=== PATIENT | female | born 1980 | race African-American/Black ===

== ENCOUNTER 2016-08-07 23:41 | Emergency (ER) | payer MEDICAID ==
[2016-08-08] MEDS ORDERED: ACETAMINOPHEN 325 MG TABLET PO ONE (00:03)
[2016-08-08] MEDS ORDERED: ONDANSETRON 4 MG TAB.RAPDIS PO ONE (00:03)
--- NOTE | 2016-08-08 00:03 | ER Document Report ---
ED Medical Screen (RME) - General Chief Complaint: Headache Stated Complaint: HEADACHE Time seen by provider: 00:00 Mode of Arrival: Ambulatory Information source: Patient Notes: 36-year-old female presents to ED for headache since 3:00 this afternoon. She has a history of elevated blood pressure her blood pressure is 131/76 at this time. She has a history of hypothyroid, she has a pacemaker and anxiety. Cranial nerves grossly intact in RME. Patient is alert and oriented. Sensitive to light and sound. Last menstrual period 07/31/2016. I have greeted and performed a rapid initial assessment of this patient. A comprehensive ED assessment and evaluation of the patient, analysis of test results and completion of medical decision making process will be conducted by an additional ED providers. TRAVEL OUTSIDE OF THE [place] IN LAST 30 DAYS: No - Related Data Allergies/Adverse Reactions: No Known Allergies Allergy (Verified 05/20/13 17:08) Past Medical History - Past Medical History Cardiac Medical History: Reports: Hx Coronary Artery Disease, Hx Heart Attack - cardiac arrest, Hx Hypertension Pulmonary Medical History: Denies: Hx Tuberculosis Psychiatric Medical History: Reports: Hx Depression, Hx Post Traumatic Stress Disorder Past Surgical History: Reports: Hx Cardiac Surgery - ICD, Hx Section - x1 - Immunizations Hx Diphtheria, Pertussis, Tetanus Vaccination: Yes - 2010 Physical Exam - Vital signs Vitals: Temp Pulse Resp BP Pulse Ox 97.8 F 64 16 131/76 H 100 08/07/16 23:50 08/07/16 23:50 08/07/16 23:50 08/07/16 23:50 08/07/16 23:50 Course - Vital Signs Vital signs: Temp Pulse Resp BP Pulse Ox 97.8 F 64 16 131/76 H 100 08/07/16 23:50 08/07/16 23:50 08/07/16 23:50 08/07/16 23:50 08/07/16 23:50
[2016-08-08] MEDS ORDERED: ACETAMINOPHEN 325 MG TABLET ONE (00:04)
[2016-08-08] MEDS ORDERED: ONDANSETRON 4 MG TAB.RAPDIS ONE (00:04)
[2016-08-08] MEDS ORDERED: METOCLOPRAMIDE HCL INJ/PF 10 MG/2 ML SDV IV ONE (03:44)
[2016-08-08] MEDS ORDERED: KETOROLAC TROMETHAMINE INJ/PF 30 MG/1 ML SDV IV ONE (03:44)
[2016-08-08] MEDS ORDERED: DIPHENHYDRAMINE HCL 50 MG/ML VIAL IV ONE (03:44)
--- NOTE | 2016-08-08 03:47 | ER Document Report ---
ED General - General Chief Complaint: Headache Stated Complaint: HEADACHE Mode of Arrival: Ambulatory Notes: Patient is a 36-year-old female presents with complaint of a headache. Patient says that it started as just some mild nagging pain over the right frontal sinus. He gradually worsened throughout the day. Some photophobia. No nausea. No vomiting. No recent traumas or injuries. No pain to the back of her head. No pain in her neck or back. No family history of cerebral aneurysms. No other complaints at this time. TRAVEL OUTSIDE OF THE [place] IN LAST 30 DAYS: No - Related Data Allergies/Adverse Reactions: No Known Allergies Allergy (Verified 05/20/13 17:08) Past Medical History - General Information source: Patient - Social History Smoking Status: Never Smoker Chew tobacco use (# tins/day): No Frequency of alcohol use: None Drug Abuse: None Family History: None Patient has suicidal ideation: No Patient has homicidal ideation: No - Past Medical History Cardiac Medical History: Reports: Hx Coronary Artery Disease, Hx Heart Attack - cardiac arrest, Hx Hypertension Pulmonary Medical History: Denies: Hx Tuberculosis Renal/ Medical History: Denies: Hx Peritoneal Dialysis Psychiatric Medical History: Reports: Hx Depression, Hx Post Traumatic Stress Disorder Past Surgical History: Reports: Hx Cardiac Surgery - ICD, Hx Section - x1 - Immunizations Hx Diphtheria, Pertussis, Tetanus Vaccination: Yes - 2010 Review of Systems - Review of Systems Notes: My Normal Review Basic REVIEW OF SYSTEMS: CONSTITUTIONAL : Denies fever, chills, or sweats. Denies recent illness. RESPIRATORY: Denies cough, cold, or chest congestion. Denies shortness of breath, difficulty breathing, or wheezing. GASTROINTESTINAL: Denies abdominal pain. Denies nausea, vomiting, or diarrhea. Denies constipation. Last BM: MUSCULOSKELETAL: Denies neck or back pain or joint pain or swelling. SKIN: Denies rash or skin lesions. NEUROLOGICAL: Denies altered mental status or loss of consciousness. Has a headache. Denies weakness or paralysis or loss of use of either side. Denies problems with gait or speech. Denies sensory or motor loss. ALL OTHER SYSTEMS REVIEWED AND NEGATIVE. Physical Exam - Vital signs Vitals: Temp Pulse Resp BP Pulse Ox 97.8 F 64 16 131/76 H 100 08/07/16 23:50 08/07/16 23:50 08/07/16 23:50 08/07/16 23:50 08/07/16 23:50 - Notes Notes: General Appearance: Well nourished, alert, cooperative, no acute distress, mild obvious discomfort. Well-appearing Vitals: reviewed, See vital signs table. Head: Mild pain when tapping over the right frontal sinus. Eyes: PERRL, EOMI, Conjuctiva clear Mouth: No decreasd moisture Neck: Supple, no neck tenderness, No thyromegaly Lungs: No wheezing, No rales, No rhonci, No accessory muscle use, good air exchange bilaterally. Heart: Normal rate, Regular rythm, No murmur, no rub Extremities: strength 5/5 in all extremities, good pulses in all extremities, no swelling or tenderness in the extremities, no edema. Skin: warm, dry, appropriate color, no rash Neuro: speech clear, oriented x 3, normal affect, responds appropriately to questions. Cranial nerves II through XII are intact. Distal sensation intact. Patient moves all extremities without difficulty. Course - Vital Signs Vital signs: Temp Pulse Resp BP Pulse Ox 97.8 F 64 16 131/76 H 100 08/07/16 23:50 08/07/16 23:50 08/07/16 23:50 08/07/16 23:50 08/07/16 23:50 - Transfer of Care Notes: 08/08/16 05:26 Patient's headache is completely resolved. She looks very well. I feel she is safe to be discharged home. I do not obtain a CT scan of her head. I do not suspect a life-threatening or serious cause for headache. Subarachnoid hemorrhage is highly unlikely that she has no neurologic deficits, her headache is very gradual in onset, no headache in the back of her head and then associated neck pain, and she looks very well and comfortable. I strongly encouraged patient to return to ER immediately if she has recurrent worsening headaches, fevers, vomiting, or feels unwell. Patient agrees with plan and will be discharged home. Dictation of this chart was performed using voice recognition software; therefore, there may be some unintended grammatical errors. Discharge - Discharge Clinical Impression: Headache Qualifiers: Headache type: unspecified Headache chronicity pattern: acute headache Intractability: not intractable Qualified Code(s): R51 - Headache Condition: Good Disposition: HOME, SELF-CARE Additional Instructions: HEADACHE: The physician does not feel that the headache you are experiencing has a serious underlying cause. Most headaches are due to emotional stress, with resultant muscle tension (tension headache). Occasionally, headaches are secondary to changes in the blood vessels of the scalp (vascular headache and migraine headache). Sometimes, a headache is the first symptom of another developing illness, such as a viral infection. You have no evidence of stroke, bleeding, meningitis, or other serious cause of your headache. The treatment of headaches varies with the severity and cause of the pain. Not all headaches need pain shots. In fact, there is evidence that using narcotics for headaches may make them worse in the long run. The physician will determine the therapy that's in your best interest. If you develop a fever, if the headache is different from any you've previously experienced, or if the headache progressively worsens, then call your physician at once or go to the emergency room. FOLLOW-UP CARE: If you have been referred to a physician for follow-up care, call the physician s office for an appointment as you were instructed or within the next two days. If you experience worsening or a significant change in your symptoms, notify the physician immediately or return to the Emergency Department at any time for re-evaluation. Some of the medication that we gave you may make you sleepy. Please make sure that do take a taxi Home and do not drive. Please return to ER immediately if you have severe, worsening headache, fevers, vomiting, or feel unwell. Referrals: CHUCKY CORCORAN, [Primary Care Provider] - Follow up in 3-5 days
[2016-08-08 06:07] VITALS: BP 116/78
== END 2016-08-08 06:07 | disposition home or self-care (01) ==
LOC: ER 23:41
DX: R51 Headache (principal); I25.10 Atherosclerotic heart disease of native coronary artery without angina pectoris; I10 Essential (primary) hypertension; I25.2 Old myocardial infarction
CPT/HCPCS: 99283; 96374; 96375; J3490; J1200; S0119; J1885; J2765

== ENCOUNTER 2016-11-02 14:13 | Emergency (ER) | payer MEDICAID ==
--- NOTE | 2016-11-02 18:59 | ER Document Report ---
ED General - General Chief Complaint: Knee Pain Stated Complaint: KNEE PAIN Mode of Arrival: Ambulatory Information source: Patient Notes: Patient is a 36-year-old -[place] female presents with right knee pain. Previously she has had chronic knee pain and was seen by her regular doctor advised and a week ago and received a shot in her knee for some swelling. She states today she bent over to [employer] her son and felt something pop in the front part of her knee. She denies any associated swelling, bruising, warmth, redness. She states that she has been ambulatory but as she sits and does not walk, her knee feels stiffer. She has not had any medication for this. TRAVEL OUTSIDE OF THE [place] IN LAST 30 DAYS: No - Related Data Allergies/Adverse Reactions: No Known Allergies Allergy (Verified 11/02/16 15:00) Past Medical History - General Information source: Patient - Social History Smoking Status: Unknown if Ever Smoked Family History: None Patient has suicidal ideation: No Patient has homicidal ideation: No - Past Medical History Cardiac Medical History: Reports: Hx Coronary Artery Disease, Hx Heart Attack - cardiac arrest, Hx Hypertension Pulmonary Medical History: Denies: Hx Tuberculosis Renal/ Medical History: Denies: Hx Peritoneal Dialysis Psychiatric Medical History: Reports: Hx Depression, Hx Post Traumatic Stress Disorder Past Surgical History: Reports: Hx Cardiac Surgery - ICD, Hx Section - x1 - Immunizations Hx Diphtheria, Pertussis, Tetanus Vaccination: Yes - 2010 Review of Systems - Review of Systems Constitutional: See HPI EENT: No symptoms reported Cardiovascular: No symptoms reported Respiratory: No symptoms reported Gastrointestinal: No symptoms reported Genitourinary: No symptoms reported Female Genitourinary: No symptoms reported Musculoskeletal: See HPI Skin: No symptoms reported Hematologic/Lymphatic: No symptoms reported Neurological/Psychological: No symptoms reported Physical Exam - Vital signs Vitals: Temp Pulse Resp BP Pulse Ox 98.3 F 54 L 16 130/85 H 100 11/02/16 15:02 11/02/16 15:02 11/02/16 15:02 11/02/16 15:02 11/02/16 15:02 Interpretation: Hypertensive - Notes Notes: PHYSICAL EXAM: CONSTITUTIONAL: Alert and oriented, well-appearing and in no acute distress. HENT: Normocephalic, atraumatic. Moist mucous membranes. NECK: supple without lymphadenopathy. ROM intact. HEART: Regular rate and rhythm without murmurs. LUNGS: CTAB and equal. No wheezes, rales or rhonchi. BACK: nontender, no paraspinous spasm, 5+/5 strengths, DTRs 2+, SLR -. EXTREMITIES: Right knee - tender to palpation at patella and along patellar- tibial tendon. No effusion, edema, ecchymosis, warmth or erythem anoted. ROM intact in flexion and extension. Negative anterior and posterior drawer test. Varus and Valgus stress negative for pain or laxity. All other extremities - Normal range of motion, no pitting edema. No cyanosis. Cap Refill <3 seconds. NEURO: Cranial nerves grossly intact. Normal sensory/motor exams. SKIN: Warm and dry. Normal turgor. No rashes or lesions noted. Course - Re-evaluation Re-evalutation: 11/02/16 19:11 Patient seen and examined. Exam of right knee is negative for evidence of cellulitis, compartment syndrome, acute fracture or dislocation. Range of motion intact. Neurovascular intact. Exam consistent with knee sprain. At this time without bony tenderness or traumatic injury, I do not feel x-rays are warranted. Will provide patient with anti-inflammatory and Hadley wrap. Advised patient to follow up with her primary care doctor for referral to orthopedics. Patient in agreement with assessment and plan. At this time, will discharge with return precautions and follow-up recommendations. Verbal discharge instructions given at the bedside and opportunity for questions given. Medication warnings reviewed. Patient is in agreement with this plan and has verbalized understanding of return precautions and the need for primary care follow-up in the next 24-72 hours. - Vital Signs Vital signs: Temp Pulse Resp BP Pulse Ox 98.3 F 54 L 16 130/85 H 100 11/02/16 15:02 11/02/16 15:02 11/02/16 15:02 11/02/16 15:02 11/02/16 15:02 Procedures - Immobilization Right Anterior Knee Pre-Proc Neuro Vasc Exam: Normal Immobilizer type: Hadley wrap Performed by: PCT Post-Proc Neuro Vasc Exam: Normal Alignment checked and good: Yes Discharge - Discharge Clinical Impression: Right knee sprain Qualifiers: Encounter type: initial encounter Involved ligament of knee: other ligament Qualified Code(s): S83.8X1A - Sprain of other specified parts of right knee, initial encounter Condition: Stable Disposition: HOME, SELF-CARE Additional Instructions: Call your primary care doctor to schedule follow-up appointment. We recommended you follow up with them within the next 1-2 days. Please return if you experience any severe pain, severe swelling, redness, warmth. SPRAIN: Your injury is a sprain. A sprain results from stretching or tearing of the ligaments, usually from a twisting injury. The ligaments will require time and protection in order to heal properly. Many sprains are quite disabling and should be taken seriously. The usual initial treatment of sprains is cold packs, elevation, and rest of the injured area. Your physician has assessed the seriousness of your ligament injury, and has outlined a treatment plan. Understand that this treatment may change, depending on how you progress. If a re-examination was recommended, it is important that you follow up as instructed. Call the doctor any time if there is severe pain, numbness, or loss of function in the injured area. HADLEY WRAP: A compression dressing (hadley wrap) has been placed. This helps hold the area still. It limits swelling and internal bleeding. The wrap should be comfortably snug -- not tight. You should feel a sense of pressure, but not severe pain under the wrap. Unless the physician tells you otherwise, you can adjust the wrap for comfort. If the wrap causes symptoms suggesting it's too tight -- uncomfortable pressure, swelling or discoloration beyond the wrap, numbness, or severe pain - - you must loosen the wrap. If these symptoms don't resolve promptly, return for re-evaluation. SPRAINED KNEE: Your sprained knee results from a stretching or tearing of the ligaments which support the joint. This often results from a bending stress -- such as a twisting fall while skiing or a "clip" while playing football. The ligaments will require time and protection to heal adequately. A knee sprain can be quite serious, and should be taken seriously. The usual treatment is splinting of the knee, ice packs, and elevation. You shouldn't walk on the leg if weightbearing is painful. Unless the sprain is obviously a minor one, follow-up exam is very important. The degree of ligament damage often cannot be fully assessed at first due to muscle spasm and pain. Your treatment plan may change based on the physician's findings during your follow-up examination. Call the doctor at once if there is severe swelling, increasing pain, numbness, or other alarming symptoms. USE OF CRUTCHES: The doctor has recommended that you not bear weight at this time. You will need to use crutches. Adjust the crutches so the tops come to about two inches under the armpit while you are standing upright. Use your hands -- not your armpits -- to support your weight. To get into a chair, support yourself with one crutch on the injured side. Hold the chair with the other hand, then lower yourself while putting all your weight on the good leg. Going up stairs is `good leg up, step up, then bring up crutches and bad leg.' Down stairs is `bad leg and crutches down, then bring good leg down.' If you develop numbness or swelling in an arm or hand, you are using the crutches incorrectly. Return if you are having any problems with the crutches. ICE & ELEVATION: Apply ice packs frequently against the painful area. Many different schedules are recommended, such as "20 minutes on, 20 minutes off" or "one hour ice, two hours rest." If you need to work, you may need to go longer between ice treatments. You should plan to have the area ice packed AT LEAST one- fourth of the time. The ice should be applied over the wrap, tape, or splint, or over a layer of cloth -- not directly against the skin. Some ice bags have a built-in cloth and can be put directly on the skin. Your injured part should be elevated as much as possible over the next 48 hours. Try to keep the injury above the level of the heart. Avoid use of the injured area. Elevation and rest will decrease the swelling. USE OF [id number] IBUPROFEN: Ibuprofen (Advil, Nuprin, Medipren, Motrin IB) is a medication for fever and pain control. In addition, it has anti- inflammatory effects which may be beneficial, especially in the treatment of injuries. It's best to take ibuprofen with food. Persons with ulcer disease or allergy to aspirin should notify their physician of this before taking ibuprofen. Ibuprofen can be given every four to six hours, for a total of four doses daily. Age Pain or fever dose Antiinflammatory dose 6-8 yr 200 mg (1 tab) 200 mg (1 tab) 9-11 yr 200 mg (1 tab) 200-400 mg (1-2 tab) 11-14 yr 200-400 mg (1-2 tab) 400 mg (2 tab) 15-adult 400 mg (2 tab) 600 mg (3 tab) ORAL NARCOTIC MEDICATION: You have been given a prescription for pain control. This medication is a narcotic. It's best taken with food, as nausea can result if taken on an empty stomach. Don't operate machinery or drive within six hours of taking this medication. Do not combine this medicine with alcohol, or with any medication which can cause sedation (such as cold tablets or sleeping pills) unless you get permission from the physician. Narcotics tend to cause constipation. If possible, drink plenty of fluids and eat a diet high in fiber and fruits. Please be aware that prescription narcotics also have the potential for abuse. People become addicted to these medications because of the general sense of wellbeing that they induce. This feeling along with a significant reduction in tension, anxiety, and aggression provides a stimulating seductive quality to these drugs. Once your pain is under control, we encourage you to discard your unused narcotics. FOLLOW-UP CARE: If you have been referred to a physician for follow-up care, call the physician s office for an appointment as you were instructed or within the next two days. If you experience worsening or a significant change in your symptoms, notify the physician immediately or return to the Emergency Department at any time for re-evaluation. Prescriptions: Tramadol HCl/Acetaminophen [Ultracet 37.5 mg/325 mg Tablet] 1 each PO Q8H #20 tablet Forms: Return to Work
[2016-11-02] MEDS ORDERED: HYDROCODONE/ACETAMINOPHEN 5-325 MG TABLET PO ONE (19:07)
[2016-11-02 20:03] VITALS: BP 127/84
== END 2016-11-02 20:03 | disposition home or self-care (01) ==
LOC: ER 14:13
DX: S83.91XA Sprain of unspecified site of right knee, initial encounter (principal); X58.XXXA Exposure to other specified factors, initial encounter; I25.10 Atherosclerotic heart disease of native coronary artery without angina pectoris; I25.2 Old myocardial infarction; I10 Essential (primary) hypertension; Z95.810 Presence of automatic (implantable) cardiac defibrillator
CPT/HCPCS: 99283

== ENCOUNTER → 2016-11-11 | Outpatient (CLI) | payer MEDICAID | LOC: OD 09:03 | PROVIDERS: ATTEND Student in an Organized Health Care Education/Training Program | DX: M25.561 Pain in right knee (principal) ==

== ENCOUNTER 2017-03-10 04:07 | Emergency (ER) | payer MEDICAID ==
--- NOTE | 2017-03-10 04:41 | ER Document Report ---
ED Medical Screen (RME) - General Chief Complaint: Chest Pain Stated Complaint: CHEST PAIN Time Seen by Provider: 03/10/17 04:40 Notes: Patient is a 37-year-old female who comes emergency department for chief complaint of her defibrillator firing, she states she awoke from sleep because her defibrillator fired, she states that it fired once more. She denies feeling palpitations, racing heart, or chest pain before it fired the second time when she was awake. She denies any current symptoms other than feeling nervous. She states she thinks she has a pacer/defibrillator but she isn't sure. She states she has it because she had a "cardiac arrest" in 2012. She denies bypass surgery or stenting. She is medicated for hyperthyroidism, anxiety, and also takes metoprolol. She reports she is compliant with her medications. TRAVEL OUTSIDE OF THE [place] IN LAST 30 DAYS: No - Related Data Allergies/Adverse Reactions: No Known Allergies Allergy (Verified 11/02/16 15:00) Past Medical History - Past Medical History Cardiac Medical History: Reports: Hx Coronary Artery Disease, Hx Heart Attack - cardiac arrest, Hx Hypertension Pulmonary Medical History: Denies: Hx Tuberculosis Renal/ Medical History: Denies: Hx Peritoneal Dialysis Psychiatric Medical History: Reports: Hx Depression, Hx Post Traumatic Stress Disorder Past Surgical History: Reports: Hx Cardiac Surgery - ICD, Hx Section - x1 - Immunizations Hx Diphtheria, Pertussis, Tetanus Vaccination: Yes - 2010 Physical Exam - Respiratory Respiratory status: No respiratory distress Breath sounds: Normal. No: Decreased air movement, Wheezing - Cardiovascular Rhythm: Regular. No: Tachycardia Heart sounds: Normal auscultation, S1 appreciated, S2 appreciated
[2017-03-10 04:57] LABS: ABSOLUTE LYMPHOCYTES (AUTO) 1.6 10^3/uL (0.5-4.7); ABSOLUTE MONOCYTES (AUTO) 0.6 10^3/uL (0.1-1.4); ABSOLUTE NEUT (AUTO) 2.4 10^3/uL (1.7-8.2); BASOPHILS % (AUTO) 0.7 % (0-2); EOSINOPHILS % (AUTO) 0.5 % (0-6); HEMOGLOBIN 10.9 g/dL (12.0-15.5); HGB HCT DIFFERENCE -1.3; LYMPHOCYTES % (AUTO) 34.5 % (13-45); MEAN CORPUSCULAR HEMOGLOBIN 27.2 pg (27.0-33.4); MEAN CORPUSCULAR HGB CONC 32.2 g/dL (32.0-36.0); MEAN CORPUSCULAR VOLUME 85 fl (80-97); MONOCYTES % (AUTO) 12.4 % (3-13); RED BLOOD COUNT 4.02 10^6/uL (3.72-5.28); RED CELL DISTRIBUTION WIDTH 16.2 % (11.5-14.0); SEGMENTED NEUTROPHILS % (AUTO) 51.9 % (42-78); WHITE BLOOD COUNT 4.6 10^3/uL (4.0-10.5)
--- NOTE | 2017-03-10 05:19 | RADIOLOGY REPORT (SQ) ---
EXAM DESCRIPTION: CHEST SINGLE VIEW COMPLETED DATE/TIME: 03/10/2017 5:09 am REASON FOR STUDY: chest pain COMPARISON: Chest x-ray 06/08/2013. EXAM PARAMETERS: NUMBER OF VIEWS: One view. TECHNIQUE: Single frontal radiographic view of the chest acquired. RADIATION DOSE: NA LIMITATIONS: None. FINDINGS: LUNGS AND PLEURA: No consolidation, pneumothorax or pleural effusion. MEDIASTINUM AND HILAR STRUCTURES: No masses. Contour normal. HEART AND VASCULAR STRUCTURES: Heart normal in size. Normal vasculature. BONES: No acute findings. HARDWARE: There is a left-sided pacemaker. IMPRESSION: No acute radiographic finding in the chest. TECHNICAL DOCUMENTATION: JOB ID: [id number]
[2017-03-10 05:39] LABS: CREATINE KINASE MB < 0.22 ng/mL (<4.55); TROPONIN I < 0.012 ng/mL
[2017-03-10 06:15] LABS: ALANINE AMINOTRANSFERASE 23 U/L (9-52); ALBUMIN 4.1 g/dL (3.5-5.0); ALKALINE PHOSPHATASE 66 U/L (38-126); ANION GAP 11 (5-19); ASPARTATE AMINO TRANSFERASE 30 U/L (14-36); BILIRUBIN,DIRECT 0.4 mg/dL (0.0-0.4); BILIRUBIN,TOTAL 0.5 mg/dL (0.2-1.3); BLOOD UREA NITROGEN 15 mg/dL (7-20); CALCIUM 9.3 mg/dL (8.4-10.2); CARBON DIOXIDE 25 mmol/L (22-30); CHLORIDE 101 mmol/L (98-107); CREATINE KINASE 89 U/L (30-135); CREATININE RESULT 0.86 mg/dL (0.52-1.25); GLUCOSE 100 mg/dL (75-110); MAGNESIUM 1.5 mg/dL (1.6-2.3); POTASSIUM 3.3 mmol/L (3.6-5.0); SODIUM 136.8 mmol/L (137-145); TOTAL PROTEIN 7.7 g/dL (6.3-8.2)
--- NOTE | 2017-03-10 06:58 | ER Document Report ---
ED Cardiac - General Mode of Arrival: Ambulatory Information source: Patient TRAVEL OUTSIDE OF THE [place] IN LAST 30 DAYS: No <AIDA LITTLE - Last Filed: 03/10/17 07:14> <NIDA GOMEZ - Last Filed: 03/10/17 09:47> - General Chief Complaint: Chest Pain Stated Complaint: CHEST PAIN Time Seen by Provider: 03/10/17 04:40 Notes: Patient is a 37-year-old female who presents to the emergency department today with complaints of her defibrillator firing 2 prior to arrival. Patient had her defibrillator placed in 2010 secondary to "cardiac arrest". Patient is unsure of the details regarding this arrest. Patient states that the last time her defibrillator fired was in 2012 when it fired twice at that time as well. Patient states she was sleeping today when her defibrillator discharged. Patient has no complaints at this time. (AIDA LITTLE) - Related Data Allergies/Adverse Reactions: No Known Allergies Allergy (Verified 11/02/16 15:00) Home Medications: Current Home Medications Ascorbic Acid [Vitamin C] 1,000 mg PO DAILY 03/10/17 [History] Aspirin 81 mg PO DAILY 03/10/17 [History] Buspirone HCl [Buspar 5 mg Tablet] 1 tab PO BID 03/10/17 [History] Cholecalciferol (Vitamin D3) [Vitamin D3 2000 unit Tablet] 2,000 unit PO DAILY 03/10/17 [History] Clonazepam [Klonopin 1 mg Tablet] 1 mg PO BID 03/10/17 [History] Ferrous Gluconate [Iron] 236 mg PO DAILY 03/10/17 [History] Magnesium Oxide [Magox] 400 mg PO DAILY 03/10/17 [History] Methimazole [Tapazole 5 Mg Tablet] 2.5 mg PO DAILY 03/10/17 [History] Metoprolol Tartrate [Lopressor 100 mg Tablet] 100 mg PO Q12 03/10/17 [History] Omeprazole 40 mg PO DAILY 03/10/17 [History] Past Medical History - General Information source: Patient - Social History Smoking Status: Never Smoker Cigarette use (# per day): No Chew tobacco use (# tins/day): No Frequency of alcohol use: None Drug Abuse: None Lives with: Family Family History: None Patient has suicidal ideation: No Patient has homicidal ideation: No - Past Medical History Cardiac Medical History: Reports: Hx Coronary Artery Disease, Hx Heart Attack - cardiac arrest, Hx Hypertension Psychiatric Medical History: Reports: Hx Depression, Hx Post Traumatic Stress Disorder Past Surgical History: Reports: Hx Cardiac Surgery - ICD, Hx Section - x1 - Immunizations Hx Diphtheria, Pertussis, Tetanus Vaccination: Yes - 2010 <AIDA LITTLE - Last Filed: 03/10/17 07:14> Review of Systems - Review of Systems Constitutional: No symptoms reported EENT: No symptoms reported Cardiovascular: See HPI, Other - Defibrillator fired Respiratory: No symptoms reported Gastrointestinal: No symptoms reported Genitourinary: No symptoms reported Female Genitourinary: No symptoms reported Musculoskeletal: No symptoms reported Skin: No symptoms reported Hematologic/Lymphatic: No symptoms reported Neurological/Psychological: No symptoms reported -: Yes All other systems reviewed and negative <AIDA LITTLE - Last Filed: 03/10/17 07:14> Physical Exam <AIDA LITTLE - Last Filed: 03/10/17 07:14> <NIDA GOMEZ - Last Filed: 03/10/17 09:47> - Vital signs Vitals: Resp Pulse Ox 19 100 03/10/17 04:39 03/10/17 04:39 - Notes Notes: Physical Exam: General: Alert, appears well. HEENT: Normocephalic. Atraumatic. PERRL. Extraocular movements intact. Oropharynx clear. Neck: Supple. Non-tender. Respiratory: No respiratory distress. Clear and equal breath sounds bilaterally. Cardiovascular: Regular rate and rhythm. Abdominal: Obese. Non-tender. No distension. Normal Bowel Sounds. Back: Non-tender. No deformity or step off. Extremities: Moves all four extremities. Upper extremities: Normal inspection. Normal ROM. Lower extremities: Normal inspection. No edema. Normal ROM. Neurological: Normal cognition. AAOx4. Normal speech. Psychological: Normal affect. Normal Mood. Skin: Warm. Dry. Normal color. (AIDA LITTLE) Course - Laboratory Result Diagrams: 03/10/17 04:45 03/10/17 04:45 <AIDA LITTLE - Last Filed: 03/10/17 07:14> - Laboratory Result Diagrams: 03/10/17 04:45 03/10/17 04:45 - Diagnostic Test Radiology reviewed: Image reviewed, Reports reviewed - NAD - EKG Interpretation by Me EKG shows normal: Sinus rhythm, [place], Intervals, QRS Complexes, ST-T Waves Rate: Normal - 84 Rhythm: NSR <NDIA GOMEZ - Last Filed: 03/10/17 09:47> - Re-evaluation Re-evalutation: 03/10/17 09:18 Report from [employer] shows the patient's defibrillator went off at 02 38 in response to sustained V. fib. It only shows the defibrillator going off one time. (NIDA GOMEZ) - Vital Signs Vital signs: Temp Pulse Resp BP Pulse Ox 98.4 F 12 112/70 100 03/10/17 04:49 03/10/17 09:01 03/10/17 09:01 03/10/17 09:01 - Laboratory Laboratory results interpreted by me: 03/10/17 03/10/17 04:45 04:45 Hgb 10.9 L Hct 34.0 L RDW 16.2 H Sodium 136.8 L Potassium 3.3 L Magnesium 1.5 L Discharge <AIDA LITTLE - Last Filed: 03/10/17 07:14> <NIDA GOMEZ - Last Filed: 03/10/17 09:47> - Discharge Clinical Impression: Ventricular fibrillation, Defibrillator discharge, Hypokalemia, Hypomagnesemia Condition: Stable Disposition: HOME, SELF-CARE Additional Instructions: The analysis of your defibrillator shows it fired only one time in response to sustained ventricular fibrillation. Your magnesium levels were low just as they were when you were admitted here in 2012. Your potassium levels are also low today. You should increase magnesium and potassium in your diet. Follow-up with Dr. Solorzano tomorrow in the office as planned. RETURN TO THE EMERGENCY ROOM IF ANY NEW OR WORSENING SYMPTOMS. Referrals: MAME SOLORZANO MD [ACTIVE STAFF] - Follow up tomorrow Scribe Attestation: 03/10/17 08:22 I personally performed the services described in the documentation, reviewed and edited the documentation which was dictated to the scribe in my presence, and it accurately records my words and actions. (NIDA GOMEZ) Scribe Documentation - Scribe Written by Amarilys:: Amarilys Durbin, 03/10/2017 0735 acting as scribe for :: Eron <AIDA LITTLE - Last Filed: 03/10/17 07:14>
[2017-03-10] MEDS ORDERED: MAGNESIUM SULFATE INJ 8 MEQ/2 ML IV ONE (07:48)
[2017-03-10] MEDS ORDERED: POTASSIUM CHLORIDE 20 MEQ/15 ML UDCUP PO ONE (07:48)
[2017-03-10 08:58] LABS: FREE T3 4.67 pg/mL (2.77-5.27)
[2017-03-10 10:10] VITALS: BP 118/74
--- NOTE | 2017-03-10 19:34 | PDOC CONSULTATION ---
Consultation Consult Date: 03/10/17 Attending physician:: NIDA GOMEZ Consult reason:: Defibrillator discharges History of Present Illness Admission Date/PCP: CHUCKY CORCORAN DO Patient complains of: Defibrillator discharges History of Present Illness: MARK URIAS is a 37 year old female who presents to the emergency department today with complaints of her defibrillator firing 2 prior to arrival. Patient had her defibrillator placed in 2010 secondary to "cardiac arrest". Patient is unsure of the details regarding this arrest. Patient states that the last time her defibrillator fired was in 2012 when it fired twice at that time as well. Patient states she was sleeping today when her defibrillator discharged. Patient has no complaints at this time. Patient claims that at the time of defibrillator placement she also had a heart catheterization during which she was noted to have patent coronaries. Patient is denying any exertional chest pain. Patient does have history of snoring, difficulty falling asleep, staying asleep, daytime fatigue and sleepiness. Patient denied any family history of premature coronary artery disease or sudden cardiac . Past Medical History Cardiac Medical History: Reports: Coronary Artery Disease, Myocardial Infarction - cardiac arrest, Hypertension Pulmonary Medical History: Denies: Tuberculosis Psychiatric Medical History: Reports: Depression, Post Traumatic Stress Disorder Hematology: Reports: Anemia Past Surgical History Past Surgical History: Reports: Section - x1 Social History Information Source: Patient Lives with: Family Smoking Status: Never Smoker Frequency of Alcohol Use: None Hx Recreational Drug Use: No Hx Prescription Drug Abuse: No - Advance Directive Resuscitation Status: Full Code Family History Family History: Hypertension Parental Family History Reviewed: Yes Children Family History Reviewed: Yes Sibling(s) Family History Reviewed.: Yes Medication/Allergy Home Medications: Ascorbic Acid [Vitamin C] 1,000 mg PO DAILY 03/10/17 Aspirin 81 mg PO DAILY 03/10/17 Buspirone HCl [Buspar 5 mg Tablet] 1 tab PO BID 03/10/17 Cholecalciferol (Vitamin D3) [Vitamin D3 2000 unit Tablet] 2,000 unit PO DAILY 03/10/17 Clonazepam [Klonopin 1 mg Tablet] 1 mg PO BID 03/10/17 Ferrous Gluconate [Iron] 236 mg PO DAILY 03/10/17 Magnesium Oxide [Magox] 400 mg PO DAILY 03/10/17 Methimazole [Tapazole 5 Mg Tablet] 2.5 mg PO DAILY 03/10/17 Metoprolol Tartrate [Lopressor 100 mg Tablet] 100 mg PO Q12 03/10/17 Omeprazole 40 mg PO DAILY 03/10/17 Allergies/Adverse Reactions: No Known Allergies Allergy (Verified 11/02/16 15:00) Review of Systems Review of Systems: Please see history of present illness and past medical history as wall. Constitutional: No fever or chills reported. Head : No recent chronic headaches, recent head injury. Eyes: No recent eye pain, diplopia, redness, discharge, acute visual changes. Ears: No recent chronic ear pain, acute hearing loss, ear discharge. Oral cavity: No recent ulcerations, bleeding, oral cavity discomfort. Neck: No recent acute neck pain reported. Hematologic: No recent easy bruising or bleeding or hematologic malignancy reported. Lymphatic: No recent lymphatic malignancy, chronic lymphadenopathy reported yet Cardiovascular system review: See history of present illness. Respiratory system review: No recent chronic cough, hemoptysis, blood clots in the lungs reported. Mild Shortness of breath on exertion. Defibrillator shocks in the past. Gastrointestinal system review: Negative for any recent acute or chronic abdominal pain, hematemesis, melena, recent change in bowel habits. Genitourinary system review: No recent acute or chronic hematuria, flank pain, UTI etc. reported. Skin system review: Negative for any recent abnormal bruising, no rash, no pruritus reported. Neurologic: No prior history of strokes, mini strokes, seizure disorder. Psychologic: No history of major psychosis or major depression reported. Musculoskeletal: Minor aches and pains reported. No acute joint swelling reported. Endocrine: No recent polyuria, polydipsia, recent heat or cold intolerance. Patient has difficulty falling asleep, staying asleep, snoring, daytime fatigue and sleepiness. Physical Exam Vital Signs: Temp Pulse Resp BP Pulse Ox 98.4 F 17 118/74 100 03/10/17 09:57 03/10/17 09:56 03/10/17 09:57 03/10/17 09:01 Intake & Output 03/09/17 03/10/17 03/11/17 06:59 06:59 06:59 Weight 120 kg Results Laboratory Results: 03/10/17 04:45 03/10/17 04:45 03/10/17 03/10/17 03/10/17 04:45 04:45 04:45 WBC 4.6 RBC 4.02 Hgb 10.9 L Hct 34.0 L MCV 85 MCH 27.2 MCHC 32.2 RDW 16.2 H Plt Count 201 Seg Neutrophils % 51.9 Lymphocytes % 34.5 Monocytes % 12.4 Eosinophils % 0.5 Basophils % 0.7 Absolute Neutrophils 2.4 Absolute Lymphocytes 1.6 Absolute Monocytes 0.6 Absolute Eosinophils 0.0 Absolute Basophils 0.0 Sodium 136.8 L Potassium 3.3 L Chloride 101 Carbon Dioxide 25 Anion Gap 11 BUN 15 Creatinine 0.86 Est GFR ( Amer) > 60 Est GFR (Non-Af Amer) > 60 Glucose 100 Calcium 9.3 Magnesium 1.5 L Total Bilirubin 0.5 AST 30 ALT 23 Alkaline Phosphatase 66 Total Protein 7.7 Albumin 4.1 Free T4 Free T3 pg/mL Serum HCG, Qual Cancelled 03/10/17 03/10/17 04:45 06:25 WBC RBC Hgb Hct MCV MCH MCHC RDW Plt Count Seg Neutrophils % Lymphocytes % Monocytes % Eosinophils % Basophils % Absolute Neutrophils Absolute Lymphocytes Absolute Monocytes Absolute Eosinophils Absolute Basophils Sodium Potassium Chloride Carbon Dioxide Anion Gap BUN Creatinine Est GFR ( Amer) Est GFR (Non-Af Amer) Glucose Calcium Magnesium Total Bilirubin AST ALT Alkaline Phosphatase Total Protein Albumin Free T4 1.24 Free T3 pg/mL 4.67 Serum HCG, Qual NEGATIVE 03/10/17 03/10/17 04:45 04:45 Creatine Kinase 89 CK-MB (CK-2) < 0.22 Troponin I < 0.012 EKG Comments: Sinus rhythm, no acute ST-T wave changes noted. Impressions: Chest X-Ray 03/10/17 04:29 IMPRESSION: No acute radiographic finding in the chest. Status: Image reviewed by me - Chest x-ray reviewed by me. Shows borderline cardiomegaly and a single-chamber defibrillator. Assessment & Plan - Diagnosis (1) Defibrillator discharge Is this a current diagnosis for this admission?: Yes (2) Hypokalemia Is this a current diagnosis for this admission?: Yes (3) Hypomagnesemia Is this a current diagnosis for this admission?: Yes (4) Ventricular fibrillation Is this a current diagnosis for this admission?: Yes (5) Obesity Qualifiers: Obesity type: unspecified obesity type Is this a current diagnosis for this admission?: Yes (6) Sleep disorder Is this a current diagnosis for this admission?: Yes - Notes Notes: Defibrillator discharge: Patient does seem to have a functional defibrillator. Patient defibrillator was interrogated. Single shock was reported for ventricular fibrillation at 21 J. Previous records shows multiple episodes of nonsustained ventricular dysrhythmia but no therapy was applied. Patient last antitachycardia pacing with shocks happened in May 2013. Patient's potassium and magnesium were noted to be low and this will be optimized. Ventricular fibrillation: Patient was shocked because of it. There has been no recurrence while being monitored. Hypokalemia: Replace potassium. Will consider spironolactone therapy as an outpatient. Hypomagnesemia: Patient to continue with magnesium replacement. Obesity: Patient advised in weight loss. Sleep disorder/sleep apnea syndrome: Is strongly suspected. Patient will benefit from a sleep study as an outpatient. Patient wanted to be discharged, feel that patient has been monitored long enough in the ER and there was no recurrence of ventricular dysrhythmia. Electrolytes has been replaced. Patient to receive advised to be compliant with medications. Patient can be discharged with outpatient appointment with me tomorrow. Importance of this discussed. Patient to come back to the ER showed recurrence of her defibrillator shocks, sustained palpitations, dizziness syncope or near syncope occurs. Cardiomyopathy: Patient likely to have this condition. Further evaluation with a 2D echocardiogram will be needed. - Time Time Spent: 30 to 50 Minutes - CODE STATUS was discussed, patient remains full code. Surrogate decision-maker not identified by the patient. Multiple medical problems were addressed. More than 50% of the time spent coordinating care, discussing management plans with involved caregivers. Management plans discussed with involved personnels. Medical decision making was of moderate to high complexity, patient's has multiple comorbidities. Medications reviewed and adjusted accordingly: Yes
--- NOTE | 2017-03-10 19:48 | EKG REPORT ---
SEVERITY:- NORMAL ECG - SINUS RHYTHM : Confirmed by: Capo Germain MD 10-Mar-2017 19:46:29
== END 2017-03-10 09:57 | disposition home or self-care (01) ==
LOC: ER 04:07
DX: I49.01 Ventricular fibrillation (principal); E87.6 Hypokalemia; E83.42 Hypomagnesemia; R07.9 Chest pain, unspecified; Z79.899 Other long term (current) drug therapy
CPT/HCPCS: 93005; 99285; 96374; 36415; 84439; 82553; 82550; 83735; 84703; 85025; 80053; 84484; 84481; 71010; 93010; J3475; J3490

== ENCOUNTER → 2017-05-31 | Outpatient (CLI) | payer MEDICAID ==
--- NOTE | 2017-05-31 19:37 | XCELERA REPORT ---
[address] [address] Transthoracic Echocardiogram Report Name: MARK URIAS Age: 37 yrs Gender: Female : 1980 Patient Status: Outpatient Patient Location: Study Date: 05/31/2017 09:45 AM Height: 69 in Weight: 256 lb BSA: 2.3 m2 Reason For Study: CARDIOMYOPATHY Ordering Physician: MARTELL HOLGUIN Performed By: Carolina Mcneil Interpretation Summary small post peric. effusion or fat pad. TR is trace, no pulm hypertension derived. RV poorly seen, RA not delineated well AV morphology poorly seen, no , and no AR. MV no MS. mp MR, and no LA enlargement. LV mild septal hypertrophy, incomplete LV segments visualization. LVEF is at least low normal.>50%. no LV enlargement. LVEDP is elevated. MMode/2D Measurements & Calculations RVDd: 2.9 cm LVIDd: 4.8 cmFS: 26.4 % Ao root diam: 3.2 cm IVSd: 1.1 cm LVIDs: 3.5 cmEDV(Teich): 107.9 ml LVPWd: 1.0 cmESV(Teich): 52.3 ml Ao root area: 7.9 cm2 EF(Teich): 51.5 % LA dimension: 3.9 cm LVOT diam: 2.3 cm LVOT area: 4.2 cm2 Doppler Measurements & Calculations MV E max jluia: MV P1/2t max julia: Ao V2 max: LV V1 max P.6 cm/sec 114.0 cm/sec 125.6 cm/sec 4.5 mmHg MV A max julia: MV P1/2t: 49.1 msec Ao max PG: LV V1 max: 48.9 cm/sec MVA(P1/2t): 4.5 cm2 6.3 mmHg 106.6 cm/sec MV E/A: 2.3 MV dec slope: CAMI(V,D): 3.6 cm2 680.5 cm/sec2 PA V2 max: TR max julia: 70.1 cm/sec 200.9 cm/sec PA max PG: TR max P.1 mmHg 2.0 mmHg Left Ventricle The left ventricle is grossly normal size. There is mild concentric left ventricular hypertrophy. The left ventricular ejection fraction is normal. LV EF is 53%. Doppler measurements suggest normal left ventricular diastolic function. Not all wall segments were well visualized. There is no thrombus. Right Ventricle The right ventricle is not well visualized secondary to technical limitations. Atria Right atrium not well visualized secondary to technical limitations. The left atrial size is normal. The interatrial septum is intact with no evidence for an atrial septal defect. Mitral Valve The mitral valve is normal in structure and function. There is no evidence of mitral valve prolapse. There is no vegetation seen on the mitral valve. There is no mitral valve stenosis. There is no mitral regurgitation noted. Aortic Valve The aortic valve opens well. The aortic valve is not well visualized secondary to technical limitations. There is no aortic valvular vegetation. There is no aortic valve stenosis. No aortic regurgitation is present. Tricuspid Valve The tricuspid valve is not well visualized secondary to technical limitations. There is no tricuspid stenosis. No tricuspid regurgitation. Pulmonic Valve The pulmonic valve is not well visualized. There is no pulmonic valvular regurgitation. Great Vessels The aortic root is normal size. Effusions Small pericardial effusion. I WMSI = 1.00 % Normal = 100 Segments Size X - Cannot 1 - Normal 2 - 3 - Akinetic4 - 1-2 small Interpret Hypokinetic Dyskinetic 3-5 moderate 5 - 6-14 large Aneurysmal 15-16 diffuse : MARTELL HOLGUIN > Capo Germain
== END ==
LOC: SP 09:17
PROVIDERS: ATTEND Hospitalist
DX: Z86.79 Personal history of other diseases of the circulatory system (principal)
CPT/HCPCS: 93306

== ENCOUNTER 2017-06-15 17:11 | Emergency (ER) | payer MEDICAID ==
[2017-06-15 18:46] LABS: ALANINE AMINOTRANSFERASE 23 U/L (9-52); ALBUMIN 4.1 g/dL (3.5-5.0); ALKALINE PHOSPHATASE 62 U/L (38-126); ANION GAP 9 (5-19); ASPARTATE AMINO TRANSFERASE 15 U/L (14-36); BILIRUBIN,DIRECT 0.3 mg/dL (0.0-0.4); BILIRUBIN,TOTAL 0.3 mg/dL (0.2-1.3); BLOOD UREA NITROGEN 15 mg/dL (7-20); CALCIUM 9.8 mg/dL (8.4-10.2); CARBON DIOXIDE 28 mmol/L (22-30); CHLORIDE 106 mmol/L (98-107); CREATINE KINASE 80 U/L (30-135); GLUCOSE 82 mg/dL (75-110); POTASSIUM 4.2 mmol/L (3.6-5.0); SODIUM 143.4 mmol/L (137-145); TOTAL PROTEIN 7.4 g/dL (6.3-8.2)
--- NOTE | 2017-06-15 18:47 | ER Document Report ---
ED Cardiac - General Chief Complaint: Chest Pain Stated Complaint: CHEST PAIN Time Seen by Provider: 06/15/17 17:57 Mode of Arrival: Ambulatory Information source: Patient, [facility] Records Notes: This 37-year-old female patient reports waking up this morning with anterior chest pain. She does have a past history significant for a defibrillator placed in 2010 secondary to a cardiac arrest. She does have hyperthyroidism and has been hypomagnesemic and hypokalemic in the past. She does have a defibrillator related to a pulseless cardiac arrest on 2010. Review of the ER records from that date do not indicate what the rhythm was, but she was defibrillated several times by EMS prior to arrival. The patient reports that she was told that her "pipes were seen" at [facility], where an AICD was placed. TRAVEL OUTSIDE OF THE [place] IN LAST 30 DAYS: No - Related Data Allergies/Adverse Reactions: No Known Allergies Allergy (Verified 06/15/17 17:58) Past Medical History - General Information source: Patient, [facility] Records - Social History Smoking Status: Never Smoker Cigarette use (# per day): No Chew tobacco use (# tins/day): No Smoking Education Provided: No Frequency of alcohol use: None Drug Abuse: None Occupation: Unemployed Lives with: Family Family History: Hypertension Patient has suicidal ideation: No Patient has homicidal ideation: No - Medical History Medical History: Other - The patient had what sounds like ventricular fibrillation arrest on 05/31/2011. She states the nurse ob at [facility] told her that her "pipes were cleaned". Did have an AICD implanted at that time. She was seen here on 05/16/2013 for SVT and AICD firing. At that time she was found to be quite hyperthyroid. - Past Medical History Cardiac Medical History: Reports: Hx Hypertension, Other - Patient did have cardiac arrest, which did require multiple defibrillations Pulmonary Medical History: Reports: None EENT Medical History: Reports: None Neurological Medical History: Reports: None Endocrine Medical History: Reports: Hx Hyperthyroidism Renal/ Medical History: Reports: None GI Medical History: Reports: None Musculoskeltal Medical History: Reports None Skin Medical History: Reports None Psychiatric Medical History: Reports: Hx Depression, Hx Post Traumatic Stress Disorder Past Surgical History: Reports: Hx Cardiac Surgery - AICD, Hx Section - x1 - Immunizations Hx Diphtheria, Pertussis, Tetanus Vaccination: Yes - 2010 Review of Systems - Review of Systems Constitutional: No symptoms reported EENT: No symptoms reported Cardiovascular: See HPI Respiratory: No symptoms reported Gastrointestinal: No symptoms reported Genitourinary: No symptoms reported Musculoskeletal: No symptoms reported Skin: No symptoms reported Hematologic/Lymphatic: No symptoms reported Neurological/Psychological: No symptoms reported Physical Exam - Vital signs Vitals: Temp Pulse Resp BP Pulse Ox 99.1 F 75 18 135/89 H 100 06/15/17 17:33 06/15/17 17:33 06/15/17 17:33 06/15/17 17:33 06/15/17 17:33 Interpretation: Normal - General General appearance: Appears well, Alert In distress: None - HEENT Head: Normocephalic, Atraumatic Eyes: Normal Pupils: PERRL Neck: Normal - Respiratory Respiratory status: No respiratory distress Breath sounds: Normal Chest palpation: Tender - Patient is very tender to palpate the right anterior chest wall. This does reproduce her chief complaint. - Cardiovascular Rhythm: Regular Heart sounds: Normal auscultation Murmur: No - Abdominal Inspection: Obese Bowel sounds: Normal Tenderness: Nontender - Back Back: Normal - Extremities General upper extremity: Normal inspection General lower extremity: Normal inspection - Neurological Neuro grossly intact: Yes - Psychological Associated symptoms: Normal affect, Normal mood - Skin Skin Temperature: Warm Skin Moisture: Dry Skin Color: Normal Course - Vital Signs Vital signs: Temp Pulse Resp BP Pulse Ox 97.9 F 54 L 18 132/90 H 99 06/15/17 19:30 06/15/17 19:30 06/15/17 17:33 06/15/17 19:30 06/15/17 19:30 - Laboratory Result Diagrams: 06/15/17 18:13 06/15/17 18:13 Laboratory results interpreted by me: 06/15/17 18:13 Hgb 10.7 L Hct 33.3 L RDW 18.0 H - EKG Interpretation by Ut EKG shows normal: Sinus rhythm, [place], Intervals, QRS Complexes, ST-T Waves Rate: Normal - 77 Rhythm: NSR Discharge - Discharge Clinical Impression: Chest wall pain Condition: Stable Disposition: HOME, SELF-CARE Additional Instructions: Chest Wall Pain Your chest pain has been diagnosed as coming from the chest wall. This is often caused by straining the muscles or joints in the chest during physical activity, direct trauma, coughing, or vigorous vomiting. Persons with arthritis are especially prone to this type of pain, due to inflammation of the cartilage joints near the breast bone. Occasionally, no cause can be found. Rest from strenuous physical activity. This kind of chest pain is usually made worse by movement of the chest. Depending on the symptoms, we may prescribe medicine for pain, muscle relaxation, and antiinflammatory effects. If the pain is new, and seems to be due to muscle strain, cold packs can help. Otherwise, apply gentle warmth to the painful area for 15 minutes every hour or two. You should contact the doctor immediately if things change. Further evaluation is needed if you develop a fever or cough, if the nature of the pain changes, or if you become short of breath. //////////////////////////////////////////////////////////////////////////////// /////////////////////////////////////////////////////////// Take Tylenol for your pain if needed. Try moist heat to the painful chest wall area. Follow-up with your doctor this week if not improving. RETURN TO THE EMERGENCY ROOM IF ANY NEW OR WORSENING SYMPTOMS.
[2017-06-15 18:53] LABS: ABSOLUTE LYMPHOCYTES (AUTO) 1.8 10^3/uL (0.5-4.7); ABSOLUTE MONOCYTES (AUTO) 0.5 10^3/uL (0.1-1.4); ABSOLUTE NEUT (AUTO) 2.4 10^3/uL (1.7-8.2); BASOPHILS % (AUTO) 0.4 % (0-2); HEMATOCRIT 33.3 % (36.0-47.0); HEMOGLOBIN 10.7 g/dL (12.0-15.5); HGB HCT DIFFERENCE -1.2; LYMPHOCYTES % (AUTO) 37.3 % (13-45); MEAN CORPUSCULAR HEMOGLOBIN 27.1 pg (27.0-33.4); MEAN CORPUSCULAR HGB CONC 32.2 g/dL (32.0-36.0); MEAN CORPUSCULAR VOLUME 84 fl (80-97); MONOCYTES % (AUTO) 10.3 % (3-13); RED BLOOD COUNT 3.95 10^6/uL (3.72-5.28); WHITE BLOOD COUNT 4.8 10^3/uL (4.0-10.5)
[2017-06-15 19:03] LABS: FREE T3 3.6 pg/mL (2.77-5.27)
[2017-06-15 19:31] VITALS: BP 132/90
--- NOTE | 2017-06-15 23:05 | EKG REPORT ---
SEVERITY:- NORMAL ECG - SINUS RHYTHM : Confirmed by: Tisha Solorzano 15-Jun-2017 23:04:27
== END 2017-06-15 19:31 | disposition home or self-care (01) ==
LOC: ER 17:11
DX: R07.89 Other chest pain (principal); E03.9 Hypothyroidism, unspecified
CPT/HCPCS: 36415; 80053; 82550; 84439; 84481; 84484; 84703; 85025; 93005; 93010; 99285

== ENCOUNTER → 2017-06-18 | Outpatient (CLI) | payer MEDICAID ==
--- NOTE | 2017-06-18 09:57 | RADIOLOGY REPORT (SQ) ---
EXAM DESCRIPTION: CHEST PA/LAT COMPLETED DATE/TIME: 06/18/2017 9:36 am REASON FOR STUDY: HEMOPTYSIS COMPARISON: 03/10/2017. EXAM PARAMETERS: NUMBER OF VIEWS: two views TECHNIQUE: Digital Frontal and Lateral radiographic views of the chest acquired. RADIATION DOSE: NA LIMITATIONS: none FINDINGS: LUNGS AND PLEURA: No opacities, masses or pneumothorax. No pleural effusion. MEDIASTINUM AND HILAR STRUCTURES: No masses or contour abnormalities. HEART AND VASCULAR STRUCTURES: Heart normal size. No evidence for failure. BONES: No acute findings. HARDWARE: Defibrillator. OTHER: No other significant finding. IMPRESSION: NO SIGNIFICANT RADIOGRAPHIC FINDING IN THE CHEST. TECHNICAL DOCUMENTATION: JOB ID: [id number] [employer]- All Rights Reserved
== END ==
LOC: RAD 09:09
PROVIDERS: ATTEND Student in an Organized Health Care Education/Training Program
DX: R04.2 Hemoptysis (principal)
CPT/HCPCS: 71020

== ENCOUNTER 2017-10-09 14:31 | Emergency (ER) | payer MEDICAID ==
[2017-10-09] MEDS ORDERED: ASPIRIN 81 MG TABLET, CHEWABLE PO ONE (15:03)
--- NOTE | 2017-10-09 15:05 | ER Document Report ---
ED Medical Screen (RME) - General Chief Complaint: Abdominal Pain Stated Complaint: BACK PAIN, ABDOMINAL PAIN Time Seen by Provider: 10/09/17 14:52 Notes: RME DISCLOSURE I have seen this patient as part of a Rapid Medical Evaluation and, if applicable, placed any initially appropriate orders. The patient will be seen and fully evaluated, including a full history and physical exam, by a provider ( in Main ED or Fast Track) when a room becomes available. 37-year-old female PMH cardiac arrest 2010 here with complaints of right-sided chest pain radiating up to the right shoulder and down the right arm as well as her right upper back that started earlier this morning. The symptoms are worse with exertion but not with breathing. She also complains of some lower abdominal cramping that is similar to her menstrual cramps. She does not know why she sustained cardiac arrest but remembers that the doctors told her "I do not have any blockages". TRAVEL OUTSIDE OF THE [place] IN LAST 30 DAYS: No - Related Data Allergies/Adverse Reactions: No Known Allergies Allergy (Verified 10/09/17 14:37) Past Medical History - Social History Chew tobacco use (# tins/day): No Frequency of alcohol use: None Drug Abuse: None - Past Medical History Cardiac Medical History: Reports: Hx Coronary Artery Disease - It is unknown if the patient has coronary artery disease, Hx Heart Attack - cardiac arrest, Hx Hypertension Pulmonary Medical History: Denies: Hx Tuberculosis Endocrine Medical History: Reports: Hx Hyperthyroidism Renal/ Medical History: Denies: Hx Peritoneal Dialysis Psychiatric Medical History: Reports: Hx Depression, Hx Post Traumatic Stress Disorder Past Surgical History: Reports: Hx Cardiac Surgery - AICD, Hx Section - x1 - Immunizations Hx Diphtheria, Pertussis, Tetanus Vaccination: Yes - 2010 Physical Exam - Vital signs Vitals: Temp Pulse Resp BP Pulse Ox 97.7 F 68 14 136/76 H 100 10/09/17 14:45 10/09/17 14:45 10/09/17 14:45 10/09/17 14:45 10/09/17 14:45 Course - Vital Signs Vital signs: Temp Pulse Resp BP Pulse Ox 97.7 F 68 14 136/76 H 100 10/09/17 14:45 10/09/17 14:45 10/09/17 14:45 10/09/17 14:45 10/09/17 14:45
[2017-10-09 15:35] LABS: ANION GAP 11 (5-19); BLOOD UREA NITROGEN 10 mg/dL (7-20); CALCIUM 9.9 mg/dL (8.4-10.2); CARBON DIOXIDE 27 mmol/L (22-30); CHLORIDE 105 mmol/L (98-107); GLUCOSE 100 mg/dL (75-110); POTASSIUM 4.3 mmol/L (3.6-5.0); SODIUM 142.7 mmol/L (137-145)
--- NOTE | 2017-10-09 15:39 | ER Document Report ---
ED Cardiac - General Chief Complaint: Abdominal Pain Stated Complaint: BACK PAIN, ABDOMINAL PAIN Time Seen by Provider: 10/09/17 14:52 Mode of Arrival: Ambulatory Information source: Patient TRAVEL OUTSIDE OF THE [place] IN LAST 30 DAYS: No - HPI Patient complains to provider of: Chest pain Notes: Patient is here with complaints of right-sided chest pain. She states that the chest pain is been present since 9 AM this morning. Located in her right chest and right upper back and radiates down the right arm. Seems to be somewhat worse when she moves the right arm as well as when she lays back. She denies any numbness, tingling, weakness. The pain is not exertional. She denies any shortness of breath. She denies any recent long trips or surgeries, leg pain or leg swelling, hormone use, smoking, history of DVT or PE, or cancer history. She does have a prior history of an arrhythmia which led to a cardiac arrest, but states that she has had a cardiac cath which showed no coronary artery blockages. She does have a history of hypertension, PTSD, anxiety, Graves' disease. She denies any fever or cough. She also reports that yesterday she was having some lower abdominal cramping that felt like menstrual cramps, but denies having any pain in her abdomen at this time. She denies any nausea, vomiting, diarrhea. She denies any dysuria or hematuria. She denies any vaginal bleeding or discharge. No rash. Patient has no other complaints at this time. - Related Data Allergies/Adverse Reactions: No Known Allergies Allergy (Verified 10/09/17 14:37) Past Medical History - Social History Smoking Status: Never Smoker Chew tobacco use (# tins/day): No Frequency of alcohol use: None Drug Abuse: None Family History: Hypertension Patient has suicidal ideation: No Patient has homicidal ideation: No - Past Medical History Cardiac Medical History: Reports: Hx Coronary Artery Disease - It is unknown if the patient has coronary artery disease, Hx Heart Attack - cardiac arrest, Hx Hypertension Pulmonary Medical History: Denies: Hx Tuberculosis Endocrine Medical History: Reports: Hx Hyperthyroidism Renal/ Medical History: Denies: Hx Peritoneal Dialysis Psychiatric Medical History: Reports: Hx Depression, Hx Post Traumatic Stress Disorder Past Surgical History: Reports: Hx Cardiac Surgery - AICD, Hx Section - x1 - Immunizations Hx Diphtheria, Pertussis, Tetanus Vaccination: Yes - 2010 Review of Systems - Review of Systems -: Yes All other systems reviewed and negative Physical Exam - Vital signs Vitals: Temp Pulse Resp BP Pulse Ox 97.7 F 68 14 136/76 H 100 10/09/17 14:45 10/09/17 14:45 10/09/17 14:45 10/09/17 14:45 10/09/17 14:45 - Notes Notes: GENERAL: alert, cooperative, nontoxic, no distress. HEAD: normocephalic, atraumatic EYES: conjunctiva pink without discharge, no external redness or swelling. EARS: no external swelling, no external redness NOSE: atraumatic, no external swelling MOUTH/THROAT: mucous membranes moist and pink, posterior pharynx without erythema, swelling, exudate. No trismus or drooling. NECK: soft, supple, full range of motion, no meningismus. CHEST: no distress, lungs clear and equal throughout. No wheezing, rales, rhonchi. CARDIAC: regular rate and rhythm, no murmur, normal capillary refill, normal pulses. No peripheral edema noted. ABDOMEN: Soft, nontender. No rebound tenderness or guarding. No obvious mass. Obese abdomen. BACK: full range of motion, no CVA tenderness. Mild tenderness to palpation of the right posterior scapular area. EXTREMITIES: full range of motion of all extremities. No redness, no swelling. NEURO: alert and oriented x 3, no focal deficits, full range of motion of all extremities. PYSCH: appropriate mood, affect. Patient is cooperative. SKIN: pink, warm, dry, no rash. Course - Re-evaluation Re-evalutation: 10/09/17 15:40 Heart score of 1. Scores 0-3: 0.9-1.7% risk of adverse cardiac event. In the HEART Score study, these patients were discharged (0.99% in the retrospective study, 1.7% in the prospective study) 10/09/17 17:02 Patient is here with right arm/chest/back pain that started at 9:00 this morning. The pain has been constant since it started. Seems to be somewhat worse when she moves her arm. It is also reproducible with palpation of her back in the scapular area. No rash. Lungs are clear. She denies any shortness of breath associated with it. EKG is unremarkable for acute findings. There is no change from previous EKGs. Chest x-ray shows no acute abnormalities. Troponin is negative. Patient's heart score is 1, making her low risk for adverse cardiac event. Patient has no pulmonary embolism risk factors and is PERC rule negative for PE, therefore no further provocative testing is required for PE. Pain is very atypical for ACS. Seems most likely be musculoskeletal in nature since that is reproducible with movement as well as palpation. No sign or risk of aortic dissection. No pneumothorax on x-ray. patient tells me that she has had a prior cardiac arrest, but this was secondary to arrhythmia. She has an defibrillator/pacemaker in place. She tells me that she has had a heart cath showing no coronary artery occlusions. Her only ACS risk factor is hypertension and obesity. This point the patient will be discharged home with instructions to follow-up with her primary care doctor at the next available appointment for reevaluation. She is instructed to follow-up sooner for increasing pain, fever, difficulty breathing, abdominal pain, persistent vomiting, or for any further concerns. The patient is noted to have elevated blood pressure during today's emergency department visit. The patient was informed of this finding. The patient was instructed that this may be related to pre-hypertension and requires further evaluation with a primary care provider. The patient has no hypertensive symptoms at this time. The patient's emergency department workup and current diagnosis were explained to the patient and or family. Follow-up instructions were provided. Medications if prescribed were discussed. Instructions for when to return to the emergency department including specific worrisome symptoms were discussed with the patient and/or family. - Vital Signs Vital signs: Temp Pulse Resp BP Pulse Ox 97.7 F 68 14 136/76 H 100 10/09/17 14:45 10/09/17 14:45 10/09/17 14:45 10/09/17 14:45 10/09/17 14:45 - Laboratory Result Diagrams: 10/09/17 15:09 10/09/17 15:09 Laboratory results interpreted by me: 10/09/17 15:09 WBC 3.6 L Hgb 10.2 L Hct 32.3 L MCV 79 L MCH 25.1 L MCHC 31.7 L RDW 17.2 H Absolute Neutrophils 1.6 L - Diagnostic Test Radiology reviewed: Image reviewed, Reports reviewed - Negative chest x-ray - EKG Interpretation by Vt EKG shows normal: Sinus rhythm, [place], Intervals, QRS Complexes, ST-T Waves Rate: Normal When compared to previous EKG there are: No significant change - 06/15/17 Discharge - Discharge Clinical Impression: Chest pain Qualifiers: Chest pain type: unspecified Qualified Code(s): R07.9 - Chest pain, unspecified Back pain Qualifiers: Back pain location: thoracic back pain Chronicity: acute Back pain laterality: right Qualified Code(s): M54.6 - Pain in thoracic spine Condition: Stable Disposition: HOME, SELF-CARE Instructions: Chest Pain of Unclear Cause ([facility]), Upper Back Strain ([facility]) Additional Instructions: Continue to take Tylenol as needed for pain. Follow-up with your doctor at the next available appointment for recheck. Return to the emergency department for worsening pain, high fever, difficulty breathing, persistent vomiting, weakness in the right arm, or for any further concerns. Your blood pressure was elevated during today's visit. Have this rechecked with your doctor. Forms: Elevated Blood Pressure, Smoking Cessation Education Referrals: CHUCKY CORCORAN, [Primary Care Provider] - Follow up as needed
[2017-10-09 15:44] LABS: ABSOLUTE LYMPHOCYTES (AUTO) 1.6 10^3/uL (0.5-4.7); ABSOLUTE MONOCYTES (AUTO) 0.4 10^3/uL (0.1-1.4); ABSOLUTE NEUT (AUTO) 1.6 10^3/uL (1.7-8.2); BASOPHILS % (AUTO) 0.4 % (0-2); HEMATOCRIT 32.3 % (36.0-47.0); HEMOGLOBIN 10.2 g/dL (12.0-15.5); MEAN CORPUSCULAR HEMOGLOBIN 25.1 pg (27.0-33.4); MEAN CORPUSCULAR HGB CONC 31.7 g/dL (32.0-36.0); MEAN CORPUSCULAR VOLUME 79 fl (80-97); MONOCYTES % (AUTO) 10.6 % (3-13); PLATELET COUNT 336 10^3/uL (150-450); RED BLOOD COUNT 4.08 10^6/uL (3.72-5.28); RED CELL DISTRIBUTION WIDTH 17.2 % (11.5-14.0); TOTAL CELLS COUNTED % (AUTO) 100 %; WHITE BLOOD COUNT 3.6 10^3/uL (4.0-10.5)
--- NOTE | 2017-10-09 15:50 | RADIOLOGY REPORT (SQ) ---
EXAM DESCRIPTION: CHEST 2 VIEWS COMPLETED DATE/TIME: 10/09/2017 3:41 pm REASON FOR STUDY: R shoulder and arm pain w exertion COMPARISON: 06/18/2017 EXAM PARAMETERS: NUMBER OF VIEWS: two views TECHNIQUE: Digital Frontal and Lateral radiographic views of the chest acquired. RADIATION DOSE: NA LIMITATIONS: none FINDINGS: LUNGS AND PLEURA: No opacities, masses or pneumothorax. No pleural effusion. MEDIASTINUM AND HILAR STRUCTURES: No masses or contour abnormalities. HEART AND VASCULAR STRUCTURES: Stable heart size. BONES: No acute findings. HARDWARE: Stable position of defibrillator. OTHER: No other significant finding. IMPRESSION: NO ACUTE RADIOGRAPHIC FINDING IN THE CHEST. TECHNICAL DOCUMENTATION: JOB ID: [id number] [employer]- All Rights Reserved Reading location - IP/workstation name: [email or web address]
[2017-10-09 16:28] LABS: PHOSPHORUS 3.3 mg/dL (2.5-4.5)
[2017-10-09 17:18] VITALS: BP 120/79
[2017-10-09 17:50] LABS: APPEARANCE,URINE SLIGHTLY-CLOUDY; BILIRUBIN,URINE NEGATIVE (NEGATIVE); COLOR,URINE YELLOW; GLUCOSE, URINE NEGATIVE (NEGATIVE); KETONES,URINE NEGATIVE (NEGATIVE); LEUKOCYTE ESTERASE,URINE NEGATIVE (NEGATIVE); NITRITE,URINE NEGATIVE (NEGATIVE); PROTEIN,URINE NEGATIVE (NEGATIVE); URINE SPECIFIC GRAVITY 1.017; UROBILINOGEN,URINE NEGATIVE mg/dL (<2.0)
--- NOTE | 2017-10-09 19:02 | EKG REPORT ---
SEVERITY:- BORDERLINE ECG - SINUS RHYTHM BORDERLINE T ABNORMALITIES, ANT-LAT LEADS : Confirmed by: Tisha Solorzano 09-Oct-2017 19:01:53
== END 2017-10-09 17:18 | disposition home or self-care (01) ==
LOC: ER 14:31
DX: R07.9 Chest pain, unspecified (principal); M54.6 Pain in thoracic spine; M79.601 Pain in right arm; R10.30 Lower abdominal pain, unspecified; I25.2 Old myocardial infarction; I10 Essential (primary) hypertension
CPT/HCPCS: 36415; 71046; 80048; 81001; 83735; 84100; 84484; 85025; 93005; 93010; 99284

== ENCOUNTER 2018-01-19 09:40 | Emergency (ER) | payer MEDICAID ==
--- NOTE | 2018-01-19 10:05 | ER Document Report ---
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 IN LAST 30 DAYS: No - HPI Patient complains to provider of: Right side pain Onset: Yesterday Onset/Duration: Sudden, Persistent Quality of pain: Achy, Sharp Severity: Moderate Pain Level: 3 Exacerbated by: Denies Relieved by: Denies Notes: 01/19/18 10:02 Patient is a 38-year-old female presenting to the emergency room complaining of right side pain which is stabbing in nature, occurring for the past 2 days, no aggravating or alleviating symptoms, no cough, cold or congestion, no shortness of breath, no nausea, vomiting or diarrhea, pain is in the right lower chest/ right upper quadrant, patient has significant medical history including cardiac arrest in 2018 with resultant defibrillator placed, currently taking medication for high blood pressure - Related Data Allergies/Adverse Reactions: No Known Allergies Allergy (Verified 01/19/18 09:41) Past Medical History - Social History Chew tobacco use (# tins/day): No Frequency of alcohol use: None Drug Abuse: None - Past Medical History Cardiac Medical History: Reports: Hx Coronary Artery Disease - It is unknown if the patient has coronary artery disease, Hx Heart Attack - cardiac arrest, Hx Hypertension Pulmonary Medical History: Denies: Hx Tuberculosis Endocrine Medical History: Reports: Hx Hyperthyroidism Renal/ Medical History: Denies: Hx Peritoneal Dialysis GI Medical History: Reports: Hx Gastroesophageal Reflux Disease Psychiatric Medical History: Reports: Hx Depression, Hx Post Traumatic Stress Disorder Past Surgical History: Reports: Hx Cardiac Surgery - AICD, Hx Section - x1 - Immunizations Hx Diphtheria, Pertussis, Tetanus Vaccination: Yes - 2010 Physical Exam - Vital signs Vitals: Temp Pulse Resp BP Pulse Ox 98.4 F 81 14 141/74 H 100 01/19/18 09:46 01/19/18 09:46 01/19/18 09:46 01/19/18 09:46 01/19/18 09:46 Course - Vital Signs Vital signs: Temp Pulse Resp BP Pulse Ox 98.4 F 81 14 141/74 H 100 01/19/18 09:46 01/19/18 09:46 01/19/18 09:46 01/19/18 09:46 01/19/18 09:46 Doctor's Discharge - Discharge Referrals: CHUCKY CORCORAN, [Primary Care Provider] - Follow up as needed
[2018-01-19 10:58] LABS: ABSOLUTE LYMPHOCYTES (AUTO) 1.2 10^3/uL (0.5-4.7); ABSOLUTE MONOCYTES (AUTO) 0.3 10^3/uL (0.1-1.4); ABSOLUTE NEUT (AUTO) 2.1 10^3/uL (1.7-8.2); BASOPHILS % (AUTO) 0.6 % (0-2); EOSINOPHILS % (AUTO) 1.1 % (0-6); HEMATOCRIT 31.8 % (36.0-47.0); HEMOGLOBIN 9.9 g/dL (12.0-15.5); LYMPHOCYTES % (AUTO) 33.5 % (13-45); MEAN CORPUSCULAR HGB CONC 31.2 g/dL (32.0-36.0); MEAN CORPUSCULAR VOLUME 77 fl (80-97); MONOCYTES % (AUTO) 8.9 % (3-13); PLATELET COUNT 250 10^3/uL (150-450); RED BLOOD COUNT 4.13 10^6/uL (3.72-5.28); RED CELL DISTRIBUTION WIDTH 20.2 % (11.5-14.0); SEGMENTED NEUTROPHILS % (AUTO) 55.9 % (42-78); TOTAL CELLS COUNTED % (AUTO) 100 %; WHITE BLOOD COUNT 3.7 10^3/uL (4.0-10.5)
[2018-01-19 11:27] LABS: ALANINE AMINOTRANSFERASE 11 U/L (9-52); ALBUMIN 4.3 g/dL (3.5-5.0); ALKALINE PHOSPHATASE 57 U/L (38-126); ANION GAP 14 (5-19); ASPARTATE AMINO TRANSFERASE 21 U/L (14-36); BILIRUBIN,DIRECT 0.3 mg/dL (0.0-0.4); BILIRUBIN,TOTAL 0.4 mg/dL (0.2-1.3); BLOOD UREA NITROGEN 13 mg/dL (7-20); CALCIUM 9.7 mg/dL (8.4-10.2); CARBON DIOXIDE 26 mmol/L (22-30); CHLORIDE 104 mmol/L (98-107); GLUCOSE 92 mg/dL (75-110); LIPASE 326.7 U/L (23-300); POTASSIUM 4.2 mmol/L (3.6-5.0); TOTAL PROTEIN 8.4 g/dL (6.3-8.2)
[2018-01-19 11:39] LABS: NT PRO BNP 31 pg/mL (<125); TROPONIN I < 0.012 ng/mL
--- NOTE | 2018-01-19 11:57 | RADIOLOGY REPORT (SQ) ---
EXAM DESCRIPTION: CHEST 2 VIEWS COMPLETED DATE/TIME: 01/19/2018 11:27 am REASON FOR STUDY: right side pain COMPARISON: TWO-VIEW CHEST 10/09/2017 EXAM PARAMETERS: NUMBER OF VIEWS: two views TECHNIQUE: Digital Frontal and Lateral radiographic views of the chest acquired. RADIATION DOSE: NA LIMITATIONS: none FINDINGS: LUNGS AND PLEURA: No opacities, masses or pneumothorax. No pleural effusion. MEDIASTINUM AND HILAR STRUCTURES: No masses or contour abnormalities. HEART AND VASCULAR STRUCTURES: Heart normal size. No evidence for failure. BONES: No acute findings. HARDWARE: Left-sided pacemaker unchanged OTHER: No other significant finding. IMPRESSION: NO ACUTE RADIOGRAPHIC FINDING IN THE CHEST. TECHNICAL DOCUMENTATION: JOB ID: [id number] [employer]- All Rights Reserved Reading location - IP/workstation name: [email or web address]
--- NOTE | 2018-01-19 12:23 | ER Document Report ---
ED General - General Chief Complaint: Abdominal Pain Stated Complaint: ABDOMINAL PAIN Time Seen by Provider: 01/19/18 09:50 Mode of Arrival: Ambulatory Information source: Patient Notes: Patient presents complaining of right-sided abdominal pain off and on for the past 3 days. Patient states the pain seemed to be worse today which prompted her visit. Patient denies any nausea vomiting or diarrhea. Patient denies any cough or urinary symptoms. TRAVEL OUTSIDE OF THE [place] 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 - Social History Smoking Status: Never Smoker Chew tobacco use (# tins/day): No Frequency of alcohol use: None Drug Abuse: None Occupation: None Lives with: Family Family History: Hypertension Patient has suicidal ideation: No Patient has homicidal ideation: No - Past Medical History Cardiac Medical History: Reports: Hx Coronary Artery Disease - It is unknown if the patient has coronary artery disease, Hx Heart Attack - cardiac arrest, Hx Hypertension Pulmonary Medical History: Denies: Hx Tuberculosis Endocrine Medical History: Reports: Hx Hyperthyroidism Renal/ Medical History: Denies: Hx Peritoneal Dialysis GI Medical History: Reports: Hx Gastroesophageal Reflux Disease Psychiatric Medical History: Reports: Hx Depression, Hx Post Traumatic Stress Disorder Past Surgical History: Reports: Hx Cardiac Surgery - AICD, Hx Section - x1 - Immunizations Hx Diphtheria, Pertussis, Tetanus Vaccination: Yes - 2010 Review of Systems - Review of Systems Constitutional: No symptoms reported. denies: Fever, Recent illness EENT: No symptoms reported Cardiovascular: No symptoms reported. denies: Chest pain Respiratory: No symptoms reported. denies: Cough, Short of breath Gastrointestinal: Abdominal pain. denies: Diarrhea, Nausea, Vomiting Genitourinary: No symptoms reported. denies: Dysuria, Flank pain Female Genitourinary: No symptoms reported Musculoskeletal: No symptoms reported. denies: Back pain Skin: No symptoms reported Hematologic/Lymphatic: No symptoms reported Neurological/Psychological: No symptoms reported Physical Exam - Vital signs Vitals: Temp Pulse Resp BP Pulse Ox 98.4 F 81 14 141/74 H 100 01/19/18 09:46 01/19/18 09:46 01/19/18 09:46 01/19/18 09:46 01/19/18 09:46 - General General appearance: Appears well, Alert In distress: None - HEENT Head: Normocephalic, Atraumatic Eyes: Normal Conjunctiva: Normal Sinus: Normal Nasal: Normal Mouth/Lips: Normal Mucous membranes: Normal Pharynx: Normal Neck: Normal, Supple. No: Lymphadenopathy - Respiratory Respiratory status: No respiratory distress Chest status: Nontender Breath sounds: Normal. No: Rales, Rhonchi, Stridor, Wheezing Chest palpation: Normal - Cardiovascular Rhythm: Regular Heart sounds: S1 appreciated, S2 appreciated Murmur: No - Abdominal Inspection: Morbidly Obese Distension: No distension Bowel sounds: Normal Tenderness: Tender - RUQ Organomegaly: No organomegaly - Back Back: Normal, Nontender. No: CVA tenderness - Extremities General upper extremity: Normal inspection, Normal strength General lower extremity: Normal inspection, Normal strength - Neurological Neuro grossly intact: Yes Cognition: Normal [place] Coma Scale Eye Opening: Spontaneous [place] Coma Scale Verbal: Oriented [place] Coma Scale Motor: Obeys Commands [place]uncion Coma Scale Total: 15 - Psychological Associated symptoms: Normal affect, Normal mood - Skin Skin Temperature: Warm Skin Moisture: Dry Skin Color: Normal Course - Re-evaluation Re-evalutation: 01/19/18 16:20 Patient presents with abdominal pain without signs of peritonitis or other life- threatening or serious etiology. Patient appears stable for discharge and has been instructed to return immediately if the symptoms worsen in any way, or in 8 -12 hours if not improved for reevaluation. The patient has been instructed to return if the symptoms worsen or change in any way. - Vital Signs Vital signs: Temp Pulse Resp BP Pulse Ox 98.0 F 81 15 103/72 100 01/19/18 15:01 01/19/18 09:46 01/19/18 16:01 01/19/18 16:01 01/19/18 16:01 - Laboratory Result Diagrams: 01/19/18 10:40 01/19/18 10:40 Laboratory results interpreted by me: 01/19/18 01/19/18 10:40 10:40 WBC 3.7 L Hgb 9.9 L Hct 31.8 L MCV 77 L MCH 24.0 L MCHC 31.2 L RDW 20.2 H Total Protein 8.4 H Lipase 326.7 H 01/19/18 16:20 Labs- Entire Visit 01/19/18 01/19/18 01/19/18 10:40 10:40 10:40 WBC 3.7 L RBC 4.13 Hgb 9.9 L Hct 31.8 L MCV 77 L MCH 24.0 L MCHC 31.2 L RDW 20.2 H Plt Count 250 Seg Neutrophils % 55.9 Lymphocytes % 33.5 Monocytes % 8.9 Eosinophils % 1.1 Basophils % 0.6 Absolute Neutrophils 2.1 Absolute Lymphocytes 1.2 Absolute Monocytes 0.3 Absolute Eosinophils 0.0 Absolute Basophils 0.0 Sodium 144.0 Potassium 4.2 Chloride 104 Carbon Dioxide 26 Anion Gap 14 BUN 13 Creatinine 0.88 Est GFR ( Amer) > 60 Est GFR (Non-Af Amer) > 60 Glucose 92 Calcium 9.7 Total Bilirubin 0.4 Direct Bilirubin 0.3 Neonat Total Bilirubin Not Reportable Neonat Direct Bilirubin Not Reportable Neonat Indirect Bili Not Reportable AST 21 ALT 11 Alkaline Phosphatase 57 Troponin I < 0.012 NT-Pro-B Natriuret Pep 31 Total Protein 8.4 H Albumin 4.3 Lipase 326.7 H 01/19/18 14:40 WBC RBC Hgb Hct MCV MCH MCHC RDW Plt Count Seg Neutrophils % Lymphocytes % Monocytes % Eosinophils % Basophils % Absolute Neutrophils Absolute Lymphocytes Absolute Monocytes Absolute Eosinophils Absolute Basophils Sodium Potassium Chloride Carbon Dioxide Anion Gap BUN Creatinine Est GFR ( Amer) Est GFR (Non-Af Amer) Glucose Calcium Total Bilirubin Direct Bilirubin Neonat Total Bilirubin Neonat Direct Bilirubin Neonat Indirect Bili AST ALT Alkaline Phosphatase Troponin I < 0.012 NT-Pro-B Natriuret Pep Total Protein Albumin Lipase - Diagnostic Test Radiology reviewed: Reports reviewed Discharge - Discharge Clinical Impression: Gall stones Abdominal pain Qualifiers: Abdominal location: right upper quadrant Qualified Code(s): R10.11 - Right upper quadrant pain Condition: Stable Disposition: HOME, SELF-CARE Instructions: Abdominal Pain ([facility]), Gallbladder Disease ([facility]) Additional Instructions: Return immediately for any new or worsening symptoms Followup with your primary care provider, call tomorrow to make a followup appointment Follow-up with a general surgeon regarding gallstones and abdominal pain. Eat a low-fat diet Referrals: CHUCKY CORCORAN, [Primary Care Provider] - Follow up as needed [facility] [Provider Group] - Follow up as needed
--- NOTE | 2018-01-19 14:11 | RADIOLOGY REPORT (SQ) ---
EXAM DESCRIPTION: U/S ABDOMEN LIMITED W/O DOP COMPLETED DATE/TIME: 01/19/2018 2:00 pm REASON FOR STUDY: RUQ pain COMPARISON: None. TECHNIQUE: Dynamic and static grayscale images acquired of the right upper quadrant and recorded on PACS. Additional selected color Doppler and spectral images recorded. LIMITATIONS: Study limited due to acoustical interference from fat or from air in the bowel. FINDINGS: PANCREAS: Parts of the pancreas poorly seen secondary to acoustical interference from fat or from air in the bowel. LIVER: Echotexture is coarse with increased echogenicity consistent with fatty infiltration. No mass es. LIVER VASCULATURE: Normal directional flow of the main portal vein and hepatic veins. GALLBLADDER: No stones. Normal wall thickness. No pericholecystic fluid. ULTRASOUND-DETECTED SWANSON'S SIGN: Negative. INTRAHEPATIC DUCTS AND COMMON DUCT: CBD and intrahepatic ducts normal caliber. No filling defects. INFERIOR VENA CAVA: Normal flow. AORTA: No aneurysm. RIGHT KIDNEY: Normal size. Normal echogenicity. No solid or suspicious masses. No hydronephros is. No calcifications. PERITONEAL CAVITY AND RIGHT PLEURAL SPACE: No ascites or effusions. OTHER: No other significant finding. IMPRESSION: GALLSTONES. FATTY LIVER. PANCREAS PARTIALLY OBSCURED. NO OTHER SIGNIFICANT FINDINGS. TECHNICAL DOCUMENTATION: JOB ID: [id number] [employer]- All Rights Reserved Reading location - IP/workstation name: [email or web address]
[2018-01-19 16:39] VITALS: BP 103/72
--- NOTE | 2018-01-19 21:55 | EKG REPORT ---
SEVERITY:- ABNORMAL ECG - ATRIAL FIBRILLATION : Confirmed by: Tisha Solorzano 19-Jan-2018 21:54:03
== END 2018-01-19 16:40 | disposition home or self-care (01) ==
LOC: ER 09:40
DX: K80.80 Other cholelithiasis without obstruction (principal); R10.11 Right upper quadrant pain; I25.10 Atherosclerotic heart disease of native coronary artery without angina pectoris; I10 Essential (primary) hypertension; I25.2 Old myocardial infarction; Z95.810 Presence of automatic (implantable) cardiac defibrillator
CPT/HCPCS: 36415; 71046; 76705; 80053; 83690; 83880; 84484; 85025; 93005; 93010; 99285

== ENCOUNTER 2018-05-28 11:26 | Emergency (ER) | payer MEDICAID ==
--- NOTE | 2018-05-28 12:38 | ER Document Report ---
ED Medical Screen (RME) - General Chief Complaint: Dizziness Stated Complaint: LIGHT HEADED,RIB PAIN Time Seen by Provider: 05/28/18 12:36 Notes: Patient says she is having some chest pains and feeling lightheaded and dizzy. She woke up at about 4 AM this morning which is not unusual for her. She was having pain to the right of center of her chest and going around into her right back. That pain comes and goes. Later in the morning, she went to the store and while there she felt faint. Did not ever lose consciousness. Denies nausea or vomiting. Denies difficulty breathing or shortness of breath. Says she has had some urinary frequency but no other symptoms of UTI. Has not had any fever. Patient has a history of a cardiac arrest about 8 years ago and she was in [facility] for a couple of weeks. No known cause for the cardiac arrest but she currently has a defibrillator. PMH: Hypertension, hypothyroid, anxiety, depression, and PTSD. TRAVEL OUTSIDE OF THE [place] IN LAST 30 DAYS: No - Related Data Allergies/Adverse Reactions: No Known Allergies Allergy (Verified 05/28/18 12:34) Past Medical History - Social History Chew tobacco use (# tins/day): No Frequency of alcohol use: None Drug Abuse: None - Past Medical History Cardiac Medical History: Reports: Hx Coronary Artery Disease - It is unknown if the patient has coronary artery disease, Hx Heart Attack - cardiac arrest, Hx Hypertension Pulmonary Medical History: Denies: Hx Tuberculosis Endocrine Medical History: Reports: Hx Hyperthyroidism Renal/ Medical History: Denies: Hx Peritoneal Dialysis GI Medical History: Reports: Hx Gastroesophageal Reflux Disease Psychiatric Medical History: Reports: Hx Depression, Hx Post Traumatic Stress Disorder Past Surgical History: Reports: Hx Cardiac Surgery - AICD, Hx Section - x1 - Immunizations Hx Diphtheria, Pertussis, Tetanus Vaccination: Yes - 2010 Physical Exam - Vital signs Vitals: Temp Pulse Resp BP Pulse Ox 98 F 76 20 126/84 H 99 05/28/18 11:38 05/28/18 11:38 05/28/18 11:38 05/28/18 11:38 05/28/18 11:38 Course - Vital Signs Vital signs: Temp Pulse Resp BP Pulse Ox 98 F 76 20 126/84 H 99 05/28/18 11:38 05/28/18 11:38 05/28/18 11:38 05/28/18 11:38 05/28/18 11:38 Doctor's Discharge - Discharge Referrals: CHUCKY CORCORAN DO [Primary Care Provider] - Follow up as needed
[2018-05-28 13:06] LABS: ABSOLUTE LYMPHOCYTES (AUTO) 1.8 10^3/uL (0.5-4.7); ABSOLUTE MONOCYTES (AUTO) 0.6 10^3/uL (0.1-1.4); ABSOLUTE NEUT (AUTO) 2.7 10^3/uL (1.7-8.2); BASOPHILS % (AUTO) 0.4 % (0-2); EOSINOPHILS % (AUTO) 0.7 % (0-6); HEMOGLOBIN 11.9 g/dL (12.0-15.5); LYMPHOCYTES % (AUTO) 34.9 % (13-45); MEAN CORPUSCULAR HEMOGLOBIN 27.3 pg (27.0-33.4); MEAN CORPUSCULAR HGB CONC 32.3 g/dL (32.0-36.0); MEAN CORPUSCULAR VOLUME 85 fl (80-97); MONOCYTES % (AUTO) 11.8 % (3-13); PLATELET COUNT 284 10^3/uL (150-450); RED BLOOD COUNT 4.38 10^6/uL (3.72-5.28); RED CELL DISTRIBUTION WIDTH 17.9 % (11.5-14.0); SEGMENTED NEUTROPHILS % (AUTO) 52.2 % (42-78); TOTAL CELLS COUNTED % (AUTO) 100 %; WHITE BLOOD COUNT 5.2 10^3/uL (4.0-10.5)
[2018-05-28 13:11] LABS: APPEARANCE,URINE CLEAR; BILIRUBIN,URINE NEGATIVE (NEGATIVE); COLOR,URINE COLORLESS; GLUCOSE, URINE NEGATIVE (NEGATIVE); KETONES,URINE NEGATIVE (NEGATIVE); LEUKOCYTE ESTERASE,URINE NEGATIVE (NEGATIVE); NITRITE,URINE NEGATIVE (NEGATIVE); PROTEIN,URINE NEGATIVE (NEGATIVE); URINE SPECIFIC GRAVITY 1.002; UROBILINOGEN,URINE NEGATIVE mg/dL (<2.0)
[2018-05-28 13:31] LABS: ALANINE AMINOTRANSFERASE 8 U/L (9-52); ALBUMIN 4.4 g/dL (3.5-5.0); ALKALINE PHOSPHATASE 63 U/L (38-126); ANION GAP 12 (5-19); ASPARTATE AMINO TRANSFERASE 17 U/L (14-36); BILIRUBIN,DIRECT 0.2 mg/dL (0.0-0.4); BILIRUBIN,TOTAL 0.4 mg/dL (0.2-1.3); BLOOD UREA NITROGEN 11 mg/dL (7-20); CALCIUM 9.8 mg/dL (8.4-10.2); CARBON DIOXIDE 25 mmol/L (22-30); CHLORIDE 106 mmol/L (98-107); GLUCOSE 58 mg/dL (75-110); LIPASE 271.8 U/L (23-300); POTASSIUM 4.2 mmol/L (3.6-5.0); SODIUM 142.5 mmol/L (137-145); TOTAL PROTEIN 8.1 g/dL (6.3-8.2)
--- NOTE | 2018-05-28 14:08 | ER Document Report ---
ED General - General Chief Complaint: Dizziness Stated Complaint: LIGHT HEADED,RIB PAIN Time Seen by Provider: 05/28/18 12:36 Notes: Patient is a 38-year-old female that presents to the emergency department for chief complaint of chest pain and lightheadedness. Patient states that her symptoms started this morning where she was feeling slightly lightheaded, she had a brief episode of sharp pain under her left breast, and then had another episode of sharp pain across her right chest, this lasted a few seconds, and were not better or worse with exertion or rest. She does report a history of having an AICD placed in 2010 for cardiac arrest, she has not had any cardiac issues since then, she reports her AICD has gone off twice since then, last time was over a year ago, but denies any history of CAD, or diabetes. She is a non-smoker. She currently is pain-free, when she did have the pain she rated it as a 4 out of 10 described as a sharp pain along the ribs. Denies any shortness of breath, nausea, vomiting, diaphoresis. Past Medical History: PTSD, hypothyroidism, history of cardiac arrest Past Surgical History: AICD placement Social History: Denies tobacco, alcohol or illicit drug use Family History: Reviewed and noncontributory for presenting illness Allergies: Reviewed, see documented allergy list. REVIEW OF SYSTEMS: Other than noted above, the 12 point review of systems was reviewed with the patient and were negative, all pertinent findings are included in the HPI. PHYSICAL EXAMINATION: Vital signs reviewed, nursing noted reviewed. GENERAL: Well-appearing, well-nourished and in no acute distress. HEAD: Atraumatic, normocephalic. EYES: Eyes appear normal, extraocular movements intact, sclera anicteric, conjunctiva are normal. ENT: nares patent, oropharynx clear without exudates. Moist mucous membranes. NECK: Normal range of motion, supple without lymphadenopathy LUNGS: Breath sounds clear to auscultation bilaterally and equal. No wheezes rales or rhonchi. Reproducible chest wall tenderness. HEART: Regular rate and rhythm without murmurs ABDOMEN: Soft, nontender, normoactive bowel sounds. No rebound, guarding, or rigidity. No masses appreciated. EXTREMITIES: Nontender, good range of motion, no pitting or edema. NEUROLOGICAL: No focal neurological deficits. Moves all extremities spontaneously Motor and sensory grossly intact on exam. PSYCH: Normal mood, normal affect. SKIN: Warm, Dry, normal turgor, no rashes or lesions noted on exposed skin TRAVEL OUTSIDE OF THE [place] IN LAST 30 DAYS: No - Related Data Allergies/Adverse Reactions: No Known Allergies Allergy (Verified 05/28/18 12:34) Past Medical History - Social History Smoking Status: Never Smoker Chew tobacco use (# tins/day): No Frequency of alcohol use: None Drug Abuse: None Family History: Hypertension Patient has suicidal ideation: No Patient has homicidal ideation: No - Past Medical History Cardiac Medical History: Reports: Hx Coronary Artery Disease - It is unknown if the patient has coronary artery disease, Hx Heart Attack - cardiac arrest, Hx Hypertension Pulmonary Medical History: Denies: Hx Tuberculosis Endocrine Medical History: Reports: Hx Hyperthyroidism Renal/ Medical History: Denies: Hx Peritoneal Dialysis GI Medical History: Reports: Hx Gastroesophageal Reflux Disease Psychiatric Medical History: Reports: Hx Depression, Hx Post Traumatic Stress Disorder Past Surgical History: Reports: Hx Cardiac Surgery - AICD, Hx Section - x1 - Immunizations Hx Diphtheria, Pertussis, Tetanus Vaccination: Yes - 2010 Physical Exam - Vital signs Vitals: Temp Pulse Resp BP Pulse Ox 98 F 76 20 126/84 H 99 05/28/18 11:38 05/28/18 11:38 05/28/18 11:38 05/28/18 11:38 05/28/18 11:38 Course - Re-evaluation Re-evalutation: Patient seen and examined vital signs reviewed. Laboratory data and imaging were ordered as appropriate for the patient's presenting symptoms and complaint, with consideration of any critical or life threatening conditions that may be associated with their obtained history and exam as noted above. Patient was treated with aspirin Results were reviewed when available and demonstrated unremarkable blood work, chest x-ray negative, EKG was unchanged from prior, troponins negative x2 The patient was re-evaluated and was stable Evaluation was most consistent with chest pain, nonspecific, patient had very brief episodes of chest pain in different locations of her chest, which is very atypical, with two negative troponins, and unchanged EKG and negative chest x- ray feel that the patient can be safely discharged home, she is advised to follow-up with her package dyer. Patient was agreeable to this plan of care. Results were discussed with the patient at this point, after careful consideration I feel that that patient can be discharged from the emergency department, the patient was educated treatments and reasons to return to the emergency department based on their presumed diagnosis as noted above, they were advised to followup with a primary care physician in 2-3 days. Patient was agreeable to plan of care. *Note is created using voice recognition software and may contain spelling, syntax or grammatical errors. Laboratory 05/28/18 05/28/18 05/28/18 10:50 10:50 10:50 WBC 5.2 RBC 4.38 Hgb 11.9 L Hct 37.0 MCV 85 MCH 27.3 MCHC 32.3 RDW 17.9 H Plt Count 284 Seg Neutrophils % 52.2 Lymphocytes % 34.9 Monocytes % 11.8 Eosinophils % 0.7 Basophils % 0.4 Absolute Neutrophils 2.7 Absolute Lymphocytes 1.8 Absolute Monocytes 0.6 Absolute Eosinophils 0.0 Absolute Basophils 0.0 Sodium 142.5 Potassium 4.2 Chloride 106 Carbon Dioxide 25 Anion Gap 12 BUN 11 Creatinine 0.86 Est GFR ( Amer) > 60 Est GFR (Non-Af Amer) > 60 Glucose 58 L Calcium 9.8 Total Bilirubin 0.4 Direct Bilirubin 0.2 Neonat Total Bilirubin Not Reportable Neonat Direct Bilirubin Not Reportable Neonat Indirect Bili Not Reportable AST 17 ALT 8 L Alkaline Phosphatase 63 CK-MB (CK-2) Troponin I Total Protein 8.1 Albumin 4.4 Lipase 271.8 Serum HCG, Qual NEGATIVE Urine Color Urine Appearance Urine pH Ur Specific Sula Urine Protein Urine Glucose (UA) Urine Ketones Urine Blood Urine Nitrite Urine Bilirubin Urine Urobilinogen Ur Leukocyte Esterase Urine WBC (Auto) Urine RBC (Auto) Squamous Epi Cells Auto Urine Mucus (Auto) Urine Ascorbic Acid 05/28/18 05/28/18 05/28/18 12:47 15:15 18:15 WBC RBC Hgb Hct MCV MCH MCHC RDW Plt Count Seg Neutrophils % Lymphocytes % Monocytes % Eosinophils % Basophils % Absolute Neutrophils Absolute Lymphocytes Absolute Monocytes Absolute Eosinophils Absolute Basophils Sodium Potassium Chloride Carbon Dioxide Anion Gap BUN Creatinine Est GFR ( Amer) Est GFR (Non-Af Amer) Glucose Calcium Total Bilirubin Direct Bilirubin Neonat Total Bilirubin Neonat Direct Bilirubin Neonat Indirect Bili AST ALT Alkaline Phosphatase CK-MB (CK-2) < 0.22 Troponin I < 0.012 < 0.012 Total Protein Albumin Lipase Serum HCG, Qual Urine Color COLORLESS Urine Appearance CLEAR Urine pH 7.0 Ur Specific Sula 1.002 Urine Protein NEGATIVE Urine Glucose (UA) NEGATIVE Urine Ketones NEGATIVE Urine Blood NEGATIVE Urine Nitrite NEGATIVE Urine Bilirubin NEGATIVE Urine Urobilinogen NEGATIVE Ur Leukocyte Esterase NEGATIVE Urine WBC (Auto) 0 Urine RBC (Auto) 0 Squamous Epi Cells Auto 1 Urine Mucus (Auto) RARE Urine Ascorbic Acid NEGATIVE Chest X-Ray 05/28/18 14:22 IMPRESSION: NO ACUTE RADIOGRAPHIC FINDING IN THE CHEST. - Vital Signs Vital signs: Temp Pulse Resp BP Pulse Ox 99.3 F 76 15 122/85 99 05/28/18 19:16 05/28/18 19:16 05/28/18 19:16 05/28/18 19:16 05/28/18 19:16 - Laboratory Result Diagrams: 05/28/18 10:50 05/28/18 10:50 Laboratory results interpreted by me: 05/28/18 05/28/18 10:50 10:50 Hgb 11.9 L RDW 17.9 H Glucose 58 L ALT 8 L - EKG Interpretation by Me Additional EKG results interpreted by me: EKG demonstrates sinus rhythm with a ventricular rate of 70 bpm, normal axis, normal EEG, this is compared to prior EKG from 01/19/2018, without significant change. Discharge - Discharge Clinical Impression: Chest pain Qualifiers: Chest pain type: unspecified Qualified Code(s): R07.9 - Chest pain, unspecified Condition: Stable Disposition: HOME, SELF-CARE Instructions: Chest Pain of Unclear Cause ([facility]) Additional Instructions: Please return to the emergency department if you have any worsening, or concern of your symptoms. Please return to the emergency department if you develop chest pain, difficulty breathing, severe abdominal pain, or ongoing vomiting. Please follow-up with your primary care physician in 2-3 days and any other recommended physicians. If prescribed, take all medications as directed. If you have any questions or concerns do not hesitate to return the emergency department for evaluation. Please make a call to follow-up with your package dyer, as it may benefit you to have a stress test, if you have any return or worsening symptoms, please return to the emergency department. Referrals: CHUCKY CORCORAN DO [Primary Care Provider] - Follow up in 3-5 days
--- NOTE | 2018-05-28 15:30 | RADIOLOGY REPORT (SQ) ---
EXAM DESCRIPTION: CHEST 2 VIEWS COMPLETED DATE/TIME: 05/28/2018 3:02 pm REASON FOR STUDY: chest pain COMPARISON: Chest films 01/19/2018, 10/09/2017 EXAM PARAMETERS: NUMBER OF VIEWS: two views TECHNIQUE: Digital Frontal and Lateral radiographic views of the chest acquired. RADIATION DOSE: NA LIMITATIONS: none FINDINGS: LUNGS AND PLEURA: No opacities, masses or pneumothorax. No pleural effusion. MEDIASTINUM AND HILAR STRUCTURES: No masses or contour abnormalities. HEART AND VASCULAR STRUCTURES: Heart normal size. No evidence for failure. BONES: No acute findings. HARDWARE: Unchanged left-sided pacemaker. OTHER: No other significant finding. IMPRESSION: NO ACUTE RADIOGRAPHIC FINDING IN THE CHEST. TECHNICAL DOCUMENTATION: JOB ID: [id number] [employer]- All Rights Reserved Reading location - IP/workstation name: [email or web address]
[2018-05-28] MEDS ORDERED: ASPIRIN 81 MG TABLET, CHEWABLE PO ONE (16:04)
[2018-05-28 16:11] LABS: CREATINE KINASE MB < 0.22 ng/mL (<4.55); TROPONIN I < 0.012 ng/mL
[2018-05-28 19:16] VITALS: BP 122/85
--- NOTE | 2018-05-28 21:42 | EKG REPORT ---
SEVERITY:- NORMAL ECG - SINUS RHYTHM : Confirmed by: Cheryl Agudelo MD 28-May-2018 21:41:38
== END 2018-05-28 19:17 | disposition home or self-care (01) ==
LOC: ER 11:26
DX: R07.81 Pleurodynia (principal); R42 Dizziness and giddiness; I10 Essential (primary) hypertension; Z86.74 Personal history of sudden cardiac arrest; Z95.810 Presence of automatic (implantable) cardiac defibrillator
CPT/HCPCS: 36415; 71046; 80053; 81001; 82553; 83690; 84484; 84703; 85025; 93005; 93010; 99284

== ENCOUNTER 2018-06-11 02:52 | Emergency (ER) | payer MEDICAID ==
--- NOTE | 2018-06-11 03:33 | ER Document Report ---
ED General - General Chief Complaint: Chest Pain Stated Complaint: HEART PROBLEM Time Seen by Provider: 06/11/18 03:13 Mode of Arrival: Ambulatory Information source: Patient Notes: A 38-year-old female with history of cardiac arrest at age 30, Graves' disease, and PTSD from repetitive ICD discharges presents to the emergency department for her ICD discharging while she was asleep. She says this happened once before aside from the episode when it fired multiple times. She has a [employer] ICD. Dr. Hernandez is her solutions architect. She denies any other symptoms. She denies fever, dyspnea, chest pain, diaphoresis. States her pacemaker was last interrogated about 6 months ago by her solutions architect. TRAVEL OUTSIDE OF THE [place] IN LAST 30 DAYS: No - Related Data Allergies/Adverse Reactions: No Known Allergies Allergy (Verified 05/28/18 12:34) Past Medical History - General Information source: Patient - Social History Smoking Status: Never Smoker Frequency of alcohol use: None Drug Abuse: None Family History: Hypertension Patient has suicidal ideation: No Patient has homicidal ideation: No - Past Medical History Cardiac Medical History: Reports: Hx Coronary Artery Disease - It is unknown if the patient has coronary artery disease, Hx Heart Attack - cardiac arrest, Hx Hypertension Pulmonary Medical History: Denies: Hx Tuberculosis Endocrine Medical History: Reports: Hx Hyperthyroidism Renal/ Medical History: Denies: Hx Peritoneal Dialysis GI Medical History: Reports: Hx Gastroesophageal Reflux Disease Psychiatric Medical History: Reports: Hx Depression - and anxiety, Hx Post Traumatic Stress Disorder Past Surgical History: Reports: Hx Cardiac Surgery - AICD, Hx Section - x1 - Immunizations Hx Diphtheria, Pertussis, Tetanus Vaccination: Yes - 2010 Review of Systems - Review of Systems Constitutional: See HPI EENT: See HPI Cardiovascular: See HPI Respiratory: See HPI Gastrointestinal: See HPI Genitourinary: See HPI Female Genitourinary: No symptoms reported Musculoskeletal: No symptoms reported Skin: No symptoms reported Hematologic/Lymphatic: No symptoms reported Neurological/Psychological: No symptoms reported Physical Exam - Vital signs Vitals: Temp Pulse Resp BP Pulse Ox 98.0 F 70 14 125/79 100 06/11/18 02:56 06/11/18 02:56 06/11/18 02:56 06/11/18 02:56 06/11/18 02:56 - Notes Notes: Reviewed vital signs and nursing note as charted by RN. CONSTITUTIONAL: Well-appearing, well-nourished, acting appropriately for age HEAD: Normocephalic, atraumatic, no swelling EYES: PERRL, Conjunctivae clear, no drainage, EOMI, no scleral icterus ENT: External ears without lesions, External auditory canal is patent, no rhinorrhea, airway patent, mucous membranes pink and moist NECK: Supple, no masses CARD: Regular rate and rhythm, no murmurs, no rubs, no gallops, capillary refill < 2 seconds, symmetric pulses RESP: The lungs are clear to auscultation bilaterally, no wheezing, no rales, no rhonchi. Respiratory rate and effort are normal, normal chest excursion. No respiratory distress, no retractions, no stridor, no nasal flaring, no accessory muscle use. ABD/GI: Normal bowel sounds, non-distended, soft, non-tender, no rebound, no guarding, no palpable organomegaly EXT: Normal ROM in all joints, non-tender to palpation, no effusions, no edema SKIN: Normal color for age and race, warm, dry, good turgor, no acute lesions noted NEURO: No facial asymmetry, moves all extremities equally, motor and sensory function intact Course - Re-evaluation Re-evalutation: 06/11/18 03:35 30-year-old female with history of cardiac arrest status post ICD placement presents to the emergency room for her ICD discharge while she was sleeping. Did [employer] and they are going to send a page for interrogation. Her solutions architect is Dr. Hernandez. She denies any other symptoms. Plan is to get chest x-ray and basic labs. 06/11/18 05:05 Labs and x-ray were unremarkable. Initially called [employer] to have rep come out to interrogate pacemaker instead we used the consult interrogator here and results were faxed back which showed no evidence of any discharge. Unclear why patient subjectively or objectively felt a shock, could potentially be a nightmare considering she has PTSD from when she had multiple shocks in the past. Reassured patient that no shock was delivered and she was stable for discharge. - Vital Signs Vital signs: Temp Pulse Resp BP Pulse Ox 98.0 F 70 14 125/79 100 06/11/18 02:56 06/11/18 02:56 06/11/18 02:56 06/11/18 02:56 06/11/18 02:56 - Laboratory Result Diagrams: 06/11/18 03:49 Laboratory results interpreted by me: 06/11/18 03:49 Chloride 108 H Discharge - Discharge Clinical Impression: No problem, feared complaint unfounded, ICD (implantable cardioverter- defibrillator) in place Condition: Good Disposition: HOME, SELF-CARE Additional Instructions: You are seen in the emergency department this evening for concern for ICD discharge. After interrogation of her pacemaker results show that there was no shock delivered. It is unclear why you felt this way but it could have been a nightmare considering you have PTSD. Please do not hesitate to return to the emergency department if you have any concerns, your ICD shocks, have chest pain. Referrals: CHUCKY CORCORAN, [Primary Care Provider] - Follow up as needed
--- NOTE | 2018-06-11 03:59 | RADIOLOGY REPORT (SQ) ---
EXAM DESCRIPTION: XR CHEST 1 VIEW COMPLETED DATE/TME: 06/11/2018 03:28 CLINICAL HISTORY: 38 years Female, pacemaker discharge COMPARISON:01/19/2018 NUMBER OF VIEWS/TECHNIQUE: 1/AP FINDINGS: Adequate lung volume, clear parenchyma, normal cardiac silhouette, and intact bony thorax. Left cardiac stimulator with leads. IMPRESSION: No acute cardiopulmonary findings.
[2018-06-11 04:17] LABS: ANION GAP 7 (5-19); BLOOD UREA NITROGEN 16 mg/dL (7-20); CARBON DIOXIDE 29 mmol/L (22-30); CHLORIDE 108 mmol/L (98-107); GLUCOSE 102 mg/dL (75-110); POTASSIUM 3.8 mmol/L (3.6-5.0)
[2018-06-11 04:54] VITALS: BP 116/73
--- NOTE | 2018-06-12 10:43 | EKG REPORT ---
SEVERITY:- ABNORMAL ECG - SINUS RHYTHM : Confirmed by: Tisha Solorzano 12-Jun-2018 10:42:29
== END 2018-06-11 04:50 | disposition home or self-care (01) ==
LOC: ER 02:52
DX: Z03.89 Encounter for observation for other suspected diseases and conditions ruled out (principal); Z45.02 Encounter for adjustment and management of automatic implantable cardiac defibrillator; F43.10 Post-traumatic stress disorder, unspecified; I25.2 Old myocardial infarction; I10 Essential (primary) hypertension
CPT/HCPCS: 36415; 71045; 80048; 83735; 93005; 93010; 99285

== ENCOUNTER 2018-06-15 23:06 | Emergency (ER) | payer MEDICAID ==
[2018-06-16] MEDS ORDERED: METOCLOPRAMIDE HCL INJ/PF 10 MG/2 ML SDV IV ONE (00:44)
[2018-06-16] MEDS ORDERED: NORMAL SALINE 1000 ML 1,000 ML IV ONE (00:45)
--- NOTE | 2018-06-16 00:47 | ER Document Report ---
ED Medical Screen (RME) - General Chief Complaint: Headache Stated Complaint: HEADACHE/SIDE PAIN Time Seen by Provider: 06/16/18 00:44 Notes: 38-year-old female chief complaint of headache but also states that she is having pain in her left upper abdomen and she also is getting frequent lightheadedness. She gets more lightheaded when she stands. Denies passing out , chest pain, shortness of breath, fever, head injury. States she gets frequent headaches. Past medical history of AICD, tubal ligation. TRAVEL OUTSIDE OF THE [place] IN LAST 30 DAYS: No - Related Data Allergies/Adverse Reactions: No Known Allergies Allergy (Verified 05/28/18 12:34) Past Medical History - Past Medical History Cardiac Medical History: Reports: Hx Coronary Artery Disease - It is unknown if the patient has coronary artery disease, Hx Heart Attack - cardiac arrest, Hx Hypertension Pulmonary Medical History: Denies: Hx Tuberculosis Endocrine Medical History: Reports: Hx Hyperthyroidism Renal/ Medical History: Denies: Hx Peritoneal Dialysis GI Medical History: Reports: Hx Gastroesophageal Reflux Disease Psychiatric Medical History: Reports: Hx Depression - and anxiety, Hx Post Traumatic Stress Disorder Past Surgical History: Reports: Hx Cardiac Surgery - AICD, Hx Section - x1 - Immunizations Hx Diphtheria, Pertussis, Tetanus Vaccination: Yes - 2010 Physical Exam - Vital signs Vitals: Temp Pulse Resp BP Pulse Ox 98.4 F 63 18 125/86 H 100 06/15/18 23:28 06/15/18 23:28 06/15/18 23:28 06/15/18 23:28 06/15/18 23:28 - General General appearance: Appears well In distress: None - Cardiovascular Rhythm: Regular. No: Tachycardia Heart sounds: Normal auscultation, S1 appreciated, S2 appreciated Course - Vital Signs Vital signs: Temp Pulse Resp BP Pulse Ox 98.4 F 63 18 125/86 H 100 06/15/18 23:28 06/15/18 23:28 06/15/18 23:28 06/15/18 23:28 06/15/18 23:28 Doctor's Discharge - Discharge Referrals: CHUCKY CORCORAN DO [Primary Care Provider] - Follow up as needed
[2018-06-16 02:03] LABS: ABSOLUTE EOSINOPHILS # (AUTO) 0.1 10^3/uL (0.0-0.6); ABSOLUTE LYMPHOCYTES (AUTO) 2.4 10^3/uL (0.5-4.7); ABSOLUTE MONOCYTES (AUTO) 0.4 10^3/uL (0.1-1.4); ABSOLUTE NEUT (AUTO) 1.9 10^3/uL (1.7-8.2); BASOPHILS % (AUTO) 0.5 % (0-2); EOSINOPHILS % (AUTO) 1.2 % (0-6); HEMATOCRIT 30.5 % (36.0-47.0); HEMOGLOBIN 9.9 g/dL (12.0-15.5); LYMPHOCYTES % (AUTO) 49.9 % (13-45); MEAN CORPUSCULAR HEMOGLOBIN 27.5 pg (27.0-33.4); MEAN CORPUSCULAR HGB CONC 32.4 g/dL (32.0-36.0); MEAN CORPUSCULAR VOLUME 85 fl (80-97); MONOCYTES % (AUTO) 8.3 % (3-13); PLATELET COUNT 279 10^3/uL (150-450); RED BLOOD COUNT 3.59 10^6/uL (3.72-5.28); RED CELL DISTRIBUTION WIDTH 17.8 % (11.5-14.0); SEGMENTED NEUTROPHILS % (AUTO) 40.1 % (42-78); TOTAL CELLS COUNTED % (AUTO) 100 %; WHITE BLOOD COUNT 4.8 10^3/uL (4.0-10.5)
[2018-06-16 02:04] LABS: APPEARANCE,URINE CLEAR; BILIRUBIN,URINE NEGATIVE (NEGATIVE); COLOR,URINE YELLOW; GLUCOSE, URINE NEGATIVE (NEGATIVE); KETONES,URINE NEGATIVE (NEGATIVE); LEUKOCYTE ESTERASE,URINE NEGATIVE (NEGATIVE); NITRITE,URINE NEGATIVE (NEGATIVE); PROTEIN,URINE NEGATIVE (NEGATIVE); UROBILINOGEN,URINE NEGATIVE mg/dL (<2.0)
--- NOTE | 2018-06-16 02:20 | ER Document Report ---
ED General - General Chief Complaint: Headache Stated Complaint: HEADACHE/SIDE PAIN Time Seen by Provider: 06/16/18 00:44 Notes: Patient is a 38-year-old female who presents with complaint of some intermittent mild central located abdominal pain. Says it comes and goes. She has had intermittent loose stools and and constipation and hard stools for several days. She does take magnesium orally which she thinks affects her stools. No blood in her stool. No vomiting. Some mild nausea. Second complaint is that she had some dizziness recently. She says it is whenever she is walking through a store when she looks at the lights she will become dizzy. Otherwise she is not having any further dizziness. No syncope. No passing out. She does have an AICD placement due to a history of underlying arrhythmia. She denies any recent problems with AICD. She was seen here a few days ago and at that time she woke up and thought maybe she got shocked but the interrogation of her AICD showed that there is no evidence of defibrillation. Patient denies any chest pain or palpitations. No difficulty breathing. No recent fevers. No other complaints at this time. Previous abdominal surgery includes tubal ligation. TRAVEL OUTSIDE OF THE [place] IN LAST 30 DAYS: No - Related Data Allergies/Adverse Reactions: No Known Allergies Allergy (Verified 05/28/18 12:34) Past Medical History - Social History Smoking Status: Never Smoker Frequency of alcohol use: None Drug Abuse: None Family History: Hypertension - Past Medical History Cardiac Medical History: Reports: Hx Coronary Artery Disease - It is unknown if the patient has coronary artery disease, Hx Heart Attack - cardiac arrest, Hx Hypertension Pulmonary Medical History: Denies: Hx Tuberculosis Endocrine Medical History: Reports: Hx Hyperthyroidism Renal/ Medical History: Denies: Hx Peritoneal Dialysis GI Medical History: Reports: Hx Gastroesophageal Reflux Disease Psychiatric Medical History: Reports: Hx Depression - and anxiety, Hx Post Traumatic Stress Disorder Past Surgical History: Reports: Hx Cardiac Surgery - AICD, Hx Section - x1 - Immunizations Hx Diphtheria, Pertussis, Tetanus Vaccination: Yes - 2010 Review of Systems - Review of Systems Notes: My Normal Review Basic REVIEW OF SYSTEMS: CONSTITUTIONAL : Denies fever, chills, or sweats. Denies recent illness. EENT: Denies eye, ear, throat, or mouth pain or symptoms. Denies nasal or sinus congestion. CARDIOVASCULAR: Denies chest pain. RESPIRATORY: Denies cough, cold, or chest congestion. Denies shortness of breath, difficulty breathing, or wheezing. GASTROINTESTINAL: abdominal pain, intermittent loose stools. GENITOURINARY: Denies difficulty urinating, painful urination, burning, frequency, or blood in urine. FEMALE GENITOURINARY: Denies vaginal bleeding, abnormal or irregular periods. MUSCULOSKELETAL: Denies neck or back pain or joint pain or swelling. SKIN: Denies rash or skin lesions. NEUROLOGICAL: Denies altered mental status or loss of consciousness. Denies headache. Denies weakness or paralysis or loss of use of either side. Denies problems with gait or speech. Denies sensory or motor loss. ALL OTHER SYSTEMS REVIEWED AND NEGATIVE. Physical Exam - Vital signs Vitals: Temp Pulse Resp BP Pulse Ox 98.4 F 63 18 125/86 H 100 06/15/18 23:28 06/15/18 23:28 06/15/18 23:28 06/15/18 23:28 06/15/18 23:28 - Notes Notes: General Appearance: Well nourished, alert, cooperative, no acute distress, no obvious discomfort. Well-appearing. Vitals: reviewed, See vital signs table. Head: no swelling or tenderness to the head Eyes: PERRL, EOMI, Conjuctiva clear Mouth: No decreasd moisture Lungs: No wheezing, No rales, No rhonci, No accessory muscle use, good air exchange bilaterally. Heart: Normal rate, Regular rythm, No murmur, no rub Abdomen: Normal BS, soft, No rigidity, no reproducible abdominal tenderness to palpation at this time., No guarding, no rebound, no abdominal masses, no organomegaly Extremities:, good pulses in all extremities, no edema. Skin: warm, dry, appropriate color, no rash Neuro: speech clear, oriented x 3, normal affect, responds appropriately to questions. Cranial nerves II through XII are intact. Patient moves all extremities without difficulty. Course - Re-evaluation Re-evalutation: 06/16/18 03:14 Patient is well-appearing. Her abdominal pain is very intermittent and she has alternating constipation and loose stools. This could represent possible underlying irritable bowel syndrome. Her blood work is normal appearing without signs of infection. She is not having active vomiting. As her dizziness, she says she is following up with an eye doctor soon as she thinks this could be vision problems being that her vision gets blurry when she looks at lights and that is only times feels dizzy. She otherwise does not feel dizzy when she is not looking at the light directly. She denies any chest pain or shortness of breath. No recent shocks from her defibrillator that she is aware of. No other complaints at this time. She has no neurologic deficits on exam. I encouraged her return to ER medially if she has recurrent worsening abdominal pain, vomiting, fevers, or if she feels that she is worse in any way. Patient agrees with plan will be discharged home. Dictation of this chart was performed using voice recognition software; therefore, there may be some unintended grammatical errors. - Vital Signs Vital signs: Temp Pulse Resp BP Pulse Ox 98.4 F 63 18 125/86 H 100 06/15/18 23:28 06/15/18 23:28 06/15/18 23:28 06/15/18 23:28 06/15/18 23:28 - Laboratory Result Diagrams: 06/16/18 01:40 06/16/18 01:40 Laboratory results interpreted by me: 06/16/18 06/16/18 01:40 01:40 RBC 3.59 L Hgb 9.9 L Hct 30.5 L RDW 17.8 H Seg Neutrophils % 40.1 L Lymphocytes % 49.9 H Chloride 108 H Carbon Dioxide 31 H - EKG Interpretation by Me Additional EKG results interpreted by me: 06/16/18 02:20 EKG is reviewed and interpreted by me. EKG shows sinus rhythm with a rate of [address] segment elevation or depression. No ischemic T wave inversions. CT interval, QRS duration, QT intervals are within normal range. Old EKG for comparison is from June 11, 2018. Discharge - Discharge Clinical Impression: Dizziness Abdominal pain Qualifiers: Abdominal location: generalized Qualified Code(s): R10.84 - Generalized abdominal pain Condition: Good Disposition: HOME, SELF-CARE Additional Instructions: Please return to the ER immediately if you have worsening abdominal pain, passing out episodes, palpitations, shock from your defibrillator. fevers, blood in your stool, vomiting, or feel unwell. please follow up with your doctor on Wednesday for reevaluation. Forms: Return to Work Referrals: CHUCKY CORCORAN, [Primary Care Provider] - 06/17/18
[2018-06-16 02:25] LABS: ALANINE AMINOTRANSFERASE 10 U/L (9-52); ALKALINE PHOSPHATASE 56 U/L (38-126); ANION GAP 6 (5-19); ASPARTATE AMINO TRANSFERASE 20 U/L (14-36); BILIRUBIN,DIRECT 0.3 mg/dL (0.0-0.4); BILIRUBIN,TOTAL 0.5 mg/dL (0.2-1.3); BLOOD UREA NITROGEN 13 mg/dL (7-20); CALCIUM 9.2 mg/dL (8.4-10.2); CARBON DIOXIDE 31 mmol/L (22-30); CHLORIDE 108 mmol/L (98-107); GLUCOSE 93 mg/dL (75-110); LIPASE 229.4 U/L (23-300); POTASSIUM 3.9 mmol/L (3.6-5.0); SODIUM 144.7 mmol/L (137-145); TOTAL PROTEIN 7.7 g/dL (6.3-8.2)
[2018-06-16 03:33] VITALS: BP 125/70
--- NOTE | 2018-06-16 21:27 | EKG REPORT ---
SEVERITY:- NORMAL ECG - SINUS RHYTHM : Confirmed by: Cheryl Agudelo MD 16-Jun-2018 21:26:02
== END 2018-06-16 03:34 | disposition home or self-care (01) ==
LOC: ER 23:06
DX: R10.84 Generalized abdominal pain (principal); R42 Dizziness and giddiness; R51 Headache; R19.7 Diarrhea, unspecified; K59.00 Constipation, unspecified; R11.0 Nausea; Z95.810 Presence of automatic (implantable) cardiac defibrillator; I25.2 Old myocardial infarction; I10 Essential (primary) hypertension
CPT/HCPCS: 93005; 99284; 96361; 96374; 36415; 83690; 84703; 85025; 80053; 81001; 93010; J2765; J7030

== ENCOUNTER 2018-11-08 08:05 | Emergency (ER) | payer MEDICAID ==
[2018-11-08 08:10] VITALS: BP 124/72
--- NOTE | 2018-11-08 08:52 | ER Document Report ---
HPI - HPI Time Seen by Provider: 11/08/18 08:40 Pain Level: 4 Notes: Patient is a 38-year-old female with history of hypertension, pacemaker placement, hypothyroid who presents to the emergency department complaining of nasal congestion and discharge with a dry nonproductive cough over the past 5 to 6 days. Patient states that the cough is only on occasion and does not bother her much. She is eating and drinking without difficulty. She is urinating normally and is having normal bowel movements. She has no other concerns or complaints. Denies drug allergies. Denies any headache, fever, neck pain, sore throat, chest pain, palpitations, syncope, shortness of breath, wheeze, dyspnea, abdominal pain, nausea/vomiting/diarrhea, urinary retention, dysuria, hematuria, or rash. - ROS Systems Reviewed and Negative: Yes All other systems reviewed and negative - REPRODUCTIVE Reproductive: DENIES: : Past Medical History - Social History Smoking Status: Never Smoker Family History: Hypertension - Past Medical History Cardiac Medical History: Reports: Hx Coronary Artery Disease - It is unknown if the patient has coronary artery disease, Hx Heart Attack - cardiac arrest, Hx Hypertension Pulmonary Medical History: Denies: Hx Tuberculosis Endocrine Medical History: Reports: Hx Hyperthyroidism Renal/ Medical History: Denies: Hx Peritoneal Dialysis GI Medical History: Reports: Hx Gastroesophageal Reflux Disease Psychiatric Medical History: Reports: Hx Depression - and anxiety, Hx Post Traumatic Stress Disorder Past Surgical History: Reports: Hx Cardiac Surgery - AICD, Hx Section - x1 - Immunizations Hx Diphtheria, Pertussis, Tetanus Vaccination: Yes - 2010 Vertical Provider Document - CONSTITUTIONAL Agree With Documented VS: Yes Notes: PHYSICAL EXAMINATION: GENERAL: Well-appearing, well-nourished and in no acute distress. A&Ox4. Answers questions appropriately. Moves comfortably w/o notable distress HEAD: Atraumatic, normocephalic. EYES: Pupils equal round and reactive to light, extraocular movements intact, sclera anicteric, conjunctiva are normal. ENT: EAC clear b/l. TM's intact b/l without erythema, fluid, or perforation. N manda patent and with clear discharge. oropharynx no erythema without exudates. No tonsilar hypertrophy without erythema or exudate. No palatine shift. Uvula midline. No tongue protrusion. No drooling, hoarseness, or airway compromise. Moist mucous membranes. No sinus tenderness. NECK: Normal range of motion, supple without lymphadenopathy. No rigidity/meningismus. LUNGS: Breath sounds clear to auscultation bilaterally and equal. No wheezes rales or rhonchi. No retractions HEART: Regular rate and rhythm without murmurs, rubs, gallops. ABDOMEN: Soft, nontender, nondistended abdomen. No guarding, no rebound. Normal bowel sounds present. NEUROLOGICAL: Normal speech, normal gait. PSYCH: Normal mood, normal affect. SKIN: Warm, Dry, normal turgor, no rashes or lesions noted. - INFECTION CONTROL TRAVEL OUTSIDE OF THE [place] IN LAST 30 DAYS: No Course - Re-evaluation Re-evalutation: 11/08/18 09:05 Patient is an afebrile, well-hydrated, 38-year-old female who presents to the emergency department with acute URI, suspect viral. Vitals are acceptable without significant tachycardia, tachypnea, or hypoxia. PE is otherwise unremarkable. Patient is nontoxic-appearing and is tolerating p.o. without difficulty. No labs or imaging warranted at this time. Low suspicion for any sepsis, meningitis, severe dehydration, respiratory compromise, or other systemic emergent condition at this time. Patient is aware that condition can change from initial presentation and she needs to monitor symptoms closely and seek medical attention with any acute changes. Recheck with your PCM in 3 to 5 days. Return to the ED with any other worsening/concerning symptoms. Patient is in agreement. - Vital Signs Vital signs: Temp Pulse Resp BP Pulse Ox 98.1 F 67 16 124/72 100 11/08/18 08:09 11/08/18 08:09 11/08/18 08:09 11/08/18 08:09 11/08/18 08:09 Discharge - Discharge Clinical Impression: Acute URI Condition: Stable Disposition: HOME, SELF-CARE Instructions: Upper Respiratory Illness ([facility]) Additional Instructions: Maintain adequate fluid intake Take meds as directed tylenol/ibuprofen as needed over the counter cold medication as needed for symptoms Humidified air may help Wash your hands regularly Wear a mask when coughing F/u: with your PCM in 3-5 days for a recheck Return to the ED with any fever, worsening pain, chest pain, palpitations, syncope, worsening GUO, neck pain/stiffness, shortness of breath, wheezing, drooling, trouble swallowing/breathing, abdominal pain, n/v/d, rash, or worsening/concerning symptoms otherwise. Referrals: CHUCKY CORCORAN DO [Primary Care Provider] - 11/11/18
== END 2018-11-08 09:10 | disposition home or self-care (01) ==
LOC: ER 08:05
DX: J06.9 Acute upper respiratory infection, unspecified (principal); I10 Essential (primary) hypertension; E03.9 Hypothyroidism, unspecified; Z95.810 Presence of automatic (implantable) cardiac defibrillator
CPT/HCPCS: 99283

== ENCOUNTER 2018-12-05 17:21 | Emergency (ER) | payer MEDICAID ==
--- NOTE | 2018-12-05 17:43 | ER Document Report ---
ED Medical Screen (RME) - General Chief Complaint: Abdominal Pain Stated Complaint: STOMACH PAIN Time Seen by Provider: 12/05/18 17:37 Primary Care Provider: CHUCKY CORCORAN DO [Primary Care Provider] - Follow up in 3-5 days Mode of Arrival: Ambulatory Information source: Patient Notes: Patient presents emergency department with complaints of abdominal pain that started this morning. Patient reports diarrhea this morning but denies fever vomiting nausea. Denies pain with void. Denies vaginal discharge. Reports she is been told she has gallbladder disease. Reports the pain feels like to her contractions that come and go. TRAVEL OUTSIDE OF THE [place] IN LAST 30 DAYS: No - HPI Onset: This morning Onset/Duration: Persistent Quality of pain: Pressure Severity: Moderate Pain Level: 3 Associated Symptoms: Diarrhea Exacerbated by: Denies Relieved by: Denies Similar symptoms previously: Yes Recently seen / treated by doctor: No - Related Data Allergies/Adverse Reactions: No Known Allergies Allergy (Verified 12/05/18 17:22) Past Medical History - General Information source: Patient Last Menstrual Period: last week - Social History Cigarette use (# per day): No Frequency of alcohol use: None Drug Abuse: None Family history: Reviewed & Not Pertinent - Past Medical History Cardiac Medical History: Reports: Hx Coronary Artery Disease - It is unknown if the patient has coronary artery disease, Hx Heart Attack - cardiac arrest, Hx Hypertension Pulmonary Medical History: Denies: Hx Tuberculosis Endocrine Medical History: Reports: Hx Hyperthyroidism Renal/ Medical History: Denies: Hx Peritoneal Dialysis GI Medical History: Reports: Hx Gastroesophageal Reflux Disease Psychiatric Medical History: Reports: Hx Depression - and anxiety, Hx Post Traumatic Stress Disorder Past Surgical History: Reports: Hx Cardiac Surgery - AICD, Hx Section - x1 - Immunizations Hx Diphtheria, Pertussis, Tetanus Vaccination: Yes - 2010 Review of Systems - Review of Systems Notes: Review HPI for review of systems., All other systems negative Physical Exam - Vital signs Vitals: Temp Pulse Resp BP Pulse Ox 98.6 F 67 17 127/81 H 100 12/05/18 17:25 12/05/18 17:25 12/05/18 17:25 12/05/18 17:25 12/05/18 17:25 - Notes Notes: PHYSICAL EXAMINATION: GENERAL: Well-appearing and in no acute distress nontoxic looking HEAD: Atraumatic, normocephalic. EYES: Pupils equal round , extraocular movements intact, sclera anicteric, conjunctiva are normal. ENT: nares patent, Moist mucous membranes. NECK: Normal range of motion, supple without lymphadenopathy LUNGS: CTAB and equal. No wheezes rales or rhonchi. HEART: Regular rate and rhythm without murmurs ABDOMEN: Soft, generalized tenderness, more epigastric. No guarding, no rebound EXTREMITIES: Normal range of motion, no pitting edema. NEUROLOGICAL: Cranial nerves grossly intact. PSYCH: Normal mood, normal affect. SKIN: Warm, Dry, normal turgor, no rashes or lesions noted Course - Re-evaluation Re-evalutation: 12/05/18 20:47 Labs unremarkable except for lipase elevated. Patient instructed on negative ultrasound for gallstones, positive fatty liver. Also instructed on the importance of follow-up with primary care provider and surgeon for further evaluation of her gallbladder. Was instructed on low-fat diet. She verbalized understanding to all instructions Dictation of this chart was performed using voice recognition software; theref ore, there may be some unintended grammatical errors. - Vital Signs Vital signs: Temp Pulse Resp BP Pulse Ox 98.0 F 67 20 131/85 H 100 12/05/18 20:10 12/05/18 20:10 12/05/18 20:10 12/05/18 20:10 12/05/18 20:10 - Laboratory Result Diagrams: 12/05/18 17:50 12/05/18 17:50 Laboratory results interpreted by me: 12/05/18 12/05/18 17:50 17:50 Hgb 11.3 L Hct 34.5 L Lipase 389.3 H - Diagnostic Test Radiology reviewed: Image reviewed, Reports reviewed - Positive hepatic steatosis, gallbladder with no stones normal wall thickness no pericholecystic fluid Doctor's Discharge - Discharge Clinical Impression: Abdominal pain, Hepatic steatosis Condition: Stable Disposition: HOME, SELF-CARE Instructions: Abdominal Pain ([facility]), Gallbladder Disease ([facility]) Additional Instructions: *You have been evaluated for abdominal pain, hepatic steosis *Clear liquid diet advance as tolerated *Follow up with a primary care provider within days for recheck and referral to surgeon as indicated *Return to ED for worsening condition, changes, needs *Return to ED if not better in 24 hours Referrals: CHUCKY CORCORAN, [Primary Care Provider] - Follow up in 3-5 days
[2018-12-05 18:22] LABS: ABSOLUTE EOSINOPHILS # (AUTO) 0.1 10^3/uL (0.0-0.6); ABSOLUTE MONOCYTES (AUTO) 0.4 10^3/uL (0.1-1.4); ABSOLUTE NEUT (AUTO) 2.4 10^3/uL (1.7-8.2); BASOPHILS % (AUTO) 0.6 % (0-2); EOSINOPHILS % (AUTO) 1.7 % (0-6); HEMATOCRIT 34.5 % (36.0-47.0); HEMOGLOBIN 11.3 g/dL (12.0-15.5); LYMPHOCYTES % (AUTO) 40.9 % (13-45); MEAN CORPUSCULAR HEMOGLOBIN 29.9 pg (27.0-33.4); MEAN CORPUSCULAR HGB CONC 32.8 g/dL (32.0-36.0); MEAN CORPUSCULAR VOLUME 91 fl (80-97); MONOCYTES % (AUTO) 8.2 % (3-13); PLATELET COUNT 231 10^3/uL (150-450); RED BLOOD COUNT 3.79 10^6/uL (3.72-5.28); RED CELL DISTRIBUTION WIDTH 13.9 % (11.5-14.0); SEGMENTED NEUTROPHILS % (AUTO) 48.6 % (42-78); TOTAL CELLS COUNTED % (AUTO) 100 %; WHITE BLOOD COUNT 4.9 10^3/uL (4.0-10.5)
[2018-12-05 18:26] LABS: APPEARANCE,URINE SLIGHTLY-CLOUDY; BILIRUBIN,URINE NEGATIVE (NEGATIVE); COLOR,URINE YELLOW; GLUCOSE, URINE NEGATIVE (NEGATIVE); KETONES,URINE NEGATIVE (NEGATIVE); LEUKOCYTE ESTERASE,URINE NEGATIVE (NEGATIVE); NITRITE,URINE NEGATIVE (NEGATIVE); PROTEIN,URINE NEGATIVE (NEGATIVE); URINE SPECIFIC GRAVITY 1.021; UROBILINOGEN,URINE NEGATIVE mg/dL (<2.0)
[2018-12-05 18:39] LABS: ALANINE AMINOTRANSFERASE 18 U/L (9-52); ALBUMIN 3.8 g/dL (3.5-5.0); ALKALINE PHOSPHATASE 53 U/L (38-126); ANION GAP 7 (5-19); ASPARTATE AMINO TRANSFERASE 21 U/L (14-36); BILIRUBIN,DIRECT 0.2 mg/dL (0.0-0.4); BILIRUBIN,TOTAL 0.3 mg/dL (0.2-1.3); BLOOD UREA NITROGEN 14 mg/dL (7-20); CALCIUM 9.2 mg/dL (8.4-10.2); CARBON DIOXIDE 30 mmol/L (22-30); CHLORIDE 105 mmol/L (98-107); GLUCOSE 94 mg/dL (75-110); LIPASE 389.3 U/L (23-300); POTASSIUM 4.2 mmol/L (3.6-5.0); SODIUM 141.9 mmol/L (137-145); TOTAL PROTEIN 6.7 g/dL (6.3-8.2)
--- NOTE | 2018-12-05 19:39 | RADIOLOGY REPORT (SQ) ---
EXAM DESCRIPTION: U/S ABDOMEN LIMITED W/O DOP COMPLETED DATE/TIME: 12/05/2018 7:15 pm REASON FOR STUDY: abd pain, hx gallbladder disease COMPARISON: 01/19/2018 TECHNIQUE: Dynamic and static grayscale images acquired of the abdomen and recorded on PACS. Sandrao laz selected color Doppler and spectral images recorded. LIMITATIONS: None. FINDINGS: PANCREAS: Not well seen. No obvious mass. LIVER: Slightly increased echogenicity. No mass. LIVER VASCULATURE: Normal directional flow of the main portal vein and hepatic veins. GALLBLADDER: No stones. Normal wall thickness. No pericholecystic fluid. ULTRASOUND-DETECTED SWANSON'S SIGN: Negative. INTRAHEPATIC DUCTS AND COMMON DUCT: CBD and intrahepatic ducts normal caliber. No filling defects. INFERIOR VENA CAVA: Not imaged. AORTA: No aneurysm. The proximal abdominal aorta was not seen. RIGHT KIDNEY: Normal size, 9 cm. Normal echogenicity. No solid or suspicious masses. No hydronephros is. No calcifications. PERITONEAL AND RIGHT PLEURAL SPACE: No ascites or effusions. OTHER: No other significant findings. IMPRESSION: There is some degree of hepatic steatosis. No acute finding. TECHNICAL DOCUMENTATION: JOB ID: [id number] [employer]- All Rights Reserved Reading location - IP/workstation name: [email or web address]
[2018-12-05 20:14] VITALS: BP 131/85
== END 2018-12-05 20:14 | disposition home or self-care (01) ==
LOC: ER 17:21
DX: R10.9 Unspecified abdominal pain (principal); K76.0 Fatty (change of) liver, not elsewhere classified; I25.10 Atherosclerotic heart disease of native coronary artery without angina pectoris; K21.9 Gastro-esophageal reflux disease without esophagitis; F41.9 Anxiety disorder, unspecified; F32.9 Major depressive disorder, single episode, unspecified; F43.10 Post-traumatic stress disorder, unspecified; Z95.810 Presence of automatic (implantable) cardiac defibrillator; E05.90 Thyrotoxicosis, unspecified without thyrotoxic crisis or storm
CPT/HCPCS: 36415; 76705; 80053; 81001; 81025; 83690; 85025; 99284

== ENCOUNTER 2019-03-19 01:42 | Emergency (ER) | payer MEDICAID ==
[2019-03-19] MEDS ORDERED: KETOROLAC TROMETHAMINE 60 MG/2 ML SDV IM ONE (03:11)
--- NOTE | 2019-03-19 03:13 | ER Document Report ---
ED General - General Chief Complaint: Chest Pain Stated Complaint: CHEST PAIN Time Seen by Provider: 03/19/19 02:42 Primary Care Provider: CHUCKY CORCORAN DO [Primary Care Provider] - Follow up as needed Mode of Arrival: Ambulatory Information source: Patient Notes: Chief complaint: Headache, right chest wall pain History of complain:( obtained from----patient) 39 years old female with a history of allergies presents today with headache sinus congestion, on and off coughing with right sided chest wall pain. Denies any difficulty in breathing wheezing. Denies any fever chills or other constitutional symptoms. She does have thyrotoxicosis. Has not checked her thyroid function over 6 months. Onset: As above Duration: Gradual Severity: Mild to moderate Quality: Sharp Context: As above Exacerbating factor and relieving factors: Change of position REVIEW OF SYSTEMS: CONSTITUTIONAL : Denies fever, chills, or sweats. Denies recent illness. EENT: Denies eye, ear, throat, or mouth pain or symptoms. Denies nasal or sinus congestion or discharge. Denies throat, tongue, or mouth swelling or difficulty swallowing. CARDIOVASCULAR: Denies chest pain. Denies palpitations or racing or irregular heart beat. Denies ankle edema. RESPIRATORY: Denies cough, cold, or chest congestion. Denies shortness of breath, difficulty breathing, or wheezing. GASTROINTESTINAL: Denies distention. Denies nausea, vomiting, or diarrhea. Denies blood in vomitus, stools, or per rectum. Denies black, tarry stools. Denies constipation. GENITOURINARY: Denies difficulty urinating, painful urination, burning, frequency, blood in urine, or discharge. FEMALE GENITOURINARY: Denies vaginal bleeding, heavy or abnormal periods, irregular periods. Denies vaginal discharge or odor. MUSCULOSKELETAL: Denies back or neck pain or stiffness. Denies joint pain or swelling. SKIN: Denies rash, lesions or sores. HEMATOLOGIC : Denies easy bruising or bleeding. LYMPHATIC: Denies swollen, enlarged glands. NEUROLOGICAL: Denies confusion or altered mental status. Denies passing out or loss of consciousness. Denies dizziness or lightheadedness. Denies headache. Denies weakness or paralysis or loss of use of either side. Denies problems with gait or speech. Denies sensory loss, numbness, or tingling. Denies seizures. PSYCHIATRIC: Denies anxiety or stress. Denies depression, suicidal ideation, or homicidal ideation. ALL OTHER SYSTEMS REVIEWED AND NEGATIVE. PHYSICAL EXAMINATION: GENERAL: Well-appearing, well-nourished and in mild to moderate acute distress. Obese HEAD: Atraumatic, normocephalic. EYES: Pupils equal round and reactive to light, extraocular movements intact, conjunctiva are normal. ENT: Nares patent, oropharynx clear without exudates. Moist mucous membranes. NECK: Normal range of motion, supple without lymphadenopathy LUNGS: Breath sounds clear to auscultation bilaterally and equal. No wheezes rales or rhonchi. HEART: Regular rate and rhythm without murmurs ABDOMEN: Soft, nontender, nondistended abdomen. No guarding, no rebound. No masses appreciated. Examination of genitals-deferred Musculoskeletal: Normal range of motion, no pitting or edema. No cyanosis. NEUROLOGICAL: Cranial nerves grossly intact. Normal speech, normal gait. Normal sensory, motor exams PSYCH: Normal mood, normal affect. SKIN: Warm, Dry, normal turgor, no rashes or lesions noted. Dictation was performed using [employer] voice recognition software TRAVEL OUTSIDE OF THE [place] IN LAST 30 DAYS: No - HPI Notes: Dictated - Related Data Allergies/Adverse Reactions: No Known Allergies Allergy (Verified 12/05/18 17:22) Past Medical History - Social History Smoking Status: Never Smoker Frequency of alcohol use: Rare Drug Abuse: None Lives with: Family Family History: Hypertension Patient has suicidal ideation: No Patient has homicidal ideation: No - Past Medical History Cardiac Medical History: Reports: Hx Coronary Artery Disease - It is unknown if the patient has coronary artery disease, Hx Heart Attack - cardiac arrest, Hx Hypertension Pulmonary Medical History: Denies: Hx Tuberculosis Endocrine Medical History: Reports: Hx Hyperthyroidism Renal/ Medical History: Denies: Hx Peritoneal Dialysis GI Medical History: Reports: Hx Gastroesophageal Reflux Disease Psychiatric Medical History: Reports: Hx Depression - and anxiety, Hx Post Traumatic Stress Disorder Past Surgical History: Reports: Hx Cardiac Surgery - AICD, Hx Section - x1 - Immunizations Hx Diphtheria, Pertussis, Tetanus Vaccination: Yes - 2010 Review of Systems - Review of Systems Notes: Dictated Physical Exam - Vital signs Vitals: Temp Pulse Resp BP Pulse Ox 97.9 F 68 16 120/79 99 03/19/19 01:56 03/19/19 01:56 03/19/19 01:56 03/19/19 01:56 03/19/19 01:56 - Notes Notes: Dictated Course - Vital Signs Vital signs: Temp Pulse Resp BP Pulse Ox 97.9 F 68 17 114/84 98 03/19/19 01:56 03/19/19 01:56 03/19/19 03:01 03/19/19 03:01 03/19/19 03:01 - Laboratory Result Diagrams: 03/19/19 03:15 03/19/19 03:15 Laboratory results interpreted by me: 03/19/19 03:15 Lymph % (Auto) 50.5 H Seg Neutrophils % 37.7 L - EKG Interpretation by [place] EKG shows normal: Sinus rhythm - Sinus rhythm at 67 bpm normal axis no acute ST- T wave changes noted. Discharge - Discharge Clinical Impression: Chest wall pain Headache Qualifiers: Headache type: unspecified Headache chronicity pattern: acute headache Intra ctability: not intractable Qualified Code(s): R51 - Headache Condition: Fair Disposition: HOME, SELF-CARE Instructions: Chest Wall Pain ([facility]), Headache ([facility]) Prescriptions: Ketorolac Tromethamine [Toradol 10 mg Tablet] 10 mg PO Q6HP PRN #14 tablet PRN Reason: Referrals: CHUCKY CORCORAN DO [Primary Care Provider] - Follow up as needed
[2019-03-19 03:25] LABS: ABSOLUTE EOSINOPHILS # (AUTO) 0.1 10^3/uL (0.0-0.6); ABSOLUTE LYMPHOCYTES (AUTO) 2.4 10^3/uL (0.5-4.7); ABSOLUTE MONOCYTES (AUTO) 0.5 10^3/uL (0.1-1.4); ABSOLUTE NEUT (AUTO) 1.8 10^3/uL (1.7-8.2); BASOPHILS % (AUTO) 0.8 % (0-2); EOSINOPHILS % (AUTO) 1.4 % (0-6); HEMATOCRIT 36.4 % (36.0-47.0); HEMOGLOBIN 12.1 g/dL (12.0-15.5); LYMPHOCYTES % (AUTO) 50.5 % (13-45); MEAN CORPUSCULAR HEMOGLOBIN 30.3 pg (27.0-33.4); MEAN CORPUSCULAR HGB CONC 33.1 g/dL (32.0-36.0); MEAN CORPUSCULAR VOLUME 92 fl (80-97); MONOCYTES % (AUTO) 9.6 % (3-13); PLATELET COUNT 233 10^3/uL (150-450); RED BLOOD COUNT 3.97 10^6/uL (3.72-5.28); RED CELL DISTRIBUTION WIDTH 13.6 % (11.5-14.0); SEGMENTED NEUTROPHILS % (AUTO) 37.7 % (42-78); TOTAL CELLS COUNTED % (AUTO) 100 %; WHITE BLOOD COUNT 4.7 10^3/uL (4.0-10.5)
[2019-03-19 04:05] LABS: ALBUMIN 3.7 g/dL (3.5-5.0); ALKALINE PHOSPHATASE 56 U/L (38-126); ANION GAP 5 (5-19); ASPARTATE AMINO TRANSFERASE 19 U/L (14-36); BILIRUBIN,TOTAL 0.3 mg/dL (0.2-1.3); BLOOD UREA NITROGEN 11 mg/dL (7-20); CALCIUM 9.2 mg/dL (8.4-10.2); CARBON DIOXIDE 30 mmol/L (22-30); CHLORIDE 104 mmol/L (98-107); GLUCOSE 92 mg/dL (75-110); POTASSIUM 3.9 mmol/L (3.6-5.0); TOTAL PROTEIN 6.9 g/dL (6.3-8.2)
[2019-03-19 04:15] LABS: CREATINE KINASE MB < 0.22 ng/mL (<4.55); TROPONIN I < 0.012 ng/mL
[2019-03-19 04:21] LABS: FREE T3 4.25 pg/mL (2.77-5.27); FREE T4 (FREE THYROXINE) 1.1 ng/dL (0.78-2.19)
[2019-03-19 04:35] LABS: THYROID STIMULATING HORMONE 3.89 uIU/mL (0.47-4.68)
[2019-03-19 06:22] VITALS: BP 120/79
--- NOTE | 2019-03-19 10:23 | EKG REPORT ---
SEVERITY:- NORMAL ECG - SINUS RHYTHM : Confirmed by: Cheryl Agudelo MD 19-Mar-2019 10:22:21
== END 2019-03-19 06:23 | disposition home or self-care (01) ==
LOC: ER 01:42
DX: R07.89 Other chest pain (principal); R51 Headache; R09.81 Nasal congestion; R05 Cough; E05.90 Thyrotoxicosis, unspecified without thyrotoxic crisis or storm; I25.10 Atherosclerotic heart disease of native coronary artery without angina pectoris; I25.2 Old myocardial infarction; I10 Essential (primary) hypertension
CPT/HCPCS: 93005; 99284; 96372; 36415; 84439; 82553; 84443; 85025; 80053; 84484; 84481; 93010; J1885

== ENCOUNTER 2019-03-29 16:22 | Emergency (ER) | payer MEDICAID ==
[2019-03-29] MEDS ORDERED: DIPHENHYDRAMINE HCL 25 MG CAPSULE PO ONE (16:37)
--- NOTE | 2019-03-29 16:39 | ER Document Report ---
ED Medical Screen (RME) - General Chief Complaint: Headache Stated Complaint: MIGRAINE/EAR PAIN Time Seen by Provider: 03/29/19 16:33 Primary Care Provider: CHUCKY CORCORAN DO [Primary Care Provider] - Follow up as needed Mode of Arrival: Ambulatory Information source: Patient Notes: 39-year-old female presents emergency department with left-sided headache ear pain that started last night. Has history of migraines and it feels like the same. Denies fever vomiting diarrhea. Patient has history of cardiac arrest defibrillator. No complaints of chest pain no shortness of breath. Patient took Tylenol for her headache but it did not resolve. I have greeted and performed a rapid initial assessment of this patient. A comprehensive ED assessment and evaluation of the patient, analysis of test results and completion of the medical decision making process will be conducted by additional ED providers. Dictation of this chart was performed using voice recognition software; therefore, there may be some unintended grammatical errors. TRAVEL OUTSIDE OF THE [place] IN LAST 30 DAYS: No - Related Data Allergies/Adverse Reactions: No Known Allergies Allergy (Verified 03/29/19 16:33) Past Medical History - Social History Chew tobacco use (# tins/day): No Frequency of alcohol use: None Drug Abuse: None Family history: Reviewed & Not Pertinent - Past Medical History Cardiac Medical History: Reports: Hx Coronary Artery Disease - It is unknown if the patient has coronary artery disease, Hx Heart Attack - cardiac arrest, Hx Hypertension Pulmonary Medical History: Denies: Hx Tuberculosis Endocrine Medical History: Reports: Hx Hyperthyroidism Renal/ Medical History: Denies: Hx Peritoneal Dialysis GI Medical History: Reports: Hx Gastroesophageal Reflux Disease Psychiatric Medical History: Reports: Hx Depression - and anxiety, Hx Post Traumatic Stress Disorder Past Surgical History: Reports: Hx Cardiac Surgery - AICD, Hx Section - x1 - Immunizations Hx Diphtheria, Pertussis, Tetanus Vaccination: Yes - 2010 Doctor's Discharge - Discharge Referrals: CHUCKY CORCORAN DO [Primary Care Provider] - Follow up as needed
[2019-03-29] MEDS ORDERED: PROCHLORPERAZINE EDISYLATE INJ 10 MG/2 ML VIAL IV ONE (18:51)
[2019-03-29] MEDS ORDERED: DEXAMETHASONE SOD PHOS INJ 10 MG/1 ML VIAL IV ONE (18:51)
[2019-03-29] MEDS ORDERED: DIPHENHYDRAMINE HCL 50 MG/ML VIAL IV ONE (18:51)
--- NOTE | 2019-03-29 19:53 | ER Document Report ---
HPI - HPI Patient complains to provider of: Headache Time Seen by Provider: 03/29/19 16:33 Onset: Yesterday Onset/Duration: Waxing and waning Quality of pain: Achy Pain Level: 2 Context: Patient presents with left-sided headache off and on since yesterday. Patient denies any nausea or vomiting. Patient does report photophobia and phonophobia. Patient states that she does get occasional migraines and this feels typical of headaches she has had in the past. Associated Symptoms: Headache. denies: Fever, Nausea, Vomiting Exacerbated by: Denies Relieved by: Denies Similar symptoms previously: Yes Recently seen / treated by doctor: No - ROS ROS below otherwise negative: Yes Systems Reviewed and Negative: Yes All other systems reviewed and negative - CONSTITUTIONAL Constitutional: DENIES: Fever - EENT EENT: DENIES: Sore Throat, Congestion - NEURO Neurology: REPORTS: Headache. DENIES: Vision blurred, Dizzinesss / Vertigo - GASTROINTESTINAL Gastrointestinal: DENIES: Nausea, Patient vomiting - REPRODUCTIVE Reproductive: DENIES: : - MUSCULOSKELETAL Musculoskeletal: DENIES: Back Pain, Neck Pain - DERM Skin Color: Normal Skin Problems: None Past Medical History - General Information source: Patient - Social History Smoking Status: Never Smoker Chew tobacco use (# tins/day): No Frequency of alcohol use: None Drug Abuse: None Occupation: none Family History: Hypertension Patient has suicidal ideation: No Patient has homicidal ideation: No - Past Medical History Cardiac Medical History: Reports: Hx Coronary Artery Disease - It is unknown if the patient has coronary artery disease, Hx Heart Attack - cardiac arrest, Hx Hypertension Pulmonary Medical History: Denies: Hx Tuberculosis Endocrine Medical History: Reports: Hx Hyperthyroidism Renal/ Medical History: Denies: Hx Peritoneal Dialysis GI Medical History: Reports: Hx Gastroesophageal Reflux Disease Psychiatric Medical History: Reports: Hx Depression - and anxiety, Hx Post Traumatic Stress Disorder Past Surgical History: Reports: Hx Cardiac Surgery - AICD, Hx Section - x1 - Immunizations Hx Diphtheria, Pertussis, Tetanus Vaccination: Yes - 2010 Vertical Provider Document - CONSTITUTIONAL Agree With Documented VS: Yes Exam Limitations: No Limitations General Appearance: WD/WN, No Apparent Distress - INFECTION CONTROL TRAVEL OUTSIDE OF THE [place] IN LAST 30 DAYS: No - HEENT HEENT: Atraumatic, Normal ENT Exam, Normocephalic - NECK Neck: Normal Inspection, Supple. negative: Lymphadenopathy-Left, Lymphadenopathy-Right Notes: No meningismus - RESPIRATORY Respiratory: Breath Sounds Normal, No Respiratory Distress - CARDIOVASCULAR Cardiovascular: Regular Rate, Regular Rhythm - GI/ABDOMEN Gastrointestinal: Abdomen Soft - BACK Back: Normal Inspection - MUSCULOSKELETAL/EXTREMETIES Musculoskeletal/Extremeties: MAJL, FROM - NEURO Level of Consciousness: Awake, Alert, Appropriate Motor/Sensory: No Motor Deficit Notes: No focal neurologic deficit - DERM Integumentary: Warm, Dry, No Rash Course - Re-evaluation Re-evalutation: 03/29/19 19:52 Patient reports headache pain is resolved at this time. The patient presents with headache without signs of [employer] bleed, stroke, infection, or other serious etiology. The patient is neurologically intact. Given the extremely low risk of these diagnoses further testing and evaluation for these possibilities does not appear to be indicated at this time. The patient has been instructed to return if the symptoms worsen or change in any way. - Vital Signs Vital signs: Temp Pulse Resp BP Pulse Ox 98.3 F 77 18 136/71 H 100 03/29/19 16:31 03/29/19 16:31 03/29/19 16:31 03/29/19 16:31 03/29/19 16:31 Discharge - Discharge Clinical Impression: Headache Qualifiers: Headache type: unspecified Headache chronicity pattern: episodic headache Intractability: not intractable Qualified Code(s): R51 - Headache Condition: Stable Disposition: HOME, SELF-CARE Instructions: Intravenous Compazine for Headaches ([facility]), Use of Diphenhydramine, Headache ([facility]) Additional Instructions: Return immediately for any new or worsening symptoms Followup with your primary care provider, call tomorrow to make a followup appointment Referrals: CLIFTON NORWOOD PA-C [Primary Care Provider] - Follow up as needed
[2019-03-29 20:02] VITALS: BP 128/90
== END 2019-03-29 20:02 | disposition home or self-care (01) ==
LOC: ER 16:22
DX: R51 Headache (principal); H53.149 Visual discomfort, unspecified; I25.10 Atherosclerotic heart disease of native coronary artery without angina pectoris; I25.2 Old myocardial infarction; I10 Essential (primary) hypertension
CPT/HCPCS: 99283; 96374; 96375; J3490; J1200; J0780; J1100

== ENCOUNTER 2019-05-07 01:10 | Emergency (ER) | payer MEDICAID ==
[2019-05-07 02:27] LABS: ABSOLUTE EOSINOPHILS # (AUTO) 0.1 10^3/uL (0.0-0.6); ABSOLUTE LYMPHOCYTES (AUTO) 2.2 10^3/uL (0.5-4.7); ABSOLUTE MONOCYTES (AUTO) 0.5 10^3/uL (0.1-1.4); BASOPHILS % (AUTO) 0.7 % (0-2); EOSINOPHILS % (AUTO) 2.1 % (0-6); HEMATOCRIT 36.4 % (36.0-47.0); HEMOGLOBIN 11.9 g/dL (12.0-15.5); LYMPHOCYTES % (AUTO) 45.7 % (13-45); MEAN CORPUSCULAR HEMOGLOBIN 29.7 pg (27.0-33.4); MEAN CORPUSCULAR HGB CONC 32.7 g/dL (32.0-36.0); MEAN CORPUSCULAR VOLUME 91 fl (80-97); MONOCYTES % (AUTO) 10.5 % (3-13); PLATELET COUNT 232 10^3/uL (150-450); RED BLOOD COUNT 4.02 10^6/uL (3.72-5.28); RED CELL DISTRIBUTION WIDTH 13.5 % (11.5-14.0); TOTAL CELLS COUNTED % (AUTO) 100 %; WHITE BLOOD COUNT 4.9 10^3/uL (4.0-10.5)
[2019-05-07] MEDS ORDERED: MAG HYDROX/AL HYDROX/SIMETH SUSP 30 ML UDCUP PO ONE (02:30)
[2019-05-07] MEDS ORDERED: LIDOCAINE 2% VISCOUS SOLN 20 ML UDCUP PO ONE (02:30)
--- NOTE | 2019-05-07 02:32 | ER Document Report ---
ED General - General Chief Complaint: Epigastric Pain Stated Complaint: CHEST PAIN Time Seen by Provider: 05/07/19 02:07 Primary Care Provider: CLIFTON NORWOOD PA-C [Primary Care Provider] - Follow up as needed Mode of Arrival: Ambulatory Information source: Patient Notes: Patient presents complaining of epigastric pain that started around 7 PM this evening. Patient also reports right upper chest pain is been off and on for the past week. Patient denies any pain at present. Patient denies any fever cough. Patient denies any nausea vomiting or diarrhea. TRAVEL OUTSIDE OF THE [place] IN LAST 30 DAYS: No - HPI Onset: This evening Onset/Duration: Gradual Quality of pain: Sharp Pain Level: 2 Associated symptoms: Other - Abdominal pain. denies: Nonproductive cough, Productive cough, Headache, Nausea, Vomiting Exacerbated by: Denies Relieved by: Denies Similar symptoms previously: No Recently seen / treated by doctor: No - Related Data Allergies/Adverse Reactions: No Known Allergies Allergy (Verified 03/29/19 16:33) Past Medical History - General Information source: Patient - Social History Smoking Status: Never Smoker Frequency of alcohol use: None Drug Abuse: None Occupation: None Family History: Hypertension Patient has suicidal ideation: No Patient has homicidal ideation: No - Past Medical History Cardiac Medical History: Reports: Hx Coronary Artery Disease - It is unknown if the patient has coronary artery disease, Hx Heart Attack - cardiac arrest, Hx Hypertension Pulmonary Medical History: Denies: Hx Tuberculosis Endocrine Medical History: Reports: Hx Hyperthyroidism Renal/ Medical History: Denies: Hx Peritoneal Dialysis GI Medical History: Reports: Hx Gastroesophageal Reflux Disease Psychiatric Medical History: Reports: Hx Depression - and anxiety, Hx Post Traumatic Stress Disorder Past Surgical History: Reports: Hx Cardiac Surgery - AICD, Hx Section - x1 - Immunizations Hx Diphtheria, Pertussis, Tetanus Vaccination: Yes - 2010 Review of Systems - Review of Systems Constitutional: No symptoms reported. denies: Fever, Recent illness EENT: No symptoms reported Cardiovascular: Chest pain - Off and on over the past week, none now. denies: Dizziness, Lightheaded Respiratory: No symptoms reported. denies: Cough Gastrointestinal: Abdominal pain. denies: Diarrhea, Nausea, Vomiting Genitourinary: No symptoms reported. denies: Dysuria Female Genitourinary: No symptoms reported Musculoskeletal: No symptoms reported. denies: Back pain Skin: No symptoms reported Hematologic/Lymphatic: No symptoms reported Neurological/Psychological: No symptoms reported Physical Exam - Vital signs Vitals: Temp Pulse Resp BP Pulse Ox 97.8 F 62 20 124/85 100 05/07/19 01:23 EST 05/07/19 01:23 EST 05/07/19 01:23 EST 05/07/19 01:23 EST 05/07/19 01:23 EST - General General appearance: Appears well, Alert In distress: None - HEENT Head: Normocephalic, Atraumatic Eyes: Normal Conjunctiva: Normal Nasal: Normal Mouth/Lips: Normal Mucous membranes: Normal Neck: Normal, Supple. No: Lymphadenopathy - Respiratory Respiratory status: No respiratory distress Chest status: Nontender. No: Pain with cough Breath sounds: Normal. No: Rales, Rhonchi, Stridor, Wheezing Chest palpation: Normal - Cardiovascular Rhythm: Regular Heart sounds: S1 appreciated, S2 appreciated Murmur: No - Abdominal Inspection: Morbidly Obese Distension: No distension Bowel sounds: Normal Tenderness: Tender - epig Organomegaly: No organomegaly - Back Back: Normal, Nontender. No: CVA tenderness - Extremities General upper extremity: Normal inspection, Normal strength General lower extremity: Normal inspection, Normal strength - Neurological Neuro grossly intact: Yes Cognition: Normal Black Coma Scale Eye Opening: Spontaneous [place]uncion Coma Scale Verbal: Oriented Black Coma Scale Motor: Obeys Commands Asuncion Coma Scale Total: 15 - Psychological Associated symptoms: Normal affect, Normal mood - Skin Skin Temperature: Warm Skin Moisture: Dry Skin Color: Normal Course - Re-evaluation Re-evalutation: 05/07/19 04:30 Patient presents with epigastric tenderness. Patient with mild elevation of lipase. Patient's epigastric pain did resolve after GI cocktail. Patient does have polyps noted on ultrasound with fatty infiltration of the liver. No concern for cholecystitis or choledocholithiasis. Patient also reports right upper chest pain off and on for the past week. Patient without any chest pain here. Low clinical suspicion for ACS given clinical history, exam, EKG without ST elevations or depressions, and negative initial troponin. HEART score less than or equal to 3. PE also seems unlikely given clinical history, absence of tachycardia or dyspnea. No concern for PE. CXR without evidence of pneumothorax or pneumonia. No widened mediastinum. Consulted with Dr. Cole longoria patient presentation diagnostic evaluation. - Vital Signs Vital signs: Temp Pulse Resp BP Pulse Ox 98.1 F 62 14 116/79 100 05/07/19 03:16 05/07/19 01:23 EST 05/07/19 05:00 05/07/19 05:01 05/07/19 05:00 - Laboratory Result Diagrams: 05/07/19 01:57 EST 05/07/19 01:57 EST Laboratory results interpreted by me: 05/07/19 05/07/19 01:57 EST 01:57 EST Hgb 11.9 L Lymph % (Auto) 45.7 H Seg Neutrophils % 41.0 L Lipase 432.7 H Labs- Entire Visit 05/07/19 05/07/19 05/07/19 01:57 EST 01:57 EST 01:57 EST WBC 4.9 RBC 4.02 Hgb 11.9 L Hct 36.4 MCV 91 MCH 29.7 MCHC 32.7 RDW 13.5 Plt Count 232 Lymph % (Auto) 45.7 H [place] % (Auto) 10.5 Eos % (Auto) 2.1 Baso % (Auto) 0.7 Absolute Neuts (auto) 2.0 Absolute Lymphs (auto) 2.2 Absolute Monos (auto) 0.5 Absolute Eos (auto) 0.1 Absolute Basos (auto) 0.0 Seg Neutrophils % 41.0 L Sodium 139.4 Potassium 4.0 Chloride 105 Carbon Dioxide 29 Anion Gap 5 BUN 12 Creatinine 0.99 Est GFR ( Amer) > 60 Est GFR (MDRD) Non-Af > 60 Glucose 97 Calcium 9.6 Total Bilirubin 0.3 Direct Bilirubin 0.1 Neonat Total Bilirubin Not Reportable Neonat Direct Bilirubin Not Reportable Neonat Indirect Bili Not Reportable AST 19 ALT 10 Alkaline Phosphatase 63 Troponin I < 0.012 Total Protein 7.5 Albumin 4.0 Lipase Serum HCG, Qual 05/07/19 05/07/19 01:57 EST 01:57 EST WBC RBC Hgb Hct MCV MCH MCHC RDW Plt Count Lymph % (Auto) [place] % (Auto) Eos % (Auto) Baso % (Auto) Absolute Neuts (auto) Absolute Lymphs (auto) Absolute Monos (auto) Absolute Eos (auto) Absolute Basos (auto) Seg Neutrophils % Sodium Potassium Chloride Carbon Dioxide Anion Gap BUN Creatinine Est GFR ( Amer) Est GFR (MDRD) Non-Af Glucose Calcium Total Bilirubin Direct Bilirubin Neonat Total Bilirubin Neonat Direct Bilirubin Neonat Indirect Bili AST ALT Alkaline Phosphatase Troponin I Total Protein Albumin Lipase 432.7 H Serum HCG, Qual NEGATIVE - Diagnostic Test Radiology reviewed: Reports reviewed - EKG Interpretation by Me EKG shows normal: Sinus rhythm Rate: Normal Additional EKG results interpreted by me: 05/07/19 04:[address] elevation, no T wave inversion, QTC 425 Discharge - Discharge Clinical Impression: Gall bladder polyp Chest pain Qualifiers: Chest pain type: unspecified Qualified Code(s): R07.9 - Chest pain, unspecified Gastritis Qualifiers: Gastritis type: unspecified gastritis Chronicity: unspecified Gastritis bleeding: without bleeding Qualified Code(s): K29.70 - Gastritis, unspecified, without bleeding Condition: Stable Disposition: HOME, SELF-CARE Instructions: Chest Pain of Unclear Cause ([facility]), Gallbladder Disease ([facility]) Additional Instructions: Return immediately for any new or worsening symptoms Followup with your primary care provider, call tomorrow to make a followup appointment You were seen today for chest pain. The exact cause of your pain is unclear. However, based on your cardiac enzyme testing, chest x-ray, and EKG it does not appear that it is from an immediately life-threatening cause at this time. Although your testing here is normal is critical that you follow-up with your primary care physician for continued evaluation of this chest pain and possible stress testing. I recommended you see your physician within the next 24-48 hours to be evaluated for consideration of a stress test. Please return to emergency department immediately if you have worsening of your chest pain, shortness of breath, vomiting, become unable to exert yourself due to pain or difficulty breathing, you pass out, or have any pain that radiates into your arms, jaw, or back. Please also return if you have any additional symptoms that are concerning to you. Prescriptions: Sucralfate [Carafate 1 gm Tablet] 1 gm PO ACHS #40 tablet Referrals: CLIFTON NORWOOD PA-C [Primary Care Provider] - Follow up as needed
[2019-05-07 02:51] LABS: ALKALINE PHOSPHATASE 63 U/L (38-126); ANION GAP 5 (5-19); ASPARTATE AMINO TRANSFERASE 19 U/L (14-36); BILIRUBIN,DIRECT 0.1 mg/dL (0.0-0.4); BILIRUBIN,TOTAL 0.3 mg/dL (0.2-1.3); BLOOD UREA NITROGEN 12 mg/dL (7-20); CALCIUM 9.6 mg/dL (8.4-10.2); CARBON DIOXIDE 29 mmol/L (22-30); CHLORIDE 105 mmol/L (98-107); GLUCOSE 97 mg/dL (75-110); TOTAL PROTEIN 7.5 g/dL (6.3-8.2)
--- NOTE | 2019-05-07 03:30 | RADIOLOGY REPORT (SQ) ---
EXAM DESCRIPTION: US ABDOMEN LIMITED COMPLETED DATE/TME: 05/07/2019 02:30 CLINICAL HISTORY: 39 years, Female, epig pain, hx gall stones COMPARISON: 12/22/2018 ultrasound TECHNIQUE: Limited right upper quadrant ultrasound LIMITATIONS: None. FINDINGS: Echogenic appearance to the liver consistent with fatty infiltrative change. No focal liver lesions. No definitive gallstones. Nonmobile bile nonshadowing echogenic tiny foci associated with the gallbladder wall could reflect tiny polyps. CBD measures 3 mm. Visualized pancreas, abdominal aorta, inferior vena cava, right kidney unremarkable. No ascites IMPRESSION: Possible tiny gallbladder polyps. Fatty infiltrative change to the liver. Remainder unremarkable copyright 2010 [employer] All Rights Reserved
--- NOTE | 2019-05-07 03:39 | RADIOLOGY REPORT (SQ) ---
EXAM DESCRIPTION: XR CHEST 2 VIEWS COMPLETED DATE/TME: 05/07/2019 02:30 CLINICAL HISTORY: right side cp COMPARISON: 06/11/2018 FINDINGS: Frontal and lateral views of the chest. Cardiomediastinal silhouette: Normal size and contour. Left-sided pacemaker. Low lung volumes. Elevation the left hemidiaphragm. Lungs: No consolidation, pneumothorax, or pleural effusion. Bones: Mild degenerative change of the spine. Leads overlie the chest. Upper abdomen: No abnormality identified. IMPRESSION: 1. No acute pulmonary process identified.
[2019-05-07 05:05] VITALS: BP 116/79
--- NOTE | 2019-05-07 08:10 | EKG REPORT ---
SEVERITY:- ABNORMAL ECG - SINUS RHYTHM BORDERLINE T ABNORMALITIES, ANT-LAT LEADS : Confirmed by: Capo Germain MD 07-May-2019 08:09:36
== END 2019-05-07 05:05 | disposition home or self-care (01) ==
LOC: ER 01:10
DX: K82.4 Cholesterolosis of gallbladder (principal); K29.70 Gastritis, unspecified, without bleeding; R07.9 Chest pain, unspecified; R10.13 Epigastric pain; E66.01 Morbid (severe) obesity due to excess calories; I10 Essential (primary) hypertension; Z95.810 Presence of automatic (implantable) cardiac defibrillator; I25.2 Old myocardial infarction
CPT/HCPCS: 93005; 99285; 36415; 83690; 84703; 85025; 80053; 84484; 71046; 76705; 93010; J3490 ×2

== ENCOUNTER 2019-09-12 18:02 | Emergency (ER) | payer MEDICAID ==
--- NOTE | 2019-09-12 19:52 | ER Document Report ---
ED Medical Screen (RME) - General Chief Complaint: Abdominal Pain Stated Complaint: ABDOMINAL PAIN,DIARRHEA,HEADACH Time Seen by Provider: 09/12/19 19:46 Primary Care Provider: CLIFTON NORWOOD PA-C [Primary Care Provider] - Follow up as needed Mode of Arrival: Ambulatory Information source: Patient Notes: 39-year-old female with history of thyroid issues and cardiac arrest when she was 30 years old presents to the emergency department with complaints of headache and diarrhea since yesterday. Also complains of some abdominal discomfort. She was evaluated by her primary care provider this morning and told she probably had a bug. She reports her symptoms were worse and he told her to come to the ED. She reports she took Tylenol for the headache but it is not gone away. She did drink some vitamin water and thought she was feeling better but she still did not get better. Patient was offered to be Profen and Pepto-Bismol. She reports she does not take ibuprofen. She reports she took Tylenol earlier today. I have greeted and performed a rapid initial assessment of this patient. A comprehensive ED assessment and evaluation of the patient, analysis of test results and completion of the medical decision making process will be conducted by additional ED providers. TRAVEL OUTSIDE OF THE [place] IN LAST 30 DAYS: No - Related Data Allergies/Adverse Reactions: No Known Allergies Allergy (Verified 03/29/19 16:33) Past Medical History - Social History Family history: Reviewed & Not Pertinent - Past Medical History Cardiac Medical History: Reports: Hx Coronary Artery Disease - It is unknown if the patient has coronary artery disease, Hx Heart Attack - cardiac arrest, Hx Hypertension Pulmonary Medical History: Denies: Hx Tuberculosis Endocrine Medical History: Reports: Hx Hyperthyroidism Renal/ Medical History: Denies: Hx Peritoneal Dialysis GI Medical History: Reports: Hx Gastroesophageal Reflux Disease Psychiatric Medical History: Reports: Hx Depression - and anxiety, Hx Post Traumatic Stress Disorder Past Surgical History: Reports: Hx Cardiac Surgery - AICD, Hx Section - x1 - Immunizations Hx Diphtheria, Pertussis, Tetanus Vaccination: Yes - 2010 Physical Exam - Vital signs Vitals: Temp Pulse Resp BP Pulse Ox 98.8 F 66 16 135/84 H 99 09/12/19 18:13 09/12/19 18:13 09/12/19 18:13 09/12/19 18:13 09/12/19 18:13 Course - Vital Signs Vital signs: Temp Pulse Resp BP Pulse Ox 98.8 F 66 16 135/84 H 99 09/12/19 18:13 09/12/19 18:13 09/12/19 18:13 09/12/19 18:13 09/12/19 18:13 Doctor's Discharge - Discharge Referrals: CLIFTON NORWOOD PA-C [Primary Care Provider] - Follow up as needed
[2019-09-12] MEDS ORDERED: BISMUTH SUBSALICYLATE 262 MG TAB.CHEW PO ONE (19:53)
[2019-09-12] MEDS ORDERED: KETOROLAC TROMETHAMINE INJ/PF 30 MG/1 ML SDV IV ONE (20:27)
[2019-09-12] MEDS ORDERED: ONDANSETRON HCL INJ/PF 4 MG/2 ML SDV IV ONE (20:27)
[2019-09-12] MEDS ORDERED: NORMAL SALINE 1000 ML 1,000 ML IV ONE (20:27)
[2019-09-12 20:30] LABS: ABSOLUTE EOSINOPHILS # (AUTO) 0.1 10^3/uL (0.0-0.6); ABSOLUTE LYMPHOCYTES (AUTO) 2.2 10^3/uL (0.5-4.7); ABSOLUTE MONOCYTES (AUTO) 0.4 10^3/uL (0.1-1.4); ABSOLUTE NEUT (AUTO) 1.9 10^3/uL (1.7-8.2); BASOPHILS % (AUTO) 0.6 % (0-2); EOSINOPHILS % (AUTO) 1.9 % (0-6); HEMATOCRIT 34.3 % (36.0-47.0); HEMOGLOBIN 11.2 g/dL (12.0-15.5); LYMPHOCYTES % (AUTO) 46.6 % (13-45); MEAN CORPUSCULAR HEMOGLOBIN 28.7 pg (27.0-33.4); MEAN CORPUSCULAR HGB CONC 32.8 g/dL (32.0-36.0); MEAN CORPUSCULAR VOLUME 88 fl (80-97); MONOCYTES % (AUTO) 9.3 % (3-13); PLATELET COUNT 237 10^3/uL (150-450); RED BLOOD COUNT 3.92 10^6/uL (3.72-5.28); RED CELL DISTRIBUTION WIDTH 16.8 % (11.5-14.0); SEGMENTED NEUTROPHILS % (AUTO) 41.6 % (42-78); TOTAL CELLS COUNTED % (AUTO) 100 %; WHITE BLOOD COUNT 4.6 10^3/uL (4.0-10.5)
--- NOTE | 2019-09-12 20:31 | ER Document Report ---
ED GI/ - General Chief Complaint: Abdominal Pain Stated Complaint: ABDOMINAL PAIN,DIARRHEA,HEADACH Time Seen by Provider: 09/12/19 19:46 Primary Care Provider: CLIFTON NORWOOD PA-C [Primary Care Provider] - Follow up as needed Mode of Arrival: Ambulatory Notes: Patient is a 39-year-old female that comes emergency department for chief complaint of abdominal cramps, 4-5 episodes of diarrhea since last night, and an intermittent headache since last night as well. She reports chills and sweating last night. She denies current abdominal pain, vomiting, flank pain, cough, shortness of breath, chest pain, sore throat, sinus congestion. She states she just got over sinus congestion and cough. She was seen by her primary care provider this morning and told she most likely had a cold/virus, she states she started feeling worse so she came in for evaluation. She was taking Tylenol at home without any change. She denies bloody diarrhea. She has been on recent antibiotics (amoxicillin for dental infection). She denies any obvious sick contacts. She is not vaccinated for influenza. Past medical history includes arrhythmia with arrest at 30 years old, AICD, metoprolol, , obesity, GERD. TRAVEL OUTSIDE OF THE [place] IN LAST 30 DAYS: No - Related Data Allergies/Adverse Reactions: No Known Allergies Allergy (Verified 03/29/19 16:33) Past Medical History - General Information source: Patient - Social History Smoking Status: Never Smoker Chew tobacco use (# tins/day): No Frequency of alcohol use: None Drug Abuse: None Lives with: Family Family History: Hypertension Patient has suicidal ideation: No Patient has homicidal ideation: No - Past Medical History Cardiac Medical History: Reports: Hx Coronary Artery Disease - It is unknown if the patient has coronary artery disease, Hx Heart Attack - cardiac arrest, Hx Hypertension Pulmonary Medical History: Denies: Hx Tuberculosis Endocrine Medical History: Reports: Hx Hyperthyroidism Renal/ Medical History: Denies: Hx Peritoneal Dialysis GI Medical History: Reports: Hx Gastroesophageal Reflux Disease Psychiatric Medical History: Reports: Hx Depression - and anxiety, Hx Post Traumatic Stress Disorder Past Surgical History: Reports: Hx Cardiac Surgery - AICD, Hx Section - x1 - Immunizations Hx Diphtheria, Pertussis, Tetanus Vaccination: Yes - 2010 Review of Systems - Review of Systems Constitutional: See HPI EENT: No symptoms reported Cardiovascular: No symptoms reported Respiratory: No symptoms reported Gastrointestinal: See HPI Genitourinary: No symptoms reported Female Genitourinary: No symptoms reported Musculoskeletal: No symptoms reported Skin: No symptoms reported Hematologic/Lymphatic: No symptoms reported Neurological/Psychological: See HPI Physical Exam - Vital signs Vitals: Temp Pulse Resp BP Pulse Ox 98.8 F 66 16 135/84 H 99 09/12/19 18:13 09/12/19 18:13 09/12/19 18:13 09/12/19 18:13 09/12/19 18:13 - Notes Notes: GENERAL: Alert, interacts well. No acute distress. Smiling and well-appearing. HEAD: Normocephalic, atraumatic. EYES: Pupils equal, round, and reactive to light. Extraocular movements intact. ENT: Oral mucosa dry, tongue midline. Oropharynx unremarkable. Airway patent. NECK: Full range of motion. Supple. Trachea midline. LUNGS: Clear to auscultation bilaterally, no wheezes, rales, or rhonchi. No respiratory distress. HEART: Regular rate and rhythm. No murmur ABDOMEN: Soft, non-tender. Non-distended. Bowel sounds present in all 4 quadrants. GENITOURINARY: Deferred EXTREMITIES: Moves all 4 extremities spontaneously. No edema, normal radial and dorsalis pedis pulses bilaterally. No cyanosis. BACK: no cervical, thoracic, lumbar midline tenderness. No saddle anesthesia, normal distal neurovascular exam. Moves all extremities in full range of motion. NEUROLOGICAL: Alert and oriented x3. Normal speech. Cranial nerves II through XII grossly intact. PSYCH: Normal affect, normal mood. SKIN: Warm, dry, normal turgor. No rashes or lesions noted. Course - Re-evaluation Re-evalutation: Patient has a looks great, she is smiling, talkative, well-appearing. She does have dry mucous membranes but otherwise her evaluation is very reassuring. No nuchal rigidity, no neck tenderness, normal neurological exam, soft benign abdomen. CBC unremarkable, chemistry unremarkable, urinalysis shows elevated specific gravity but otherwise unremarkable. negative. Influenza negative. On evaluation after treatment with IV fluids, Toradol, Zofran patient sitting on the edge of the bed, states she feels great, states she feels completely better, states she is ready to go home. She has not been able to provide us with a sample of diarrhea despite being here for some hours. As result I have a very low suspicion of concerning infection, she is able to tolerate p.o. without any difficulty. Overall presentation very reassuring, may be a mild viral illness, very low suspicion of emergent etiology in either the abdomen or intracranial areas. Discussed follow-up with primary care, patient is requesting Zofran for home and she was provided with this, discussed return precautions. Patient states understanding and agreement. Stable at time of discharge. - Vital Signs Vital signs: Temp Pulse Resp BP Pulse Ox 97.9 F 80 18 124/70 100 09/13/19 00:09 09/13/19 00:09 09/13/19 00:09 09/13/19 00:09 09/13/19 00:09 - Laboratory Result Diagrams: 09/12/19 20:10 09/12/19 20:10 Laboratory results interpreted by me: 09/12/19 09/12/19 20:10 22:35 Hgb 11.2 L Hct 34.3 L RDW 16.8 H Lymph % (Auto) 46.6 H Seg Neutrophils % 41.6 L Urine Blood LARGE H Urine Ascorbic Acid 40 H Discharge - Discharge Clinical Impression: Dehydration Headache Qualifiers: Headache type: unspecified Headache chronicity pattern: acute headache Intracta bility: not intractable Qualified Code(s): R51 - Headache Diarrhea Qualifiers: Diarrhea type: unspecified type Qualified Code(s): R19.7 - Diarrhea, unspecified Condition: Stable Disposition: HOME, SELF-CARE Additional Instructions: Your work-up shows dehydration but is otherwise reassuring. I suspect her sy mptoms will simply resolve with time. Start with bland food and plenty of fluids, rest. For headaches you can take the Zofran along with Tylenol, ibuprofen, and Benadryl if needed. Follow-up with primary care for additional management. Return if you worsen including severe return headache, vomiting, spiking fever, severe abdominal pain, or any other concerning symptoms. Prescriptions: Ondansetron [Zofran Odt 4 mg Tablet] 1 - 2 tab PO Q4H PRN #15 tab.rapdis PRN Reason: For Nausea/Vomiting Referrals: CLIFTON NORWOOD PA-C [Primary Care Provider] - Follow up as needed
[2019-09-12] MEDS ORDERED: BISMUTH SUBSALICYLATE 262 MG TAB.CHEW ONE (20:50)
[2019-09-12 20:59] LABS: ALKALINE PHOSPHATASE 57 U/L (38-126); ANION GAP 8 (5-19); ASPARTATE AMINO TRANSFERASE 18 U/L (14-36); BILIRUBIN,DIRECT 0.3 mg/dL (0.0-0.4); BILIRUBIN,TOTAL 0.3 mg/dL (0.2-1.3); BLOOD UREA NITROGEN 14 mg/dL (7-20); CALCIUM 9.4 mg/dL (8.4-10.2); CARBON DIOXIDE 29 mmol/L (22-30); CHLORIDE 103 mmol/L (98-107); GLUCOSE 86 mg/dL (75-110); TOTAL PROTEIN 7.6 g/dL (6.3-8.2)
[2019-09-12 21:08] LABS: A TYPE INFLUENZA AG NEGATIVE (NEGATIVE); B INFLUENZA AG NEGATIVE (NEGATIVE)
[2019-09-12 22:54] LABS: APPEARANCE,URINE CLEAR; BILIRUBIN,URINE NEGATIVE (NEGATIVE); COLOR,URINE YELLOW; GLUCOSE, URINE NEGATIVE (NEGATIVE); KETONES,URINE NEGATIVE (NEGATIVE); LEUKOCYTE ESTERASE,URINE NEGATIVE (NEGATIVE); NITRITE,URINE NEGATIVE (NEGATIVE); PROTEIN,URINE NEGATIVE (NEGATIVE); URINE SPECIFIC GRAVITY 1.027; UROBILINOGEN,URINE NEGATIVE mg/dL (<2.0)
[2019-09-12 22:56] LABS: ADD MANUAL MICROSCOPIC YES; RBC,URINE TOO NUMEROUS TO CNT /HPF
[2019-09-13 00:10] VITALS: BP 124/70
== END 2019-09-13 00:12 | disposition home or self-care (01) ==
LOC: ER 18:02
DX: R19.7 Diarrhea, unspecified (principal); R51 Headache; R68.83 Chills (without fever); R61 Generalized hyperhidrosis; E86.0 Dehydration; I10 Essential (primary) hypertension; I49.9 Cardiac arrhythmia, unspecified; I25.2 Old myocardial infarction; Z95.810 Presence of automatic (implantable) cardiac defibrillator; Z79.899 Other long term (current) drug therapy
CPT/HCPCS: 99283; 96361; 96374; 96375; 36415; 85025; 81025; 80053; 81001; 87804; J1885; J2405; J7030

== ENCOUNTER 2019-10-08 23:10 | Emergency (ER) | payer MEDICAID ==
[2019-10-09 00:07] LABS: ABSOLUTE BASOPHILS # (AUTO) 0.1 10^3/uL (0.0-0.2); ABSOLUTE EOSINOPHILS # (AUTO) 0.1 10^3/uL (0.0-0.6); ABSOLUTE LYMPHOCYTES (AUTO) 2.8 10^3/uL (0.5-4.7); ABSOLUTE MONOCYTES (AUTO) 0.6 10^3/uL (0.1-1.4); ABSOLUTE NEUT (AUTO) 2.3 10^3/uL (1.7-8.2); BASOPHILS % (AUTO) 0.9 % (0-2); EOSINOPHILS % (AUTO) 1.6 % (0-6); HEMATOCRIT 35.3 % (36.0-47.0); HEMOGLOBIN 11.9 g/dL (12.0-15.5); LYMPHOCYTES % (AUTO) 47.5 % (13-45); MEAN CORPUSCULAR HEMOGLOBIN 28.9 pg (27.0-33.4); MEAN CORPUSCULAR HGB CONC 33.8 g/dL (32.0-36.0); MEAN CORPUSCULAR VOLUME 86 fl (80-97); MONOCYTES % (AUTO) 10.8 % (3-13); PLATELET COUNT 187 10^3/uL (150-450); RED BLOOD COUNT 4.13 10^6/uL (3.72-5.28); RED CELL DISTRIBUTION WIDTH 15.8 % (11.5-14.0); SEGMENTED NEUTROPHILS % (AUTO) 39.2 % (42-78); TOTAL CELLS COUNTED % (AUTO) 100 %
--- NOTE | 2019-10-09 00:16 | EKG REPORT ---
SEVERITY:- NORMAL ECG - SINUS RHYTHM : Confirmed by: Tisha Solorzano 09-Oct-2019 00:14:55
[2019-10-09 00:27] LABS: ALBUMIN 4.3 g/dL (3.5-5.0); ALKALINE PHOSPHATASE 64 U/L (38-126); ANION GAP 5 (5-19); ASPARTATE AMINO TRANSFERASE 21 U/L (14-36); BILIRUBIN,TOTAL 0.3 mg/dL (0.2-1.3); BLOOD UREA NITROGEN 15 mg/dL (7-20); CALCIUM 9.5 mg/dL (8.4-10.2); CARBON DIOXIDE 27 mmol/L (22-30); CHLORIDE 105 mmol/L (98-107); CREATINE KINASE 92 U/L (30-135); GLUCOSE 97 mg/dL (75-110); POTASSIUM 4.3 mmol/L (3.6-5.0); TOTAL PROTEIN 7.9 g/dL (6.3-8.2)
[2019-10-09 00:44] LABS: CREATINE KINASE MB 0.24 ng/mL (<4.55)
[2019-10-09 00:45] LABS: TROPONIN I < 0.012 ng/mL
[2019-10-09] MEDS ORDERED: MAG HYDROX/AL HYDROX/SIMETH SUSP 30 ML UDCUP PO ONE (00:47)
[2019-10-09] MEDS ORDERED: LIDOCAINE 2% VISCOUS SOLN 15 ML UDCUP PO ONE (00:47)
[2019-10-09] MEDS ORDERED: METOCLOPRAMIDE HCL ORAL SOLN 10 MG/10 ML UDCUP PO ONE (00:47)
--- NOTE | 2019-10-09 00:47 | ER Document Report ---
ED General - General Chief Complaint: Chest Pain Stated Complaint: CHEST PAIN Time Seen by Provider: 10/09/19 00:29 Primary Care Provider: CLIFTON NORWOOD PA-C [Primary Care Provider] - Follow up in 3-5 days Notes: Patient is a 39-year-old female that comes emergency department for chief complaint of right-sided chest discomfort that started around 7:30 PM. She states that symptoms started after she "ate a bunch of grilled and alliance party food". Symptoms worsened when she tried to lie down tonight. She states that she t hought it was heartburn took her Nexium without any change, as result she came in to be evaluated. She states she took her nightly aspirin already. She denies shortness of breath, fever/chills, cough, nausea, vomiting, abdominal pain, dizziness, or any other complaints. Past medical history of AICD placement (she has a history of dysrhythmia causing arrest at the age of 30, takes metoprolol as well), hypothyroidism, anxiety/depression, obesity, GERD. She denies alcohol, smoking, recreational drugs. TRAVEL OUTSIDE OF THE [place] IN LAST 30 DAYS: No - Related Data Allergies/Adverse Reactions: No Known Allergies Allergy (Verified 03/29/19 16:33) Past Medical History - General Information source: Patient - Social History Smoking Status: Never Smoker Frequency of alcohol use: None Drug Abuse: None Lives with: Family Family History: Hypertension Patient has suicidal ideation: No Patient has homicidal ideation: No - Past Medical History Cardiac Medical History: Reports: Hx Coronary Artery Disease - It is unknown if the patient has coronary artery disease, Hx Heart Attack - cardiac arrest, Hx Hypertension Pulmonary Medical History: Denies: Hx Tuberculosis Endocrine Medical History: Reports: Hx Hyperthyroidism Renal/ Medical History: Denies: Hx Peritoneal Dialysis GI Medical History: Reports: Hx Gastroesophageal Reflux Disease Psychiatric Medical History: Reports: Hx Depression - and anxiety, Hx Post Traumatic Stress Disorder Past Surgical History: Reports: Hx Cardiac Surgery - AICD, Hx Section - x1 - Immunizations Hx Diphtheria, Pertussis, Tetanus Vaccination: Yes - 2010 Review of Systems - Review of Systems Constitutional: No symptoms reported EENT: No symptoms reported Cardiovascular: See HPI Respiratory: No symptoms reported Gastrointestinal: See HPI Genitourinary: No symptoms reported Female Genitourinary: No symptoms reported Musculoskeletal: No symptoms reported Skin: No symptoms reported Hematologic/Lymphatic: No symptoms reported Neurological/Psychological: No symptoms reported Physical Exam - Vital signs Vitals: Temp Pulse Resp BP Pulse Ox 97.9 F 73 18 139/93 H 100 10/08/19 23:22 10/08/19 23:22 10/08/19 23:22 10/08/19 23:22 10/08/19 23:22 - Notes Notes: GENERAL: Alert, interacts well. No acute distress. HEAD: Normocephalic, atraumatic. EYES: Pupils equal, round, and reactive to light. Extraocular movements intact. ENT: Oral mucosa moist, tongue midline. Oropharynx unremarkable. Airway patent. NECK: Full range of motion. Supple. Trachea midline. No lymphadenopathy. LUNGS: Clear to auscultation bilaterally, no wheezes, rales, or rhonchi. No respiratory distress. Non-tender chest wall. HEART: Regular rate and rhythm. No murmur ABDOMEN: Soft, non-tender. Non-distended. Bowel sounds present in all 4 quadrants. GENITOURINARY: Deferred EXTREMITIES: Moves all 4 extremities spontaneously. No edema, normal radial and dorsalis pedis pulses bilaterally. No cyanosis. BACK: no cervical, thoracic, lumbar midline tenderness. No saddle anesthesia, normal distal neurovascular exam. Moves all extremities in full range of motion. NEUROLOGICAL: Alert and oriented x3. Normal speech. Cranial nerves II through XII grossly intact. Strength 5/5 in all extremities. PSYCH: Normal affect, normal mood. SKIN: Warm, dry, normal turgor. No rashes or lesions noted. Course - Re-evaluation Re-evalutation: Patient smiling, playing on her phone, no signs of distress. No tenderness with palpation of the chest wall or abdomen, patient is reporting she still has the symptoms but she feels like they are gastrointestinal/from GERD. Vital signs unremarkable. EKG unremarkable, chest x-ray normal, CBC, chemistry, troponin negative. negative. Patient was given GI cocktail, after the symptoms resolved. On reevaluation patient has no complaints, she is requesting to leave. She asks for [id number] recommendations for when she gets symptoms like this. I did discuss potentially recycling troponin, however this was declined and I feel this is appropriate because of her very specific symptoms, right-sided pain, negative work-up, and reassuring history including heart score less than 3. Patient has good follow-up, discussed return precautions, patient states romero reciation and agreement. Stable and well-appearing at time of discharge. - Vital Signs Vital signs: Temp Pulse Resp BP Pulse Ox 97.9 F 73 14 119/77 100 10/08/19 23:22 10/08/19 23:22 10/09/19 02:01 10/09/19 02:01 10/09/19 02:01 - Laboratory Result Diagrams: 10/08/19 23:53 10/08/19 23:53 Laboratory results interpreted by me: 10/08/19 23:53 Hgb 11.9 L Hct 35.3 L RDW 15.8 H Lymph % (Auto) 47.5 H Seg Neutrophils % 39.2 L - EKG Interpretation by Me Additional EKG results interpreted by me: EKG shows sinus rhythm at a rate of 67, normal axis, no T wave inversions or ST segment changes in consecutive leads, QTC of 418. Machine reads as normal. Discharge - Discharge Clinical Impression: Right-sided chest pain GERD (gastroesophageal reflux disease) Qualifiers: Esophagitis presence: esophagitis presence not specified Qualified Code(s): K21.9 - Gastro-esophageal reflux disease without esophagitis Condition: Stable Disposition: HOME, SELF-CARE Additional Instructions: Based on your work-up and response to treatment I do suspect your symptoms are coming from your upper gastrointestinal tract along with your GERD. Continue Nexium, if needed you can take [id number] Maalox and famotidine together for your symptoms. Avoid spicy foods, caffeinated foods, alcohol, smoking, NSAIDs if possible. Follow-up with primary care. Return if you worsen including return to worsening pain, vomiting, fever, difficulty breathing, passing out, or any other concerning symptoms. Referrals: CLIFTON NORWOOD PA-C [Primary Care Provider] - Follow up in 3-5 days
--- NOTE | 2019-10-09 00:58 | RADIOLOGY REPORT (SQ) ---
EXAM DESCRIPTION: PA and lateral radiographs of the chest CLINICAL HISTORY: 39 years Female, CHEST PAIN COMPARISON: Two views of the chest dated May 07, 2019 FINDINGS: Lungs: Lungs are clear. No pneumonia or edema. No pneumothorax or pleural effusion. Mediastinum: ICD device remains in place. Cardiac and mediastinal silhouette are unchanged. Bones: Osseous structures are normal. IMPRESSION: No acute process. No significant interval change.
[2019-10-09 02:05] VITALS: BP 119/77
== END 2019-10-09 02:09 | disposition home or self-care (01) ==
LOC: ER 23:10
DX: R07.9 Chest pain, unspecified (principal); K21.9 Gastro-esophageal reflux disease without esophagitis; I10 Essential (primary) hypertension; Z95.810 Presence of automatic (implantable) cardiac defibrillator; I25.2 Old myocardial infarction
CPT/HCPCS: 93005; 99285; 36415; 82553; 82550; 84703; 85025; 80053; 84484; 71046; 93010; J3490 ×3

== ENCOUNTER 2020-04-21 20:39 | Emergency (ER) | payer MEDICAID ==
--- NOTE | 2020-04-21 20:59 | ER Document Report ---
ED Medical Screen (RME) - General Chief Complaint: Chest Pain Stated Complaint: SHORTNESS OF BREATH Time Seen by Provider: 04/21/20 20:50 Primary Care Provider: CLIFTON NORWOOD PA-C [Primary Care Provider] - Follow up as needed Mode of Arrival: Ambulatory Information source: Patient Notes: 40-year-old female presented to ED for chest pain since this morning with pain under the right breast. She states her heart attack was in 2010 at that time they placed a pacemaker defibrillator. She states today she got short of breath after she went down the stairs and then back up the stairs doing her laundry around 6 PM tonight. She states the pain is been there all day. She does have a history of high blood pressure anemia hypothyroid PTSD depression autism ADHD about a 2 medication and a . She states she does not smoke drink or do any drugs. She states she only became short of breath after she went up and down the stairs. I have greeted and performed a rapid initial assessment of this patient. A comprehensive ED assessment and evaluation of the patient, analysis of test results and completion of medical decision making process will be conducted by an additional ED providers. TRAVEL OUTSIDE OF THE [place] IN LAST 30 DAYS: No - Related Data Allergies/Adverse Reactions: No Known Allergies Allergy (Verified 03/29/19 16:33) Past Medical History - Social History Chew tobacco use (# tins/day): No Frequency of alcohol use: None Drug Abuse: None Family history: Reviewed & Not Pertinent - Past Medical History Cardiac Medical History: Reports: Hx Coronary Artery Disease - It is unknown if the patient has coronary artery disease, Hx Heart Attack - cardiac arrest, Hx Hypertension Pulmonary Medical History: Denies: Hx Tuberculosis Endocrine Medical History: Reports: Hx Hyperthyroidism Renal/ Medical History: Denies: Hx Peritoneal Dialysis GI Medical History: Reports: Hx Gastroesophageal Reflux Disease Psychiatric Medical History: Reports: Hx Depression - and anxiety, Hx Post Traumatic Stress Disorder Past Surgical History: Reports: Hx Cardiac Surgery - AICD, Hx Section - x1 - Immunizations Hx Diphtheria, Pertussis, Tetanus Vaccination: Yes - 2010 Physical Exam - Vital signs Vitals: Temp 98.2 F 04/21/20 20:47 Course - Vital Signs Vital signs: Temp Pulse Resp BP Pulse Ox 98.2 F 78 17 130/84 H 99 04/21/20 20:48 04/21/20 20:48 04/21/20 20:48 04/21/20 20:48 04/21/20 20:48 Doctor's Discharge - Discharge Referrals: CLIFTON NROWOOD PA-C [Primary Care Provider] - Follow up as needed
--- NOTE | 2020-04-21 21:41 | ER Document Report ---
ED Cardiac - General Chief Complaint: Chest Pain Stated Complaint: SHORTNESS OF BREATH Time Seen by Provider: 04/21/20 20:50 Primary Care Provider: CLIFTON NORWOOD PA-C [Primary Care Provider] - Follow up as needed Mode of Arrival: Ambulatory TRAVEL OUTSIDE OF THE [place] IN LAST 30 DAYS: No - HPI Notes: Patient is a 40-year-old female with a history of cardiac arrest, defibrillator and pacemaker who presents for chest pain and shortness of breath. Patient states she has a dull achy pain starting in her right armpit that radiates to her right chest. She also endorses becoming short of breath after going down and up the stairs to get her laundry. She states she has had a prior episode that was similar which was diagnosed as a muscle sprain. She denies headache, palpitations, cough, nausea, vomiting, abdominal pain, diarrhea, constipation. Patient has a hx of hypothyroidism, anemia, PTSD, anxiety, depression and PTSD. Patient denies any tobacco, alcohol or recreational drug use. - Related Data Allergies/Adverse Reactions: No Known Allergies Allergy (Verified 03/29/19 16:33) Past Medical History - General Information source: Patient - Social History Smoking Status: Never Smoker Chew tobacco use (# tins/day): No Frequency of alcohol use: None Drug Abuse: None Family History: Hypertension Patient has homicidal ideation: No - Past Medical History Cardiac Medical History: Reports: Hx Coronary Artery Disease - It is unknown if the patient has coronary artery disease, Hx Heart Attack - cardiac arrest, Hx Hypertension Pulmonary Medical History: Denies: Hx Tuberculosis Endocrine Medical History: Reports: Hx Hyperthyroidism Renal/ Medical History: Denies: Hx Peritoneal Dialysis GI Medical History: Reports: Hx Gastroesophageal Reflux Disease Psychiatric Medical History: Reports: Hx Depression - and anxiety, Hx Post Traumatic Stress Disorder Past Surgical History: Reports: Hx Cardiac Surgery - AICD, Hx Section - x1 - Immunizations Hx Diphtheria, Pertussis, Tetanus Vaccination: Yes - 2010 Review of Systems - Review of Systems Constitutional: No symptoms reported EENT: No symptoms reported Cardiovascular: See HPI Respiratory: See HPI Gastrointestinal: No symptoms reported Genitourinary: No symptoms reported Female Genitourinary: No symptoms reported Musculoskeletal: No symptoms reported Skin: No symptoms reported Hematologic/Lymphatic: No symptoms reported Neurological/Psychological: No symptoms reported Physical Exam - Vital signs Vitals: Temp 98.2 F 10/18/20 20:47 - Notes Notes: PHYSICAL EXAMINATION: VITALS: Vitals reviewed and within normal limits. GENERAL: Well-appearing, well-nourished and in no acute distress. HEAD: Atraumatic, normocephalic. EYES: Pupils equal, round, and reactive to light, extraocular movements intact, sclera anicteric, conjunctiva are normal. ENT: Nares patent. Moist mucous membranes. Oropharynx clear without exudates. NECK: Normal range of motion, supple without lymphadenopathy. LUNGS: Breath sounds clear to auscultation bilaterally and equal. No wheezes rales or rhonchi. HEART: Regular, rate, and rhythm without murmurs. CHEST WALL: Mild tenderness to palpation to the right axilla and right chest wall superior to the right breast. No visible lesions. No palpable axillary lymph nodes. ABDOMEN: Soft, nontender, normoactive bowel sounds. No guarding, no rebound. No masses appreciated. EXTREMITIES: Normal range of motion, no pitting or edema. No cyanosis. NEUROLOGICAL: No focal neurological deficits. Moves all extremities spontaneously and on command. PSYCH: Normal mood, normal affect. SKIN: Warm, Dry, normal turgor, no rashes or lesions noted. Course - Re-evaluation Re-evalutation: Patient is a 40-year-old female with a history of cardiac arrest and pacemaker/defibrillator placement who presents with chest pain and shortness of breath. Vital signs are within normal limits. On exam, mild tenderness to palpation to the right axilla and right chest wall just superior to the right breast. No palpable lymph nodes or lesions/rash visible. Chest x-ray negative. CBC unremarkable. CMP unremarkable within normal limits. Troponin negative. Patient re-assessed and she continues to have chest wall pain but denies SOB. Based on presentation and workup, I am suspicious of chest wall pain and less concerned for cardiac related pain. I discussed the results with the patient. She has an appointment tomorrow morning with her PCP and I advised she keep that appointment. Patient given a dose of tylenol 975mg PO for pain relief. Patient will be discharged home with prompt follow up. Return precautions given. Patient understands and agrees with the plan. - Vital Signs Vital signs: Temp Pulse Resp BP Pulse Ox 98.1 F 78 19 120/85 100 04/21/20 22:53 04/21/20 20:48 04/21/20 22:53 04/21/20 22:53 04/21/20 22:53 - Laboratory Result Diagrams: 04/21/20 21:20 04/21/20 21:20 Laboratory results interpreted by me: 04/21/20 21:20 Hgb 11.0 L Hct 33.3 L MCV 79 L MCH 26.0 L RDW 19.0 H - Diagnostic Test Radiology reviewed: Reports reviewed Radiology results interpreted by me: Chest X-Ray 04/21/20 20:55 IMPRESSION: No acute abnormality as above. copyright 2010 [employer]- All Rights Reserved - EKG Interpretation by Me Additional EKG results interpreted by me: Sinus rhythm with a rate of 67. QTc 418. Normal axis. Flattened T waves in lead I and V2. No T wave inversions or ST segment changes in consecutive leads. Discharge - Discharge Clinical Impression: Chest wall pain, Shortness of breath Condition: Stable Disposition: HOME, SELF-CARE Instructions: Chest Wall Pain ([facility]), Chest Pain of Unclear Cause ([facility]) Referrals: CLIFTON NORWOOD PA-C [Primary Care Provider] - Follow up as needed
--- NOTE | 2020-04-21 21:46 | RADIOLOGY REPORT (SQ) ---
EXAM DESCRIPTION: XR CHEST 2 VIEWS COMPLETED DATE/TME: 04/21/2020 20:55 CLINICAL HISTORY: 40 years, Female, chest pain and short of breath pacemaker def COMPARISON: October 09, 2019 NUMBER OF VIEWS: 2 TECHNIQUE: PA and lateral views of the chest were obtained. LIMITATIONS: Pacemaker/ICD generator partially obscures the left midlung zone as before. FINDINGS: The heart size is within normal limits. Lungs are clear as visualized. Single-lead AICD is again noted with the lead projecting in the region of the right ventricle. There is no evidence of pleural effusion or pneumothorax. No bony abnormality is seen. IMPRESSION: No acute abnormality as above. copyright 2010 [employer] [facility] [employer]- All Rights Reserved
[2020-04-21 21:49] LABS: ABSOLUTE EOSINOPHILS # (AUTO) 0.1 10^3/uL (0.0-0.6); ABSOLUTE LYMPHOCYTES (AUTO) 1.9 10^3/uL (0.5-4.7); ABSOLUTE MONOCYTES (AUTO) 0.5 10^3/uL (0.1-1.4); ABSOLUTE NEUT (AUTO) 3.1 10^3/uL (1.7-8.2); BASOPHILS % (AUTO) 0.8 % (0-2); HEMATOCRIT 33.3 % (36.0-47.0); LYMPHOCYTES % (AUTO) 33.9 % (13-45); MEAN CORPUSCULAR HGB CONC 32.9 g/dL (32.0-36.0); MEAN CORPUSCULAR VOLUME 79 fl (80-97); MONOCYTES % (AUTO) 9.3 % (3-13); PLATELET COUNT 257 10^3/uL (150-450); RED BLOOD COUNT 4.22 10^6/uL (3.72-5.28); TOTAL CELLS COUNTED % (AUTO) 100 %; WHITE BLOOD COUNT 5.6 10^3/uL (4.0-10.5)
[2020-04-21 22:02] LABS: ALBUMIN 4.2 g/dL (3.5-5.0); ALKALINE PHOSPHATASE 54 U/L (38-126); ANION GAP 8 (5-19); ASPARTATE AMINO TRANSFERASE 26 U/L (14-36); BILIRUBIN,DIRECT 0.3 mg/dL (0.0-0.4); BILIRUBIN,TOTAL 0.5 mg/dL (0.2-1.3); BLOOD UREA NITROGEN 10 mg/dL (7-20); CALCIUM 9.2 mg/dL (8.4-10.2); CARBON DIOXIDE 24 mmol/L (22-30); CHLORIDE 107 mmol/L (98-107); GLUCOSE 103 mg/dL (75-110); TOTAL PROTEIN 7.7 g/dL (6.3-8.2)
[2020-04-21] MEDS ORDERED: ACETAMINOPHEN 325 MG TABLET PO ONE (22:47)
[2020-04-21] MEDS ORDERED: ACETAMINOPHEN 325 MG TABLET ONE (22:54)
[2020-04-21 22:59] VITALS: BP 120/85
--- NOTE | 2020-04-22 00:19 | EKG REPORT ---
SEVERITY:- BORDERLINE ECG - SINUS RHYTHM BORDERLINE T ABNORMALITIES, ANT-LAT LEADS : Confirmed by: Tisha Solorzano 22-Apr-2020 00:19:23
== END 2020-04-21 22:59 | disposition home or self-care (01) ==
LOC: ER 20:39
DX: R06.02 Shortness of breath (principal); R07.9 Chest pain, unspecified; I25.2 Old myocardial infarction; Z95.810 Presence of automatic (implantable) cardiac defibrillator
CPT/HCPCS: 93005; 99285; 36415; 83735; 85025; 80053; 84484; 71046; 93010; J3490